=== PATIENT | male | born 1965 | race Two or more races ===

== ENCOUNTER → 2020-07-12 13:08 | Outpatient (BNVA) | payer OTHER, SELFPAY | PROVIDERS: Visit Provider Internal Medicine | DX: F11.99 Opioid use, unspecified with unspecified opioid-induced disorder (principal); Z79.899 Other long term (current) drug therapy | CPT/HCPCS: 80305; 99211 ==

== ENCOUNTER → 2020-08-10 11:00 | Outpatient (BNVA) | payer OTHER, SELFPAY | PROVIDERS: Visit Provider Internal Medicine | DX: Z76.89 Persons encountering health services in other specified circumstances (principal) ==

== ENCOUNTER 2020-08-10 12:32 | Outpatient (REF) | payer OTHER, SELFPAY | END 2020-08-10 12:33 | disposition home or self-care (01) | LOC: HO.LAB 12:32 | PROVIDERS: Visit Provider Internal Medicine | DX: Z20.828 Contact with and (suspected) exposure to other viral communicable diseases (principal) | CPT/HCPCS: 99212; C9803; U0003 ==

== ENCOUNTER → 2020-08-24 13:09 | Outpatient (BNVA) | payer OTHER, SELFPAY | PROVIDERS: Visit Provider Internal Medicine | DX: Z13.89 Encounter for screening for other disorder (principal) | CPT/HCPCS: 99211 ==

== ENCOUNTER → 2020-08-26 11:17 | Outpatient (BNVA) | payer OTHER, SELFPAY | PROVIDERS: PCP Internal Medicine; Referring Provider Internal Medicine; Visit Provider Nurse Practitioner | DX: Z76.89 Persons encountering health services in other specified circumstances (principal) ==

== ENCOUNTER → 2020-09-07 13:24 | Outpatient (BNVA) | payer OTHER, SELFPAY | PROVIDERS: Visit Provider Internal Medicine | DX: Z76.89 Persons encountering health services in other specified circumstances (principal) ==

== ENCOUNTER 2020-11-11 14:55 | Outpatient (REF) | payer OTHER, SELFPAY ==
[2020-11-13 22:57] LABS: Fentanyl, Ur NEGATIVE ng/mL (<0.5)
[2020-11-15 13:08] LABS: Buprenorphine Negative; Norbuprenorphine Negative
== END 2020-11-11 14:56 | disposition home or self-care (01) ==
LOC: HO.LNP 14:55
PROVIDERS: Visit Provider Internal Medicine
DX: F11.99 Opioid use, unspecified with unspecified opioid-induced disorder (principal); Z51.81 Encounter for therapeutic drug level monitoring; Z79.899 Other long term (current) drug therapy
CPT/HCPCS: 80305; 80348; 80354; 99211

== ENCOUNTER 2020-11-24 10:03 | Outpatient (REF) | payer OTHER, SELFPAY ==
[2020-11-28 07:51] LABS: Buprenorphine 13 ng/mL; Norbuprenorphine 45 ng/mL
== END 2020-11-24 10:04 | disposition home or self-care (01) ==
LOC: HO.LNP 10:03
PROVIDERS: Visit Provider Internal Medicine
DX: F11.99 Opioid use, unspecified with unspecified opioid-induced disorder (principal)
CPT/HCPCS: 80305; 80348; 99211

== ENCOUNTER → 2020-11-30 14:08 | Outpatient (BNVA) | payer OTHER, SELFPAY | PROVIDERS: PCP Physician Assistant; Visit Provider Internal Medicine | DX: F11.99 Opioid use, unspecified with unspecified opioid-induced disorder (principal); Z51.81 Encounter for therapeutic drug level monitoring; Z79.899 Other long term (current) drug therapy | CPT/HCPCS: 80305; 99211 ==

== ENCOUNTER 2020-12-14 13:33 | Outpatient (REF) | payer OTHER, SELFPAY ==
[2020-12-17 18:06] LABS: Buprenorphine 14 ng/mL; Norbuprenorphine 10 ng/mL
== END 2020-12-14 13:34 | disposition home or self-care (01) ==
LOC: HO.LAB 13:33
PROVIDERS: Visit Provider Internal Medicine
DX: F11.99 Opioid use, unspecified with unspecified opioid-induced disorder (principal); Z51.81 Encounter for therapeutic drug level monitoring
CPT/HCPCS: 80305; 80348; 99211

== ENCOUNTER 2020-12-22 13:46 | Outpatient (REF) | payer OTHER, SELFPAY ==
[2020-12-25 11:56] LABS: Buprenorphine 52 ng/mL; Norbuprenorphine 27 ng/mL
== END 2020-12-22 13:47 | disposition home or self-care (01) ==
LOC: HO.LAB 13:46
PROVIDERS: Visit Provider Internal Medicine
DX: F11.99 Opioid use, unspecified with unspecified opioid-induced disorder (principal); Z51.81 Encounter for therapeutic drug level monitoring
CPT/HCPCS: 80305; 80348; 99211

== ENCOUNTER 2021-06-19 13:28 | Outpatient (REF) | payer OTHER, SELFPAY | END 2021-06-19 13:29 | disposition home or self-care (01) | LOC: HO.LAB 13:28 | PROVIDERS: PCP Internal Medicine; Visit Provider Internal Medicine | DX: Z20.822 Contact with and (suspected) exposure to COVID-19 (principal) | CPT/HCPCS: C9803; U0003; U0005 ==

== ENCOUNTER 2021-09-15 16:14 | Emergency (ER) | payer OTHER, SELFPAY ==
--- NOTE | ~2021-09-15 | XR_ITS ---
EXAMINATION: XR CHEST CLINICAL INFORMATION: Fever, shortness of breath COMPARISON: Chest x-ray 07/16/2017 TECHNIQUE: 2 views of the chest were obtained. FINDINGS: Normal cardiomediastinal silhouette. Adequate expansion of the lungs. Minimal pleural parenchymal changes at the bilateral lung apices. No focal consolidation. No pleural effusion or pneumothorax. No acute osseous abnormality. Degenerative changes of the thoracic spine. XR/XR chest 2V IMPRESSION: No acute disease within the chest. No focal consolidation.
[2021-09-15 16:21] VITALS: BP 130/86; PULSE 88; RESP 24; TEMP 37; O2SAT 99; BMI 32.8
[2021-09-15 19:11] LABS: Influenza A PCR NEGATIVE (Negative); Influenza B PCR NEGATIVE (Negative); Resp Syncy Virus RNA Qual PCR NEGATIVE (Negative); SARS COV2 PCR INHOUSE POSITIVE (Negative)
== END 2021-09-15 19:35 | disposition left against medical advice (07) ==
PROVIDERS: Nurse Practitioner Family; Emergency Provider Emergency Medicine; PCP Internal Medicine
DX: U07.1 COVID-19 (principal); R06.02 Shortness of breath
CPT/HCPCS: 0241U; 71046; 99282; 99283

== ENCOUNTER 2022-06-08 12:38 | Outpatient (REF) | payer OTHER, SELFPAY ==
--- NOTE | ~2022-06-08 | XR_ITS ---
EXAMINATION: 1. RADIOGRAPHS RIGHT SHOULDER 2. RADIOGRAPHS LUMBAR SPINE 3. RADIOGRAPHS LEFT KNEE 4. RADIOGRAPHS LEFT ANKLE CLINICAL INFORMATION: Diffuse pain COMPARISON: Radiographs of the lumbar spine and left knee May 27, 2019 TECHNIQUE: 4 views of the right shoulder, 3 views of the lumbar spine, 2 views of the left knee and 3 views of the left ankle were obtained. FINDINGS: Right shoulder: Visualized portion of the proximal right humerus demonstrate no fracture. Humeral head demonstrates good articulation with the glenoid fossa. There is a small to moderate-sized osteophyte off the inferior glenoid margin. Subtle calcifications are noted along the soft tissues superior to the humeral head. The acromioclavicular joint is normal in appearance. Visualized right-sided ribs and lung parenchyma are unremarkable. Lumbar spine: 5 nonrib-bearing lumbar vertebral bodies are visualized. Alignment is within normal limits. Lumbar vertebral body heights are maintained. There is similar moderate narrowing of the L2/3 disc space height with mild narrowing of the L5/S1 disc space height. Small osteophytes are scattered throughout the lumbar spine. Mild degenerative changes of the posterior elements of the lower lumbar spine. Sacroiliac joints are symmetric. Mild vascular calcifications. Left knee: No fracture or dislocation. No joint effusion. Mild to moderate narrowing of the medial joint space height. Small osteophytes of the medial compartment. No focal soft tissue swelling of the anterior knee. Left ankle: Visualized portion of the distal tibia and fibula demonstrate no fracture. Ankle mortise is maintained. No focal soft tissue swelling of the ankle. Small osteophytes of the inferior medial malleolus. No gross ankle joint effusion. Prominent plantar calcaneal enthesophyte. XR/XR shoulder RT min 2V IMPRESSION: 1. Mild degenerative changes of the right shoulder with some adjacent soft tissue calcifications, possibly representing calcific tendinosis or hydroxyapatite deposition disease. 2. Mild degenerative changes of the lumbar spine without compression deformity. 3. Mild to moderate degenerative changes of the medial compartment of the left knee. 4. Mild degenerative changes of the left ankle without fracture or dislocation.
[2022-06-08 12:56] LABS: MANUAL DIFF FLAG NO
[2022-06-08 13:18] LABS: Basophils Percent Auto 0.3 % (0-2); Eosinophils Absolute Auto 0.2 X10*3/uL (0.0-0.4); Eosinophils Percent Auto 2.9 % (0-4); Hematocrit 43.7 % (42.0-52.0); Hemoglobin 14.2 g/dl (14.0-18.0); Imm Gran Abs Auto 0.02 X10*3/uL (0.00-0.03); Imm Gran Pct Auto 0.3 % (0.0-0.4); Lymphocytes Absolute Auto 1.7 X10*3/uL (1.2-4.9); Lymphocytes Percent Auto 26.8 % (20-40); Mean Corpuscular HGB Conc 32.5 g/dl (31.0-36.0); Mean Corpuscular Hemoglobin 29.2 pg (27.0-33.0); Mean Corpuscular Volume 89.9 fL (80.0-98.0); Mean Platelet Volume 9.2 fL (9.4-12.4); Monocytes Absolute Auto 0.3 X10*3/uL (0.1-1.2); Monocytes Percent Auto 5.1 % (2-11); Neutrophils Absolute Auto 4.1 x10*3/uL (2.0-8.3); Neutrophils Percent Auto 64.6 % (45-73); Platelet Count 238 X10*3/uL (160-400); Red Blood Count 4.86 X10*6/uL (4.60-5.80); Red Cell Distribution Width 13.9 % (11.0-16.0); White Blood Count 6.3 X10*3/uL (4.8-10.8)
[2022-06-08 13:37] LABS: Alanine Aminotransferase 20 U/L (0-40); Albumin Level 4.3 g/dL (3.5-5.0); Alkaline Phosphatase 102 U/L (39-117); Anion Gap 15 (12-20); Aspartate Amino Transferase 15 U/L (5-37); Bilirubin Total 0.3 mg/dL (0.0-1.0); Blood Urea Nitrogen 14 mg/dL (9-16); Calcium 9.4 mg/dL (8.4-10.2); Carbon Dioxide 24 mmol/L (22-29); Chloride 104 mmol/L (96-108); Cholesterol 240 mg/dL; Estimated Glomerular Filt Rate 51; Glucose Random 248 mg/dL (60-115); HDL Cholesterol 48 mg/dL; LDL Cholesterol Calculated 171 mg/dl; Potassium 4.1 mmol/L (3.3-5.1); Sodium 139 mmol/L (135-145); Total Protein 7.4 g/dL (6.5-8.0); Triglycerides 106 mg/dL
[2022-06-08 13:58] LABS: Free T4 (Free Thyroxine) 0.87 ng/dL (0.71-1.85); Prostate Specific Antigen Scr 1.67 ng/mL (<0.05-4.0); Thyroid Stimulating Hormone 0.89 uIU/mL (0.32-4.0)
[2022-06-08 14:07] LABS: HBS Num1 1.04 mIU/mL (0-7.99); HBsAGNum1 0.21 S/CO (0.00-0.99); Hepatitis B Core Antibody Nonreactive (Nonreactive); Hepatitis B Surface Antigen Negative (Negative); ~HepC Num1 0.13 S/CO (0.00-0.79); ~Hepatitis B Surface Antibody NONREACTIVE (Nonreactive); ~Hepatitis C Antibody Nonreactive (Nonreactive)
[2022-06-08 14:20] LABS: Folate 16.5 ng/mL (> or = 4.0); Vitamin B12 232 pg/mL (200-900)
[2022-06-11 21:37] LABS: TS Negative Control Passed; TS Panel A 0; TS Panel B 0; TS Positive Control Passed; TSpotTB Negative (Negative)
== END 2022-06-08 12:39 | disposition home or self-care (01) ==
LOC: HO.LAB 12:38
PROVIDERS: PCP Internal Medicine; Visit Provider Internal Medicine
DX: E78.00 Pure hypercholesterolemia, unspecified (principal); R79.89 Other specified abnormal findings of blood chemistry; M25.511 Pain in right shoulder; M54.50 Low back pain, unspecified; M25.562 Pain in left knee; M25.572 Pain in left ankle and joints of left foot
CPT/HCPCS: 36415; 72100; 73030; 73560; 73600; 80053; 80061; 82607; 82746; 84153; 84439; 84443; 85025; 86481; 86704; 86706; 86803; 87340

== ENCOUNTER 2022-07-26 11:58 | Outpatient (REF) | payer OTHER, SELFPAY ==
--- NOTE | 2022-07-26 08:15 | EMG_ITS ---
Right median and ulnar motor and sensory studies were performed. Right radial sensory study was performed and paraspinal muscles were tested with a needle. IMPRESSION: 1. Mild right median neuropathy across carpal tunnel. 2. Mild right ulnar neuropathy across cubital tunnel. MD HUSSEIN Méndez/NEY / [id number]
== END 2022-07-26 11:59 | disposition home or self-care (01) ==
LOC: HO.NEURO 11:58
PROVIDERS: Visit Provider Internal Medicine
DX: R73.9 Hyperglycemia, unspecified (principal)
CPT/HCPCS: 95886; 95909

== ENCOUNTER 2022-10-10 15:00 | Outpatient (REF) | payer OTHER, SELFPAY ==
--- NOTE | ~2022-10-10 | XR_ITS ---
EXAMINATION: XR ELBOW, LEFT CLINICAL INFORMATION: Pain COMPARISON: None TECHNIQUE: AP, lateral, and oblique views of the left elbow. FINDINGS: The bones and soft tissues are normal. No fracture or joint effusion. Alignment is anatomic. Joint spaces are maintained. XR/XR elbow LT 2V IMPRESSION: No acute osseous changes to explain patient's pain symptoms.
--- NOTE | ~2022-10-10 | XR_ITS ---
EXAMINATION: XR knee LT 2V CLINICAL INFORMATION: Reason for Exam M25.562 - Pain in left knee COMPARISON: None available at the time of this dictation. TECHNIQUE: Frontal and lateral FINDINGS: BONES: No fracture or dislocation is present. JOINTS: Narrowing of joint spaces and developed osteophytes from the edges of articular surfaces suggest degenerative osteoarthritis. There is a small knee joint effusion. SOFT TISSUE: Normal XR/XR knee LT 2V IMPRESSION: Mild to moderate degenerative osteoarthritis medial compartment. Small knee joint effusion.
[2022-10-10 15:19] LABS: MANUAL DIFF FLAG NO
[2022-10-10 15:43] LABS: Basophils Percent Auto 0.4 % (0-2); Eosinophils Absolute Auto 0.2 X10*3/uL (0.0-0.4); Eosinophils Percent Auto 2.3 % (0-4); Hematocrit 42.2 % (42.0-52.0); Hemoglobin 13.8 g/dl (14.0-18.0); Imm Gran Abs Auto 0.03 X10*3/uL (0.00-0.03); Imm Gran Pct Auto 0.4 % (0.0-0.4); Lymphocytes Absolute Auto 1.8 X10*3/uL (1.2-4.9); Mean Corpuscular HGB Conc 32.7 g/dl (31.0-36.0); Mean Corpuscular Hemoglobin 29.3 pg (27.0-33.0); Mean Corpuscular Volume 89.6 fL (80.0-98.0); Mean Platelet Volume 8.9 fL (9.4-12.4); Monocytes Absolute Auto 0.5 X10*3/uL (0.1-1.2); Neutrophils Percent Auto 65.9 % (45-73); Platelet Count 267 X10*3/uL (160-400); Red Blood Count 4.71 X10*6/uL (4.60-5.80); Red Cell Distribution Width 13.4 % (11.0-16.0); White Blood Count 7.7 X10*3/uL (4.8-10.8)
[2022-10-10 16:14] LABS: Estimated Average Glucose 140 mg/dL; Hemoglobin A1c % 6.5 %
[2022-10-10 16:23] LABS: Alanine Aminotransferase 70 U/L (0-40); Albumin Level 4.1 g/dL (3.5-5.0); Alkaline Phosphatase 123 U/L (39-117); Anion Gap 14 (12-20); Aspartate Amino Transferase 25 U/L (5-37); Bilirubin Total 0.5 mg/dL (0.0-1.0); Blood Urea Nitrogen 21 mg/dL (9-16); Calcium 9.4 mg/dL (8.4-10.2); Carbon Dioxide 22 mmol/L (22-29); Chloride 106 mmol/L (96-108); Cholesterol 217 mg/dL; Estimated Glomerular Filt Rate > 60; Glucose Random 108 mg/dL (60-115); HDL Cholesterol 43 mg/dL; LDL Cholesterol Calculated 134 mg/dl; Potassium 4.2 mmol/L (3.3-5.1); Sodium 138 mmol/L (135-145); Total Protein 7.3 g/dL (6.5-8.0); Triglycerides 201 mg/dL
[2022-10-10 16:33] LABS: Free T4 (Free Thyroxine) 1.15 ng/dL (0.71-1.85); Thyroid Stimulating Hormone 1.05 uIU/mL (0.32-4.0)
== END 2022-10-10 15:01 | disposition home or self-care (01) ==
LOC: HO.LAB 15:00
PROVIDERS: PCP Internal Medicine; Visit Provider Internal Medicine
DX: N28.9 Disorder of kidney and ureter, unspecified (principal); M25.522 Pain in left elbow; M25.562 Pain in left knee; E78.00 Pure hypercholesterolemia, unspecified
CPT/HCPCS: 36415; 73070; 73560; 80053; 80061; 83036; 84439; 84443; 85025

== ENCOUNTER 2022-10-11 16:25 | Outpatient (REF) | payer OTHER, SELFPAY ==
--- NOTE | ~2022-10-11 | CT_ITS ---
EXAMINATION: CT HEAD WITHOUT CONTRAST CLINICAL INFORMATION: Headache. Unspecified. COMPARISON: CT head 10/26/2019 TECHNIQUE: Contiguous axial imaging was performed from the skull base to vertex without intravenous administration of contrast. This CT examination was performed using dose optimization techniques as appropriate, variously including the following: *Automated exposure control *Adjustment of mA and/or kV according to patient size (this includes techniques or standardized protocols for targeted exams where dose is matched to indication/reason for exam; i.e. extremities or head) *Use of iterative reconstruction technique DLP: 952 mGy-cm FINDINGS: Focal hypodensity is present in the anterior limb of the right internal capsule extending into the adjacent body of the caudate nucleus. These findings are new compared with 10/26/2019. Focal subcortical hypodensity is present in the posterior left middle frontal lobe region (series 4 image 54) new compared with 10/26/2019. Mild scattered subcortical and periventricular white matter patchy hypodensities elsewhere are visualized and appear more prominent than 10/26/2019. Mild diffuse commensurate prominence of ventricles and sulci is noted slightly more prominent than on the 10/26/2019 examination. No intracranial hemorrhage, tumors or definitive acute infarcts are visualized. The orbits and globes are normal in appearance. No significant opacification of the visualized paranasal sinuses, mastoid air cells and middle ear cavities. Chronic posttraumatic deformity of the inferior wall the left orbit is noted with mild focal herniation of intraorbital fat and no gross herniation of the extraocular muscles. CT/CT head/brain wo IV con IMPRESSION: *Chronic appearing lacunar infarct within the anterior limb of the right internal capsule and adjacent caudate nucleus and mild scattered subcortical and periventricular white matter chronic microangiopathic ischemic changes. These findings are new compared with 10/26/2019 and could correlate with hypertensive or diabetic microangiopathic ischemic disease. 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
== END 2022-10-11 16:26 | disposition home or self-care (01) ==
LOC: HO.CT 16:25
PROVIDERS: PCP Internal Medicine; Visit Provider Internal Medicine
DX: R51.9 Headache, unspecified (principal); W19.XXXA Unspecified fall, initial encounter
CPT/HCPCS: 70450

== ENCOUNTER 2022-12-13 10:05 | Outpatient (REF) | payer OTHER, SELFPAY ==
--- NOTE | ~2022-12-13 | US_ITS ---
EXAMINATION: US ABDOMEN COMPLETE CLINICAL INFORMATION: Other specified abnormal findings of blood chemistry. COMPARISON: CT abdomen and pelvis without contrast 09/09/2013. TECHNIQUE: Real-time imaging of the abdominal viscera. Technically very limited study secondary to bowel gas and body habitus. FINDINGS: PANCREAS: The pancreas appears unremarkable, without masses or ductal dilatation, with the exception of the tail which is obscured by bowel gas. ABDOMINAL AORTA: The proximal aorta and distal abdominal aorta could not be seen. The mid abdominal aorta appeared normal. INFERIOR VENA CAVA: Visualized portions are normal. LIVER: The liver is normal in size. The liver contour is normal. There is diffuse increased liver parenchymal echogenicity, consistent with hepatic steatosis. Focal fatty sparing is seen adjacent to the gallbladder. No worrisome solid focal hepatic lesion. There is no intrahepatic biliary duct dilatation seen. GALLBLADDER: Normal. The gallbladder is physiologically distended without evidence of stones, sludge, polyps, wall thickening or pericholecystic fluid. COMMON BILE DUCT: Normal in caliber measuring 0.5 cm in diameter. RIGHT KIDNEY: No hydronephrosis. Some echogenic non-shadowing foci are seen thought to represent vascular interfaces rather than shadowing stones. No renal calculi or focal parenchymal lesions. The kidney measures 10.4 cm in maximum dimension. LEFT KIDNEY: Normal. No hydronephrosis. No renal calculi or focal parenchymal lesions. The kidney measures 10.3 cm in maximum dimension. SPLEEN: Spleen is mildly enlarged measuring 12.6 cm in maximum dimension. FREE FLUID: None. US/US abdomen complete IMPRESSION: 1. Hepatic steatosis. 2. Mild splenomegaly.
== END 2022-12-13 10:06 | disposition home or self-care (01) ==
LOC: HO.US 10:05
PROVIDERS: Visit Provider Internal Medicine
DX: R79.89 Other specified abnormal findings of blood chemistry (principal)
CPT/HCPCS: 76700

== ENCOUNTER 2023-02-14 08:52 | Emergency (ER) | payer OTHER, SELFPAY ==
--- NOTE | ~2023-02-14 | CT_ITS ---
EXAMINATION: CT brain and CT cervical spine without contrast. CLINICAL INDICATIONS: Acute head injury with LOC. TECHNIQUE: 2 mm thin axial and reformatted 2 mm thin sagittal coronal images of brain were obtained without contrast. Axial 3 mm thin and reformatted 2 mm thin sagittal and coronal images of cervical spine were obtained without contrast. DLP [address] examination was performed using dose optimization technique as appropriate, variously including the following: Automated exposure control Adjustment of MA and/or KV according to patient size(this includes techniques or standardized protocols for targeted exams where dose is matched to indication/reason for exam; extremities or head. Use of iterative reconstruction techniques. .. COMPARISON: CT brain 10/26/2019 and 10/11/2022. FINDINGS: There is no acute intra-axial, extra-axial bleed, masses or midline shift. There is no acute infarction evolution. There is no edema. There is a hypodensity in the right caudate nucleus new since 10/11/2022. Hypodensity in the right anterior limb of internal capsule is stable. The diffuse periventricular hypodensity seen throughout both cerebral hemispheres without mass effect. The lateral ventricles are symmetrical in size and configuration without enlargement. Bone windows reveal no acute calvarial abnormality. There is an old blowout fracture left inferior orbital wall, stable. The paranasal sinuses and mastoids cells are well-aerated and clear. Cervical spine: There is mild straightening of cervical lordosis. The vertebral heights, alignment and disc heights are normal. There is no visible acute fracture, dislocation or subluxation. The craniovertebral junction is normal. There is mild degenerative changes C1-C2 alignment. There is small fracture fragment seen superior to the C2 dense likely old injury or an enthesophyte. No visible acute fracture or dislocation seen. The prevertebral and the paravertebral soft tissues are normal. The airway is widely patent. The thyroid lobes are symmetrical and normal. The TM joints are symmetrical and normal CT/CT cervical spine wo IV con IMPRESSION: New area of right caudate nucleus hypodensity since the previous exam. Question acute versus old infarct. There is hypodensity along the anterior limb of right internal capsule which is unchanged likely chronic infarct. No acute intracranial bleed. No acute fracture, dislocation or subluxation seen the cervical spine. Small bone density of the tip of C2 dense likely an old fracture or an osteophyte. The prevertebral soft tissues are normal.
[2023-02-14 08:59] VITALS: BP 122/70; BP 153/90; PULSE 76; PULSE 80; RESP 18; TEMP 36.6; O2SAT 97; O2SAT 98; BMI 39.4
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
[2023-02-14] MEDS: Acetaminophen 325 MG TABLET 975 MG PO (09:24)
--- NOTE | 2023-02-14 11:36 | PC.NURSE ---
per MD Sin collar removed
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
== END 2023-02-14 12:10 | disposition home or self-care (01) ==
PROVIDERS: Emergency Provider Emergency Medicine; PCP Internal Medicine
DX: S00.03XA Contusion of scalp, initial encounter (principal); M54.2 Cervicalgia; R51.9 Headache, unspecified; F17.210 Nicotine dependence, cigarettes, uncomplicated; V43.52XA Car driver injured in collision with other type car in traffic accident, initial encounter; Y93.9 Activity, unspecified; Y92.410 Unspecified street and highway as the place of occurrence of the external cause; Y99.9 Unspecified external cause status; Z79.899 Other long term (current) drug therapy; Z71.6 Tobacco abuse counseling
CPT/HCPCS: 70450; 72125; 99283; 99284

== ENCOUNTER 2023-04-19 10:26 | Outpatient (REF) | payer OTHER, SELFPAY ==
--- NOTE | ~2023-04-19 | MR_ITS ---
EXAMINATION: MR BRAIN WITHOUT CONTRAST CLINICAL INFORMATION: Cerebral infarction, unspecified COMPARISON: CT head without contrast 02/14/2023 TECHNIQUE: Multiplanar multisequence MR imaging of the brain was obtained without intravenous contrast. FINDINGS: There is no acute infarct on diffusion-weighted imaging. Focus of susceptibility artifact adjacent to the atrium of the left lateral ventricle, likely sequela of remote microhemorrhage. No extra-axial collection or mass effect/herniation. Patchy periventricular, deep white matter, and brainstem T2 FLAIR hyperintensities consistent with moderate underlying microangiopathy. Chronic lacunar infarct involving the right caudate nucleus. No hydrocephalus. The ventricles are normal in morphology and size. The major flow voids at the skull base are preserved. The midline structures are normal. The cerebellar tonsils are normally positioned. The craniocervical junction is normal. Marrow signal is within normal limits. The visualized soft tissues are without significant abnormality. There is evidence of a prior left orbital floor fracture with herniation of orbital fat into the superior left maxillary antrum. Small mastoid fluid. MR/MR head/brain wo con IMPRESSION: 1. No acute intracranial abnormality. 2. Moderate chronic white matter microangiopathy. Chronic lacunar infarct in the right caudate nucleus
== END 2023-04-19 10:27 | disposition home or self-care (01) ==
LOC: HO.MRI 10:26
PROVIDERS: PCP Internal Medicine; Visit Provider Internal Medicine
DX: I63.9 Cerebral infarction, unspecified (principal)
CPT/HCPCS: 70551

== ENCOUNTER 2023-04-29 17:20 | Outpatient (REF) | payer OTHER, SELFPAY ==
[2023-04-29 17:37] LABS: MANUAL DIFF FLAG NO
[2023-04-29 17:52] LABS: Basophils Percent Auto 0.1 % (0-2); Eosinophils Absolute Auto 0.1 X10*3/uL (0.0-0.4); Eosinophils Percent Auto 1.7 % (0-4); Hematocrit 46.1 % (42.0-52.0); Hemoglobin 14.8 g/dl (14.0-18.0); Imm Gran Abs Auto 0.04 X10*3/uL (0.00-0.03); Imm Gran Pct Auto 0.5 % (0.0-0.4); Immature Retic Fraction 13.8 % (2.3-13.4); Lymphocytes Absolute Auto 1.6 X10*3/uL (1.2-4.9); Lymphocytes Percent Auto 20.4 % (20-40); Mean Corpuscular HGB Conc 32.1 g/dl (31.0-36.0); Mean Corpuscular Hemoglobin 29.5 pg (27.0-33.0); Mean Corpuscular Volume 91.8 fL (80.0-98.0); Monocytes Absolute Auto 0.5 X10*3/uL (0.1-1.2); Monocytes Percent Auto 5.9 % (2-11); Neutrophils Absolute Auto 5.4 x10*3/uL (2.0-8.3); Neutrophils Percent Auto 71.4 % (45-73); Platelet Count 252 X10*3/uL (160-400); Red Blood Count 5.02 X10*6/uL (4.60-5.80); Red Cell Distribution Width 13.9 % (11.0-16.0); Retic HGB Equivalent 33.8 pg (30.0-35.0); Reticulocyte Percent 1.9 % (0.5-1.8); Reticulocytes Absolute 0.097 X10*6/uL (0.026-0.095); White Blood Count 7.6 X10*3/uL (4.8-10.8)
[2023-04-29 18:32] LABS: Alanine Aminotransferase 17 U/L (0-40); Albumin Level 4.3 g/dL (3.5-5.0); Alkaline Phosphatase 107 U/L (39-117); Anion Gap 15 (12-20); Aspartate Amino Transferase 15 U/L (5-37); Bilirubin Total 0.5 mg/dL (0.0-1.0); Blood Urea Nitrogen 14 mg/dL (9-16); Calcium 9.7 mg/dL (8.4-10.2); Carbon Dioxide 26 mmol/L (22-29); Chloride 104 mmol/L (96-108); Cholesterol 197 mg/dL; Estimated Glomerular Filt Rate > 60; Glucose Random 111 mg/dL (60-115); HDL Cholesterol 49 mg/dL; Iron 79 mcg/dL (45-160); LDL Cholesterol Calculated 124 mg/dl; Percent Iron Saturation 27 % (15-50); Potassium 4.6 mmol/L (3.3-5.1); Sodium 140 mmol/L (135-145); Total Iron Binding Capacity 294 mcg/dL (228-428); Total Protein 7.9 g/dL (6.5-8.0); Triglycerides 124 mg/dL; Unsaturated Iron Binding 215 ug/dL
[2023-04-29 18:46] LABS: Ferritin 100 ng/mL (20-250)
[2023-04-29 18:58] LABS: Folate 8.9 ng/mL (> or = 4.0); Vitamin B12 265 pg/mL (200-900)
[2023-04-30 04:37] LABS: HBS Num1 0.16 mIU/mL (0-7.99); HBsAGNum1 0.36 S/CO (0.00-0.99); Hepatitis B Core Antibody Nonreactive (Nonreactive); Hepatitis B Surface Antigen Negative (Negative); ~HepC Num1 0.12 S/CO (0.00-0.79); ~Hepatitis B Surface Antibody NONREACTIVE (Nonreactive); ~Hepatitis C Antibody Nonreactive (Nonreactive)
== END 2023-04-29 17:21 | disposition home or self-care (01) ==
LOC: HO.LAB 17:20
PROVIDERS: PCP Internal Medicine; Visit Provider Internal Medicine
DX: E78.00 Pure hypercholesterolemia, unspecified (principal); R79.89 Other specified abnormal findings of blood chemistry
CPT/HCPCS: 36415; 80053; 80061; 82607; 82728; 82746; 83540; 85025; 85045; 86704; 86706; 86803; 87340

== ENCOUNTER 2023-04-30 13:40 | Outpatient (AMB) | payer OTHER, SELFPAY ==
[2023-04-30 13:46] VITALS: BP 130/68; PULSE 89; O2SAT 92; BMI 38.4
--- NOTE | 2023-04-30 13:46 | A.OFFPC_ITS ---
Vital Signs 04/30/23 13:46 Height 5 ft 11 in Weight 275 lb BMI 38.4 BP 130/68 Blood Pressure Location Lt brachial Position Sitting Pulse 89 Pulse Source Pulse Oximeter Pulse Oximetry (%) 92 Oxygen Delivery Method Room Air Intake Visit Reasons: PE Allergies soybean Allergy (Mild, Verified 04/30/23 13:46) hives seasonal Allergy (Mild, Uncoded 04/30/23 13:46) congestion Medication List - Last Reconciled 04/30/23 by Mike Bagley MD albuterol sulfate 90 mcg/actuation (Proventil HFA) 2 puffs inhalation Q4-6H PRN albuterol sulfate 90 mcg/actuation (Ventolin HFA) 2 puffs inhalation Q6H PRN aspirin (Adult Low Dose Aspirin) 81 mg PO DAILY [CANE As directed] cyclobenzaprine 7.5 mg PO TID PRN diclofenac sodium 1% (Voltaren Arthritis Pain) 4 grams topical QID lisinopril-hydrochlorothiazide 10-12.5 mg 1 tab PO DAILY omeprazole 20 mg PO DAILY 90 days sertraline 100 mg PO BEDTIME 90 days simvastatin 40 mg PO DAILY 90 days trazodone 150 mg PO BEDTIME PRN 90 days Tobacco use date assessed: 03/11/23 Dental Screening Dental Screen Date: 04/30/23 Did you have a dental visit in the last 12 months?: No Did you have a dental problem in the last 6 months where you did not have access to dental care?: No Was dental information given to patient?: Patient has dentist HPI PE HPI Details 57-year-old obese male smoker with diabetes mellitus hypertension generalized anxiety disorder COPD hypercholesterolemia and recent CVA coming in for physical exam. Last seen in February 2023. Noted brain MRI done April 2023 No acute intracranial abnormality. 2. Moderate chronic white matter microangiopathy. Chronic lacunar infarct in the right caudate nucleus sleepiong alot and having HEadahes . sleepy a lot - sleep study was not able to attend. R ear painful leaking fluids 1 week, REPLACED BY [facility] Medical History (Updated 04/30/23 @ 14:25 by Mike Bagley MD) Anxiety and depression Cervical pain (neck) COPD (chronic obstructive pulmonary disease) History of renal calculi Hypercholesterolemia Impaired fasting blood sugar Insomnia LFT elevation Numbness of right hand Obesity (BMI 30-39.9) Opioid use disorder EDUARDO (obstructive sleep apnea) Osteoarthritis Peripheral vascular disease Polysubstance abuse Sexually transmitted disease exposure Tobacco abuse Vitamin D deficiency Surgical History History of extraction of renal calculus History of repair of rotator cuff Family History (Updated 04/30/23 @ 14:01 by Mike Bagley MD) Father Medical history unknown Mother Seizure CVD (cerebrovascular disease) Hypertension Mental health disorder Brother Hypertension Diabetes Asthma Substance use disorder CVD (cerebrovascular disease) Son Murder Maternal Aunt Schizophrenia Social History (Updated 04/30/23 @ 14:02 by Mike Bagley MD) Housing: Other Alcohol intake: current Alcohol intake frequency: a few times a month Patient Tobacco Use Status: Current everyday Tobacco user Tobacco use type: Cigarette Cigarette Packs Per Day: 1 Cigarettes Per Day: 15 e-Cigarette/Vaping Use: Never Used Second Hand Smoke Exposure: Yes service: No Current occupational status: unemployed Cognitive needs: No Hearing needs: No Vision needs: Yes Questionnaire PHQ-9 Over the last 2 weeks, how often have you been bothered by any of the following problems? 1. Little interest or pleasure in doing things: nearly every day 2. Feeling down, depressed, or hopeless: nearly every day 3. Trouble falling or staying asleep, or sleeping too much: nearly every day 4. Feeling tired or having little energy: nearly every day 5. Poor appetite or overeating: nearly every day 6. Feeling bad about yourself - or that you are a failure or have let yourself or your family down: nearly every day 7. Trouble concentrating on things, such as reading the newspaper or watching television: nearly every day 8. Moving or speaking so slowly that other people could have noticed. Or the opposite - being so fidgety or restless that you have been moving around a lot more than usual: nearly every day 9. Thoughts that you would be better off or of hurting yourself in some way: nearly every day Total score: 27 Depression Screening Interpretation: Positive Source: Developed by Drs. Ricardo Love, Stephanie Javier, Yobany Victor and colleagues, with an educational ernestine from [employer]. Thrive Questionnaire Date Thrive assessed: 10/02/22 AUDIT C Alcohol Use Questionnaire (AUDIT-C) 1. How often do you have a drink containing alcohol?: 2-3 times a week 2. How many drinks containing alcohol do you have on a typical day when you are drinking?: 10 or more 3. How often do you have six or more drinks on one occasion?: Less than monthly Total Score: 8 TAMIE-7 AMB Questionnaire TAMIE-7 Date TAMIE - 7 assessed: 01/07/23 Source: Developed by Drs. Ricardo Love, Stephanie Javier, Yobany Victor and colleagues, with an educational ernestine from [employer]. Review of Systems Const Denies poor appetite and Denies weakness Eyes Denies no additional complaints ENT Reports Normal hearing present Card Denies chest pain, Denies syncope, Denies rapid heart rate and Denies dyspnea Resp Denies cough and Denies dyspnea GI Denies change in stool character, Reports constipation, Denies diarrhea, Denies nausea and Denies vomiting Denies dysuria and Denies urinary frequency Neuro Reports Normal hearing present, Denies confusion, Denies syncope and Denies weakness Psych Denies confusion Physical exam (Primary Care) Vital Signs: Last Vital Signs Pulse 89 04/30/23 13:46 BP 130/68 04/30/23 13:46 Pulse Ox 92 04/30/23 13:46 Oxygen Delivery Method Room Air 04/30/23 13:46 Care Plan Goal for BP management: Declined rectal exam and genital exam scaly rash interdigital of the foot with scaly rash on the plantar part of the feet right TM yellowish discharge noted BMI result Body Mass Index 38.4 Tobacco/Smoking Status: Tobacco use Status Tobacco use date assessed 03/11/23 04/30/23 13:48 Patient Tobacco Use Status Current everyday Tobacco 04/30/23 13:48 Tobacco use type Cigarette 04/30/23 13:48 e-Cigarette/Vaping Use Never Used 04/30/23 13:48 PHQ-9: PHQ-9 Score PHQ-9: Total score 27 04/30/23 13:56 Depression Screening Interpretation: Positive Thrive Assessment: Date of Thrive Assessment Date Thrive assessed 10/02/22 04/30/23 13:48 Const Other: Easily arousable but lethargic General: No confusion Orientation/consciousness: No confusion HENMT Other: Left TM intact Head: Yes normocephalic Ears: external ears normal Face and sinus: Yes normal facial exam Mouth: moist mucous membranes Throat: Yes tonsils normal Eyes Conjunctivae: conjunctivae normal Pupils: Equal, round and reactive pupils present and Pupil accommodation reflex normal Direct Ophthalmoscopy: normal light reflex Neck Neck: No lymphadenopathy Thyroid: Thyroid normal Chest Other: Lung exam crackles on the bases of the Resp Effort & Inspection: normal respiratory effort and no audible wheezes Auscultation: clear to auscultation bilaterally, no crackles, no wheezes and lung sounds not diminished Cardio Rate: regular rate Rhythm: regular rhythm Peripheral pulses: radial pulses present and dorsalis pedis present GI Palpation (GI): no masses Auscultation: normal bowel sounds and normoactive bowel sounds Rectal Exam - Male: Yes deferred Skin General skin exam: no rashes or lesions noted Rashes: no rashes Neuro General: deep tendon reflexes 2+ bilaterally and No confusion Cranial nerves: Yes Equal, round and reactive pupils present, Yes Midline tongue present, Yes Normal hearing present and Yes Ability to bilaterally elevate shoulders present Cognition (Neuro): normal cognition Gait exam (Neuro): Normal gait present Motor exam (neuro): 5/5 motor strength present throughout Deep tendon reflexes (DTR's): Right brachioradialis reflex intensity grade: 2+, Left brachioradialis reflex intensity grade: 2+, Right patellar reflex intensity grade: 2+ and Left patellar reflex intensity grade: 2+ Extrem General: No edema Results AMB Hemoglobin A1c AMB Hemoglobin A1c 6.4 % Last Edit by Audrey Villarreal CMA on 04/30/23 14 :00 Assessment and Plan Assessment & Plan (1) Annual physical exam: Code(s): Z00.00 - Encounter for general adult medical examination without abnormal findings (2) Obesity (BMI 30-39.9): Code(s): E66.9 - Obesity, unspecified Plan: Diet and exercise (3) EDUARDO (obstructive sleep apnea): Comment: Could not tolerate CPAP Code(s): G47.33 - Obstructive sleep apnea (adult) (pediatric) Plan: Discussed importance of treating sleep apnea with CPAP (4) GERD (gastroesophageal reflux disease): Code(s): K21.9 - Gastro-esophageal reflux disease without esophagitis Plan: Avoid the foods that causes that usually spicy foods, tomato products, juices, coffee, soda and foods that your sensitive to. After eating do not lie down, allow 3-4 hours before in lie down. And keep the head of bed above 30 degrees to avoid the acid from going up. (5) Hypercholesterolemia: Code(s): E78.00 - Pure hypercholesterolemia, unspecified Plan: Avoid fried foods, chicken skin, eggs, butter margarine, pastries and meat. Be it pork or beef they have a lot of cholesterol LDL goal of less than 70 and triglyceride of less than 150 (6) Hypertension: Code(s): I10 - Essential (primary) hypertension Plan: Continue with blood pressure medication. Decrease salt intake and exercise patient is on lisinopril hydrochlorothiazide 10/12.5 mg once a day (7) Type 2 diabetes mellitus with hyperglycemia: Code(s): E11.65 - Type 2 diabetes mellitus with hyperglycemia Plan: Decrease the amount of carbohydrate intake, pasta, bread, rice and potatoes are all sugar and that is aside from all the sweet stuff, remember that fruits are good but they are Sweet also. Hemoglobin A1c goal of less than 6.5 presently on no medications (8) CVA (cerebral vascular accident): Comment: January 2023 New area of right caudate nucleus hypodensity since the previous exam. Question acute versus old infarct. There is hypodensity along the anterior limb of right internal capsule which is unchanged likely chronic infarct. No acute intracranial bleed. No acute fracture, dislocation or subluxation seen the cervical spine. Small bone density of the tip of C2 dense likely an old fracture or an osteophyte. The prevertebral soft tissues are norm January 2023 Code(s): I63.9 - Cerebral infarction, unspecified Plan: Control the cholesterol, weight, blood pressure (9) Tobacco abuse: Code(s): Z72.0 - Tobacco use Plan: STOP SMOKING!!!! (10) Otitis media: Comment: r ear Code(s): H66.90 - Otitis media, unspecified, unspecified ear (11) Colon cancer screening: Code(s): Z12.11 - Encounter for screening for malignant neoplasm of colon (12) Onychomycosis: Code(s): B35.1 - Tinea unguium (13) Tinea pedis: Code(s): B35.3 - Tinea pedis (14) Cough: Code(s): R05.9 - Cough, unspecified Orders: Orders AMB Hemoglobin A1c Today Z13.9 - Encounter for screening, unspecified XR chest 2V Today R05.9 - Cough, unspecified Referrals Ophthalmology Referral E11.65 - Type 2 diabetes mellitus with hyperglycemia Sleep Medicine Referral G47.33 - Obstructive sleep apnea (adult) (pediatric) Gastroenterology Referral Z12.11 - Encounter for screening for malignant neoplasm of colon Podiatry Referral E11.65 - Type 2 diabetes mellitus with hyperglycemia Medications: New fluticasone furoate-vilanterol 200-25 mcg/dose (Breo Ellipta) 1 inh inhalation DAILY 90 ea 2RF J44.9 - Chronic obstructive pulmonary disease, unspecified [id number] 3.5-10,000-1 mg/mL-unit/mL-% 4 drps otic (ear) right Q8H 10 mL 0RF 10 days H66.90 - Otitis media, unspecified, unspecified ear amoxicillin-pot clavulanate 875-125 mg 1 tab PO BID 14 tabs 0RF H66.90 - Otitis media, unspecified, unspecified ear clotrimazole 1% 1 appl topical BID 45 grams 1RF 4 weeks B35.3 - Tinea pedis miconazole nitrate 2% (Zeasorb AF) 1 appl topical BID 85 grams 0RF B35.3 - Tinea pedis semaglutide for 4 weeks 0.25 mg (0.368 mL) subcut QWEEK 3 mL 1RF E11.65 - Type 2 diabetes mellitus with hyperglycemia Coding Level of Care Code Est Pt Prev Care 40-64y(41825) Diagnoses Annual physical exam Z00.00 Obesity (BMI 30-39.9) E66.9 EDUARDO (obstructive sleep apnea) G47.33 GERD (gastroesophageal reflux disease) K21.9 Hypercholesterolemia E78.00 Hypertension I10 Type 2 diabetes mellitus with hyperglycemia E11.65 CVA (cerebral vascular accident) I63.9 Tobacco abuse Z72.0 Otitis media H66.90 Colon cancer screening Z12.11 Onychomycosis B35.1 Tinea pedis B35.3 Cough R05.9
== END 2023-04-30 14:29 | disposition home or self-care (01) ==
PROVIDERS: PCP Internal Medicine; Visit Provider Internal Medicine
DX: E11.65 Type 2 diabetes mellitus with hyperglycemia (principal)
CPT/HCPCS: 83036; 99396

== ENCOUNTER 2023-07-25 14:44 | Outpatient (AMB) | payer OTHER, SELFPAY ==
--- NOTE | 2023-07-25 14:46 | A.OFFVIS_ITS ---
Intake Vital Signs 07/25/23 14:47 Height 5 ft 11 in Weight 280 lb 6.848 oz BMI 39.1 BP 183/106 H Blood Pressure Location Rt brachial Position Sitting Pulse 78 Intake Visit Reasons: Colonoscopy screening Intake Note: Patient presents to in office visit today as a new patient for colonoscopy screening. CC: Patient reports chocking with solids and liquids sometimes, onset a few years ago. He also reports having constipation and occasional abdominal pain. Pt has never had a colonoscopy before. [employer] Required: No Accompanied by: Self / Same As Patient Allergies soybean Allergy (Mild, Verified 04/30/23 13:46) hives No Known Drug Allergies Allergy (Unknown, Verified 07/25/23 14:55) none seasonal Allergy (Mild, Uncoded 04/30/23 13:46) congestion HPI Colonoscopy screening HPI Details 58-year-old male here for preprocedural meeting to discuss a screening colonoscopy. He is referred by Naveed Cespedes of [facility] primary care. PMX COPD Smoker EDUARDO a Opioid use disorder/polysubstance abuse obesity Diabetes History of CVA Fatty liver Hypertension Ulnar neuropathy right upper extremity Carpal tunnel syndrome Renal insufficiency Vitamin B12 deficiency Generalized anxiety disorder Constipation GERD Nephrolithiasis * SURGICAL HISTORY Renal calculus extraction x 3 Rotator cuff repair * ALLERGIES: NKDA * [employer] LABS: Laboratory Tests 04/29/23 04/29/23 04/30/23 17:36 17:36 13:48 WBC 7.6 Hgb 14.8 Hct 46.1 Plt Count 252 Estimated GFR > 60 Hgb A1c (Clinic) 6.4 H Ferritin 100 Total Bilirubin 0.5 AST 15 ALT 17 Alkaline Phosphata se 107 Hep Bs Antigen Negative Hep Bs Antibody NONREACTIVE Hep B Core Total A b Nonreactive Hepatitis C Ab (EI A) Nonreactive TODAY'S VISIT This is his first colonoscopy. He did not know why he was sent here today and I explained it. He suffers CIC that is managed by his PCP as is his GERD. He is satisfied with his current control. He has an extreme fear of needles (he can't see the needle and use a warm cloth and he is a hard stick). No other problems with anesthesia or sedation. Reports that he had 2 NJ's (he says this was seen on ultrasound question echocardiogram) and is in the process of seeing an digital marketing officer, and he has EDUARDO and COPD and still smokes. I am referring his for pulm and cardiac clearance before we will schedule a procedure; he says that his primary care provider had set him up with specialists but then he had to go to [place] to settle his mother's estate and only just returned a few weeks ago. He has regular dyspnea on exertion and intermittent chest pain. He suffers dyspnea on exertion, so clearly COPD is not controlled and his exact cardiac status is unclear. Also has obstructive sleep apnea but does not use a CPAP. No ID problems. There is no known FHX of crc or polyps. [facility] Medical History (Updated 07/25/23 @ 15:45 by LINO Herrera) Opioid use disorder Cervical pain (neck) LFT elevation Impaired fasting blood sugar Numbness of right hand Sexually transmitted disease exposure Polysubstance abuse Osteoarthritis COPD (chronic obstructive pulmonary disease) Peripheral vascular disease History of renal calculi Anxiety and depression Tobacco abuse Insomnia Obesity (BMI 30-39.9) EDUARDO (obstructive sleep apnea) Hypercholesterolemia Vitamin D deficiency Surgical History History of extraction of renal calculus History of repair of rotator cuff Family History Father Medical history unknown Mother Seizure CVD (cerebrovascular disease) Hypertension Mental health disorder Brother Hypertension Diabetes Asthma Substance use disorder CVD (cerebrovascular disease) Son Murder Maternal Aunt Schizophrenia Social History Housing: Other Alcohol intake: current Alcohol intake frequency: a few times a month Patient Tobacco Use Status: Current everyday Tobacco user Tobacco use type: Cigarette Cigarette Packs Per Day: 1 Cigarettes Per Day: 15 e-Cigarette/Vaping Use: Never Used Second Hand Smoke Exposure: Yes service: No Current occupational status: unemployed Cognitive needs: No Hearing needs: No Vision needs: Yes Review of Systems Const Denies fatigue, Denies fever(s), Denies night sweats, Denies poor appetite and Denies weight loss ENT Reports Normal hearing present, Denies dental pain, Denies dysphagia, Denies hearing loss, Denies mouth pain, Denies odynophagia, Denies throat swelling, Denies tongue swelling and Reports other (Dentition adequate) Card Reports chest pain and Reports dyspnea on exertion Resp Reports dyspnea on exertion GI Denies abdominal pain, Denies melena, Denies bloating, Denies hematochezia, Reports constipation, Denies GI cramping, Denies dysphagia, Denies excessive flatus, Denies early satiety, Reports heartburn, Denies diarrhea, Denies nausea, Denies odynophagia, Denies vomiting and Denies hematemesis Skin/Breast Denies pruritus, Denies lesions, Denies rash and Denies jaundice Neuro Reports Normal hearing present, Denies Abnormal speech present and Reports paresthesias Endo Denies fatigue Aller/Immun Denies throat swelling and Denies tongue swelling Physical Exam Vital Signs: Last Vital Signs Pulse 78 07/25/23 14:47 BP 183/106 H 07/25/23 14:47 BMI result Body Mass Index 39.1 Const General: cooperative, no acute distress, well developed and well groomed Nutritional Appearance: well nourished and obese morbidly obese Orientation/consciousness: oriented to person, oriented to place and oriented to time Limitations: No language barrier HEENT Head: Yes normocephalic and Yes atraumatic Eyes General: appearance normal, both eyes and all related structures Pupils: Equal, round and reactive pupils present Neck Neck: Yes normal visual inspection and Yes no lymphadenopathy Thyroid: Thyroid normal Resp Effort & Inspection: normal respiratory effort, audible wheezes and Actively coughing Auscultation: rhonchi lower bilaterally and wheezes scattered wheezes Cardio Rate: regular rate Rhythm: regular rhythm Heart sounds: Normal, physiologic split S2 sound present Peripheral pulses: radial pulses present and posterior tibial pulses present GI Inspection: No distended, Yes Abdominal panniculus present and Yes obesity Palpation (GI): Soft to palpation, nontender, no guarding, not rigid and No hepatosplenomegaly present Percussion: Yes normal to percussion Auscultation: normal bowel sounds Rectal Exam - Male: Yes deferred Skin General skin exam: no rashes or lesions noted, turgor normal, skin not dry, no jaundice, No spider nevi and no striae Rashes: no rashes Nails: normal Neuro General: oriented to person, oriented to place and oriented to time Cranial nerves: Yes Equal, round and reactive pupils present and Yes Normal hearing present Speech: No Abnormal speech present Extrem General: Yes normal to inspection, No clubbing, No cyanosis and No edema Psych Appearance: grossly normal and well kempt Mental Status: mental status grossly normal Speech and movement: Normal speech and movement present Affect: normal affect Attitude: cooperative Thought process: Normal thought process present and not confabulating Thought content: Normal thought content present Insight: Limited insight present (Psych) Judgement: Limited judgement present (Psych) Assessment & Plan Assessment & Plan (1) Pre-op examination: Code(s): Z01.818 - Encounter for other preprocedural examination Plan: This is his first colonoscopy. He did not know why he was sent here today and I explained it. He suffers CIC that is managed by his PCP as is his GERD. He is satisfied with his current control. He has an extreme fear of needles (he can't see the needle and use a warm cloth and he is a hard stick). No other problems with anesthesia or sedation. Reports that he had 2 NJ's (he says this was seen on ultrasound question echocardiogram) and is in the process of seeing an digital marketing officer, and he has EDUARDO and COPD and still smokes. I am referring his for pulm and cardiac clearance before we will schedule a procedure; he says that his primary care provider had set him up with specialists but then he had to go to [place] to settle his mother's estate and only just returned a few weeks ago. He has regular dyspnea on exertion and intermittent chest pain. He suffers dyspnea on exertion, so clearly COPD is not controlled and his exact cardiac status is unclear. Also has obstructive sleep apnea but does not use a CPAP. No ID problems. There is no known FHX of crc or polyps. (2) EDUARDO (obstructive sleep apnea): Comment: Could not tolerate CPAP Code(s): G47.33 - Obstructive sleep apnea (adult) (pediatric) (3) COPD (chronic obstructive pulmonary disease): Code(s): J44.9 - Chronic obstructive pulmonary disease, unspecified (4) Tobacco abuse: Code(s): Z72.0 - Tobacco use (5) History of NJ (myocardial infarction): Code(s): I25.2 - Old myocardial infarction (6) CVA (cerebral vascular accident): Comment: January 2023 New area of right caudate nucleus hypodensity since the previous exam. Question acute versus old infarct. There is hypodensity along the anterior limb of right internal capsule which is unchanged likely chronic infarct. No acute intracranial bleed. No acute fracture, dislocation or subluxation seen the cervical spine. Small bone density of the tip of C2 dense likely an old fracture or an osteophyte. The prevertebral soft tissues are norm January 2023 Code(s): I63.9 - Cerebral infarction, unspecified (7) History of heroin abuse: Comment: hx of snorting 5 bundles a day in 2019 Code(s): F11.11 - Opioid abuse, in remission (8) Type 2 diabetes mellitus with hyperglycemia: Code(s): E11.65 - Type 2 diabetes mellitus with hyperglycemia (9) Morbid obesity: Code(s): E66.01 - Morbid (severe) obesity due to excess calories (10) Renal insufficiency: Code(s): N28.9 - Disorder of kidney and ureter, unspecified Orders: Orders Colonoscopy - GI Use Only Today Referrals Cardiology Referral I25.2 - Old myocardial infarction Pulmonology Referral J44.9 - Chronic obstructive pulmonary disease, unspecified Medications: New peg 3350-electrolytes 236-22.74-6.74 -5.86 gram (Golytely) until fecal effluent is clear; do not exceed a total volume of 2,000 mL 240 mL PO Q10M 1 day 4,000 mL 0RF Z12.11 - Encounter for screening for malignant neoplasm of colon Coding Level of Care Code New Pt Level 3 (29527) Diagnoses Pre-op examination Z01.818 EDUARDO (obstructive sleep apnea) G47.33 COPD (chronic obstructive pulmonary disease) J44.9 Tobacco abuse Z72.0 History of NJ (myocardial infarction) I25.2 CVA (cerebral vascular accident) I63.9 History of heroin abuse F11.11 Type 2 diabetes mellitus with hyperglycemia E11.65 Morbid obesity E66.01 Renal insufficiency N28.9
[2023-07-25 14:47] VITALS: BP 183/106; PULSE 78; BMI 39.1
== END 2023-07-25 16:05 | disposition home or self-care (01) ==
PROVIDERS: PCP Internal Medicine; Visit Provider Nurse Practitioner
DX: Z01.818 Encounter for other preprocedural examination (principal); G47.33 Obstructive sleep apnea (adult) (pediatric); J44.9 Chronic obstructive pulmonary disease, unspecified; Z72.0 Tobacco use; I25.2 Old myocardial infarction; I63.9 Cerebral infarction, unspecified; F11.11 Opioid abuse, in remission; E11.65 Type 2 diabetes mellitus with hyperglycemia; E66.01 Morbid (severe) obesity due to excess calories; N28.9 Disorder of kidney and ureter, unspecified
CPT/HCPCS: 99203

== ENCOUNTER → 2023-07-25 14:44 | Outpatient (BNVA) | payer OTHER, SELFPAY | PROVIDERS: PCP Internal Medicine; Visit Provider Nurse Practitioner | DX: Z01.818 Encounter for other preprocedural examination (principal); G47.33 Obstructive sleep apnea (adult) (pediatric); J44.9 Chronic obstructive pulmonary disease, unspecified; Z72.0 Tobacco use; I25.2 Old myocardial infarction; I63.9 Cerebral infarction, unspecified; N28.9 Disorder of kidney and ureter, unspecified; E11.65 Type 2 diabetes mellitus with hyperglycemia; F11.11 Opioid abuse, in remission; E66.01 Morbid (severe) obesity due to excess calories; Z68.39 Body mass index [BMI] 39.0-39.9, adult | CPT/HCPCS: 99202 ==

== ENCOUNTER 2023-10-24 14:52 | Outpatient (AMB) | payer OTHER, SELFPAY ==
--- NOTE | 2023-10-24 14:55 | MHC.OFFVIS ---
Intake Vital Signs 10/24/23 14:56 Height 5 ft 11 in Weight 282 lb 3.067 oz BMI 39.4 BP 150/98 H Blood Pressure Location Rt brachial Position Sitting Pulse 84 Pulse Source Doppler Pulse Oximetry (%) 96 Oxygen Delivery Method Room Air Intake Visit Reasons: copd Allergies soybean Allergy (Mild, Verified 10/24/23 14:58) hives No Known Drug Allergies Allergy (Unknown, Verified 10/24/23 14:58) none seasonal Allergy (Mild, Uncoded 04/30/23 13:46) congestion HPI copd HPI Details 58-year-old gentleman active 35+ pack-year smoker referred for evaluation of his respiratory concerns. Patient complains of dyspnea on exertion, particularly when going up hills or stairs. He has also complains of unrestful sleep, somnolence during the daytime, and snoring. Patient states that he had a remote sleep study but it has been over 5 years. It does not have a CPAP machine at this time. He is interested in CPAP therapy. Patient denies prior personal history of lung disease. He does have 1 brother with asthma. 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 Patient is also complain of orthopnea, lower extremity edema, and paroxysmal nocturnal dyspnea. FOR[facility]LY [facility], [facility]ER [facility] Medical History (Updated 10/24/23 @ 15:17 by Radhames Hirsch MD) Opioid use disorder Cervical pain (neck) LFT elevation Impaired fasting blood sugar Numbness of right hand Sexually transmitted disease exposure Polysubstance abuse Osteoarthritis COPD (chronic obstructive pulmonary disease) Peripheral vascular disease History of renal calculi Anxiety and depression Tobacco abuse Insomnia Obesity (BMI 30-39.9) EDUARDO (obstructive sleep apnea) Hypercholesterolemia Vitamin D deficiency Surgical History History of extraction of renal calculus History of repair of rotator cuff Family History Father Medical history unknown Mother Seizure CVD (cerebrovascular disease) Hypertension Mental health disorder Brother Hypertension Diabetes Asthma Substance use disorder CVD (cerebrovascular disease) Son Murder Maternal Aunt Schizophrenia Social History (Updated 10/24/23 @ 14:59 by Vane Rivas Francisco) Housing: Other Alcohol intake: current Alcohol intake frequency: a few times a month Patient Tobacco Use Status: Current everyday Tobacco user Tobacco use type: Cigarette Cigarette Packs Per Day: 1 Cigarettes Per Day: 8 e-Cigarette/Vaping Use: Never Used Second Hand Smoke Exposure: Yes service: No Current occupational status: unemployed Cognitive needs: No Hearing needs: No Vision needs: Yes Review of Systems Const Reports daytime sleepiness, Denies excessive sweating, Reports fatigue, Denies fever(s), Reports lethargy, Denies malaise, Denies night sweats, Reports snoring and Denies weight loss Eyes Denies blurry vision and Denies itchy eyes ENT Denies nasal congestion, Denies post nasal drip, Denies sinus pain, Denies sinus pressure and Denies other ( Thrush) Card Denies chest pain, Reports pedal edema, Denies dyspnea, Reports dyspnea on exertion, Reports orthopnea and Reports paroxysmal nocturnal dyspnea Resp Denies cough, Denies hemoptysis, Denies excessive phlegm production, Denies dyspnea, Reports dyspnea on exertion, Reports snoring and Denies wheezing GI Denies abdominal pain and Denies heartburn Musc Denies myalgias, Denies arthralgias and Denies joint swelling Skin/Breast Denies rash Neuro Denies memory loss and Denies seizure-like activity Psych Denies abnormal sleep pattern, Denies anxiety and Denies memory loss Endo Denies excessive sweating, Reports fatigue and Denies heat intolerance Steve/Lymph Denies easy bruising Aller/Immun Denies itchy eyes, Denies seasonal rhinorrhea and Denies wheezing Physical Exam Vital Signs: Last Vital Signs Pulse 84 10/24/23 14:56 BP 150/98 H 10/24/23 14:56 Pulse Ox 96 10/24/23 14:56 Oxygen Delivery Method Room Air 10/24/23 14:56 BMI result Body Mass Index 39.4 Const General: no acute distress and alert Nutritional Appearance: obese Orientation/consciousness: Other orientation findings ( oriented) HEENT Head: Yes atraumatic Eyes General: appearance normal, both eyes and all related structures Sclerae: sclerae normal EOM: EOMs intact bilaterally Neck Neck: Yes supple Lymphatic: no lymphadenopathy noted Resp Effort & Inspection: normal respiratory effort and no use of accessory muscles Auscultation: clear to auscultation bilaterally Cardio Rate: regular rate Rhythm: regular rhythm Heart sounds: no gallops, no murmurs and no rubs Skin General skin exam: other ( warm) Extrem General: No clubbing, No cyanosis and Yes edema (2+ bilateral) Assessment & Plan Assessment & Plan (1) EDUARDO (obstructive sleep apnea): Code(s): G47.33 - Obstructive sleep apnea (adult) (pediatric) Plan: Will obtain sleep study. (2) DOLL (dyspnea on exertion): Code(s): R06.09 - Other forms of dyspnea Plan: Likely multifactorial with contribution from underlying cardiac, pulmonary, and obesity deconditioning etiologies. Will obtain 2D echocardiogram to evaluate cardiac component. (3) COPD (chronic obstructive pulmonary disease): Code(s): J44.9 - Chronic obstructive pulmonary disease, unspecified Plan: Of unclear severity. Will obtain full PFT. Suboptimally controlled on Dulera and albuterol MDI. Will add Spiriva. (4) Personal history of nicotine dependence: Code(s): Z87.891 - Personal history of nicotine dependence Plan: Will obtain lung cancer screening CT chest. Orders: Orders CA echo transthorac w con Today R06.09 - Other forms of dyspnea RT home sleep study Today G47.33 - Obstructive sleep apnea (adult) (pediatric) PFT pulmonary function test Today J44.9 - Chronic obstructive pulmonary disease, unspecified CT lung screening Today Z87.891 - Personal history of nicotine dependence Medications: New tiotropium bromide 2.5 mcg/actuation (Spiriva Respimat) 2 puffs inhalation QAM 4 grams 6RF 30 days J44.9 - Chronic obstructive pulmonary disease, unspecified Coding Level of Care Code New Pt Level 5 (63165) Diagnoses EDUARDO (obstructive sleep apnea) G47.33 DOLL (dyspnea on exertion) R06.09 COPD (chronic obstructive pulmonary disease) J44.9 Personal history of nicotine dependence Z87.891
[2023-10-24 14:56] VITALS: BP 150/98; PULSE 84; O2SAT 96; BMI 39.4
== END 2023-10-24 15:17 | disposition home or self-care (01) ==
PROVIDERS: PCP Internal Medicine; Visit Provider Internal Medicine Pulmonary Disease
DX: J44.9 Chronic obstructive pulmonary disease, unspecified (principal); G47.33 Obstructive sleep apnea (adult) (pediatric); Z87.891 Personal history of nicotine dependence
CPT/HCPCS: 99204

== ENCOUNTER → 2023-10-24 14:52 | Outpatient (BNVA) | payer OTHER, SELFPAY | PROVIDERS: PCP Internal Medicine; Visit Provider Internal Medicine Pulmonary Disease | DX: J44.9 Chronic obstructive pulmonary disease, unspecified (principal); R06.09 Other forms of dyspnea; G47.33 Obstructive sleep apnea (adult) (pediatric); Z87.891 Personal history of nicotine dependence | CPT/HCPCS: 99202 ==

== ENCOUNTER 2023-10-26 09:02 | Outpatient (REF) | payer OTHER, SELFPAY ==
--- NOTE | 2023-10-26 13:35 | PFT_ITS ---
Indication: EDUARDO Spirometry [FEV1 to FVC 80%; FEV1 2.79 L; FVC 3.49 L. There was a significant response to bronchodilators noted. Maximum voluntary ventilation 80% predicted] Lung Volumes [Total lung capacity 65% predicted; expiratory reserve volume 18% predicted] Diffusion Capacity [DLCO 59% predicted; DLCO corrected for the alveolar volume 83% predicted] Comparisons [None] Interpretation [No obstructive ventilatory defects. There was a significant response to bronchodilators noted. Normal maximum voluntary ventilation. The patient does have a restrictive ventilatory defect consistent with [id number] restrictive lung disease. Likely secondary to an elevated BMI although can not rule out neuromuscular conditions and or parenchymal lung disease. The patient also has a moderate diffusion impairment that corrects to normal when correcting for the alveolar volume. If asthma is new differential methacholine challenge may be helpful in assessing for hyperreactive airways. Otherwise clinical correlation warranted. Thank you.] RICARDOD
== END 2023-10-26 09:03 | disposition home or self-care (01) ==
LOC: HO.RESP 09:02
PROVIDERS: PCP Internal Medicine; Referring Provider Internal Medicine; Visit Provider Internal Medicine Pulmonary Disease
DX: J44.9 Chronic obstructive pulmonary disease, unspecified (principal)
CPT/HCPCS: 94010; 94640; 94727; 94729

== ENCOUNTER → 2023-10-26 13:35 | Outpatient (BNV) | payer OTHER, SELFPAY | PROVIDERS: PCP Internal Medicine; Referring Provider Internal Medicine; Visit Provider Hospitalist | DX: J44.9 Chronic obstructive pulmonary disease, unspecified (principal) | CPT/HCPCS: 94060; 94727; 94729 ==

== ENCOUNTER 2023-12-17 09:07 | Outpatient (AMB) | payer OTHER, SELFPAY ==
[2023-12-17 09:11] VITALS: BP 132/84; PULSE 85; BMI 40.0
--- NOTE | 2023-12-17 09:11 | MHC.OFFVIS ---
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 Florencia/Old myocardial infarction Intake Note: New patient per December Florencia has old ID patient states pcp told he saw it on a CT (after review it was a CVA) Weaver Dobby Loom Required: No Allergies soybean Allergy (Mild, Verified 10/24/23 14:58) hives No Known Drug Allergies Allergy (Unknown, Verified 10/24/23 14:58) none seasonal Allergy (Mild, Uncoded 04/30/23 13:46) congestion Medication List - Last Reconciled 12/17/23 by Rudolph Gomez MD albuterol sulfate 90 mcg/actuation (Proventil HFA) 2 puffs inhalation Q4-6H PRN aspirin (Adult Low Dose Aspirin) 81 mg PO DAILY [CANE As directed] clotrimazole 1% 1 appl topical BID 4 weeks cyclobenzaprine 7.5 mg PO TID PRN diclofenac sodium 1% (Voltaren Arthritis Pain) 4 grams topical QID dulaglutide (Trulicity) 0.75 mg (0.5 mL) subcut QWEEK lisinopril-hydrochlorothiazide 10-12.5 mg 1 tab PO DAILY miconazole nitrate 2% (Zeasorb AF) 1 appl topical BID mometasone-formoterol 200-5 mcg/actuation (Dulera) 2 puffs inhalation BID omeprazole 20 mg PO DAILY 90 days peg 3350-electrolytes 236-22.74-6.74 -5.86 gram (Golytely) 240 mL PO Q10M 1 day sertraline 100 mg PO BEDTIME 90 days simvastatin 40 mg PO DAILY 90 days tiotropium bromide 2.5 mcg/actuation (Spiriva Respimat) 2 puffs inhalation QAM 30 days trazodone 150 mg PO BEDTIME PRN 90 days HPI HPI Comments History of Present Illness Details Jose E was referred here for it seems like after talking to him for preoperative cardiovascular risk stratification prior to colonoscopy. Patient was listed as having a prior myocardial infarction but on talking to him he said he has never had any heart issues but has had a stroke in the past. He has multiple medical risk factors including morbid obesity, reduced exercise activity and sedentary lifestyle, smoking, diabetes, hypertension, hyperlipidemia for underlying vascular disease including having a prior stroke. He is currently on aspirin and intermediate intensity statin therapy. His LDL is currently at 122 mg/dL. Said does not exercise much because of knee issues. He does get short of breath with limited activity. Denies any symptoms of chest pain. Denies any orthopnea, PND, leg edema. Continues to smoke half a pack a day. Denies any prolonged palpitations irregular heartbeat. No lightheadedness, syncope. FORMERLY [facility] Medical History Opioid use disorder Cervical pain (neck) LFT elevation Impaired fasting blood sugar Numbness of right hand Sexually transmitted disease exposure Polysubstance abuse Osteoarthritis COPD (chronic obstructive pulmonary disease) Peripheral vascular disease History of renal calculi Anxiety and depression Tobacco abuse Insomnia Obesity (BMI 30-39.9) EDUARDO (obstructive sleep apnea) Hypercholesterolemia Vitamin D deficiency Surgical History History of extraction of renal calculus History of repair of rotator cuff Family History Father Medical history unknown Mother Seizure CVD (cerebrovascular disease) Hypertension Mental health disorder Brother Hypertension Diabetes Asthma Substance use disorder CVD (cerebrovascular disease) Son Murder Maternal Aunt Schizophrenia Social History Housing: Other Alcohol intake: current Alcohol intake frequency: a few times a month Patient Tobacco Use Status: Current everyday Tobacco user Tobacco use type: Cigarette Cigarette Packs Per Day: 1 Cigarettes Per Day: 8 e-Cigarette/Vaping Use: Never Used Second Hand Smoke Exposure: Yes service: No Current occupational status: unemployed Cognitive needs: No Hearing needs: No Vision needs: Yes Review of Systems Const Denies chills, Denies daytime sleepiness, Denies fatigue, Denies fever(s), Denies frequent falls, Denies poor appetite, Denies snoring, Denies stops breathing during sleep, Denies weakness, Denies weight gain and Denies weight loss Eyes Denies loss of vision ENT Denies dizziness and Denies hearing loss Card Denies chest pain, Denies claudication, Denies leg edema, Denies lightheadedness, Denies palpitations, Denies dyspnea, Denies dyspnea on exertion and Denies orthopnea Resp Denies cough, Denies excessive phlegm production, Denies dyspnea, Denies dyspnea on exertion, Denies snoring and Denies wheezing GI Denies abdominal pain, Denies hematochezia, Denies change in bowel habits, Denies nausea and Denies vomiting Denies dysuria and Denies urinary frequency Musc Denies arthralgias, Denies muscle weakness, Denies numbness and Denies other (frequent falls) Skin/Breast Denies nail changes and Denies rash Neuro Denies Abnormal speech present, Denies dizziness, Denies frequent falls, Denies loss of vision, Denies memory loss, Denies numbness and Denies weakness Psych Denies depression and Denies memory loss Endo Denies fatigue and Denies palpitations Steve/Lymph Reports easy bruising and Reports other (anemia) Aller/Immun Denies wheezing Physical Exam Vital Signs: Last Vital Signs Pulse 85 12/17/23 09:11 BP 132/84 12/17/23 09:11 BMI result Body Mass Index 40.0 Const General: cooperative, comfortable, no acute distress, alert, awake and Physically active Nutritional Appearance: obese morbidly obese Orientation/consciousness: patient oriented x3 Limitations: no limitations HEENT Head: Yes normocephalic and Yes atraumatic Neck Neck: Yes trachea midline, Yes supple and Yes no JVD Resp Effort & Inspection: normal respiratory effort Auscultation: crackles (coarse) and diminished lung sounds Cardio Jugular venous distension: no JVD Palpation: normal PMI Rate: regular rate Rhythm: regular rhythm Heart sounds: S1 normal heart sound present, S2 normal heart sound present, no click, no gallops, no murmurs and no rubs GI Inspection: Yes obesity Auscultation: normal bowel sounds Skin General skin exam: no rashes or lesions noted Neuro General: patient oriented x3 and no focal motor deficits Speech: No Abnormal speech present Extrem General: Yes no clubbing, cyanosis or edema Office Procedures EKG Details: EKG shows normal sinus rhythm with voltage criteria for LVH with nonspecific ST T wave changes which could represent repolarization abnormality [id number], Complete Assessment & Plan Assessment & Plan (1) Preoperative cardiovascular examination: Code(s): Z01.810 - Encounter for preprocedural cardiovascular examination Plan: Preoperative cardiovascular risk stratification for colonoscopy in this middle-aged man with multiple risk factors with significant shortness of breath with limited activity and limited exercise capacity. Need to evaluate for underlying structural heart issues that may impact his anesthesia risk for perioperative cardiovascular events. Would suggest a vasodilating myocardial perfusion imaging in near future to evaluate for significant myocardial ischemia. Also suggest echocardiogram to evaluate for LV systolic and diastolic function especially given his shortness of breath and morbid obesity. Further recommendations based on the finding of test results. Patient with prior history of CVA multiple risk factors. We discussed about smoking cessation. We also discussed about more aggressive risk factor modification with aggressive weight loss program regular physical activity. He should be on high-intensity statin therapy such as atorvastatin 80 or rosuvastatin 40 mg to target goal LDL less than 70 mg/dL. Blood pressure is currently well optimized. Diabetes under your care. Will follow up in the clinic if need be. Thank you for allowing me to partake in his care Orders: Orders CA echo transthoracic complete Today CA lexiscan stress w wilber Today Coding Level of Care Code New Pt Level 4 (73437) Diagnoses Preoperative cardiovascular examination Z01.810 CPT Codes EKG - CPT: 67164-[id number], Complete ([id number])
== END 2023-12-17 09:54 | disposition home or self-care (01) ==
PROVIDERS: PCP Internal Medicine; Visit Provider Internal Medicine Cardiovascular Disease
DX: Z01.810 Encounter for preprocedural cardiovascular examination (principal)
CPT/HCPCS: 93010; 99204

== ENCOUNTER 2023-12-17 09:49 | Outpatient (REF) | payer OTHER, SELFPAY ==
--- NOTE | ~2023-12-17 | CT_ITS ---
EXAMINATION: CT CHEST SCREENING CLINICAL INFORMATION: Personal history of nicotine use. Current smoker at 1 pack per day with a history of 45 pack-years. COMPARISON: None available. TECHNIQUE: Multidetector volumetric CT imaging of the chest is performed without contrast using low dose technique. Additional 2D coronal and sagittal reformatted images and axial 3D maximum intensity projection (MIP) images are generated on the CT workstation. This CT examination was performed using dose optimization techniques as appropriate, variously including the following: *Automated exposure control *Adjustment of mA and/or kV according to patient size (this includes techniques or standardized protocols for targeted exams where dose is matched to indication/reason for exam; i.e. extremities or head) *Use of iterative reconstruction technique DLP: 95.00 mGy-cm FINDINGS: Pulmonary nodules: A number of pulmonary nodules are present and rosa images of all have been saved. The largest is in the left upper lobe measuring 4 mm in size (5:96). Some punctate scattered calcified granulomas are present. LUNGS: Emphysematous changes are seen along with bronchial thickening. MEDIASTINUM: There is a 1.0 cm preaortic lymph node in the anterior mediastinum with some smaller AP window lymph nodes. No mediastinal or hilar lymphadenopathy is seen. CORONARY ARTERY CALCIFICATION: Moderate PLEURA: There is no pleural effusion. No pleural mass or thickening. AXILLA: No lymphadenopathy. UPPER ABDOMEN: Unremarkable OSSEOUS STRUCTURES: Unremarkable. CT/CT lung screening IMPRESSION: Benign-appearing pulmonary nodules, the largest measuring 4 mm. No evidence seen to suggest malignancy. ASSESSMENT: Lung-RADS category 2: Benign RECOMMENDATION: Routine annual low-dose CT screening in 12 months.
== END 2023-12-17 09:50 | disposition home or self-care (01) ==
LOC: HO.CT 09:49
PROVIDERS: PCP Internal Medicine; Visit Provider Internal Medicine Pulmonary Disease
DX: Z01.810 Encounter for preprocedural cardiovascular examination (principal); G47.33 Obstructive sleep apnea (adult) (pediatric); I25.2 Old myocardial infarction; E66.01 Morbid (severe) obesity due to excess calories; E11.9 Type 2 diabetes mellitus without complications; I10 Essential (primary) hypertension; E78.5 Hyperlipidemia, unspecified; F17.210 Nicotine dependence, cigarettes, uncomplicated; Z79.899 Other long term (current) drug therapy
CPT/HCPCS: 71271; 93005; 99202

== ENCOUNTER → 2024-02-06 19:30 | Outpatient (REF) | payer OTHER, SELFPAY | LOC: HO.SL 19:30 | PROVIDERS: PCP Nurse Practitioner Family; Visit Provider Internal Medicine Pulmonary Disease | DX: Z13.89 Encounter for screening for other disorder (principal) ==

== ENCOUNTER 2024-04-21 08:30 | Outpatient (REF) | payer OTHER, SELFPAY ==
[2024-04-21 08:42] LABS: MANUAL DIFF FLAG NO
[2024-04-21 09:28] LABS: Basophils Percent Auto 0.3 % (0-2); Eosinophils Absolute Auto 0.2 X10*3/uL (0.0-0.4); Eosinophils Percent Auto 2.2 % (0-4); Hematocrit 46.2 % (42.0-52.0); Hemoglobin 15.5 g/dl (14.0-18.0); Imm Gran Abs Auto 0.07 X10*3/uL (0.00-0.03); Lymphocytes Absolute Auto 1.8 X10*3/uL (1.2-4.9); Lymphocytes Percent Auto 24.5 % (20-40); Mean Corpuscular HGB Conc 33.5 g/dl (31.0-36.0); Mean Corpuscular Hemoglobin 29.8 pg (27.0-33.0); Mean Corpuscular Volume 88.8 fL (80.0-98.0); Monocytes Absolute Auto 0.5 X10*3/uL (0.1-1.2); Monocytes Percent Auto 6.9 % (2-11); Neutrophils Absolute Auto 4.8 x10*3/uL (2.0-8.3); Neutrophils Percent Auto 65.1 % (45-73); Platelet Count 251 X10*3/uL (160-400); Red Cell Distribution Width 13.2 % (11.0-16.0); White Blood Count 7.3 X10*3/uL (4.8-10.8)
[2024-04-21 09:29] LABS: Estimated Average Glucose 292 mg/dL; Hemoglobin A1c % 11.8 % (<6.0)
[2024-04-21 09:55] LABS: Alanine Aminotransferase 32 U/L (0-40); Albumin Level 4.2 g/dL (3.5-5.0); Alkaline Phosphatase 143 U/L (39-117); Anion Gap 14 (12-20); Aspartate Amino Transferase 25 U/L (5-37); Bilirubin Total 0.8 mg/dL (0.0-1.0); Blood Urea Nitrogen 28 mg/dL (9-16); Calcium 9.7 mg/dL (8.4-10.2); Carbon Dioxide 23 mmol/L (22-29); Chloride 101 mmol/L (96-108); Cholesterol 254 mg/dL (<200); Estimated Glomerular Filt Rate 35; Glucose Random 298 mg/dL (60-115); HDL Cholesterol 30 mg/dL (>40); LDL Cholesterol Calculated 173 mg/dL (<100); Potassium 5.3 mmol/L (3.3-5.1); Sodium 133 mmol/L (135-145); Total Protein 7.6 g/dL (6.5-8.0); Triglycerides 255 mg/dL (<150)
[2024-04-21 09:58] LABS: Thyroid Stimulating Hormone 1.26 uIU/mL (0.32-4.0)
[2024-04-21 10:49] LABS: Microalbum/Creatinine Ratio Ur 57.4 ug/mg cr (<30)
[2024-04-21 11:00] LABS: Folate 10.4 ng/mL (> or = 4.0); Prostate Specific Antigen Scr 1.55 ng/mL (<0.05-4.0); Vitamin B12 411 pg/mL (200-900)
== END 2024-04-21 08:31 | disposition home or self-care (01) ==
LOC: HO.LAB 08:30
PROVIDERS: PCP Internal Medicine; Visit Provider Internal Medicine
DX: E11.65 Type 2 diabetes mellitus with hyperglycemia (principal); E78.00 Pure hypercholesterolemia, unspecified
CPT/HCPCS: 36415; 80053; 80061; 82043; 82570; 82607; 82746; 83036; 84153; 84439; 84443; 85025

== ENCOUNTER 2024-05-05 13:11 | Outpatient (AMB) | payer OTHER, SELFPAY ==
[2024-05-05 13:27] VITALS: BP 146/108; PULSE 75; O2SAT 93; BMI 37.7
--- NOTE | 2024-05-05 13:27 | A.OFFPC_ITS ---
Vital Signs 05/05/24 13:27 Height 5 ft 11 in Weight 270 lb 0.4 oz BMI 37.7 BP 146/108 H Blood Pressure Location Lt brachial Position Sitting Pulse 75 Pulse Source Pulse Oximeter Pulse Oximetry (%) 93 Oxygen Delivery Method Room Air Intake Visit Reasons: PE- NEEDS A1C+ PHQ9 Intake Note: Patient is here today for a physical. 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: No Allergies soybean Allergy (Mild, Verified 05/05/24 13:27) hives No Known Drug Allergies Allergy (Unknown, Verified 05/05/24 13:27) none seasonal Allergy (Mild, Uncoded 05/05/24 13:27) congestion Medication List - Last Reconciled 05/05/24 by Janki Freire PA-C albuterol sulfate 90 mcg/actuation (Proventil HFA) 2 puffs inhalation Q4-6H PRN aspirin (Adult Low Dose Aspirin) 81 mg PO DAILY [CANE As directed] clotrimazole 1% 1 appl topical BID 4 weeks diclofenac sodium 1% (Voltaren Arthritis Pain) 4 grams topical QID dulaglutide (Trulicity) 0.75 mg (0.5 mL) subcut QWEEK lisinopril-hydrochlorothiazide 10-12.5 mg 1 tab PO DAILY miconazole nitrate 2% (Zeasorb AF) 1 appl topical BID mometasone-formoterol 200-5 mcg/actuation (Dulera) 2 puffs inhalation BID omeprazole 20 mg PO DAILY 90 days peg 3350-electrolytes 236-22.74-6.74 -5.86 gram (Golytely) 240 mL PO Q10M 1 day rosuvastatin 20 mg PO DAILY tiotropium bromide 2.5 mcg/actuation (Spiriva Respimat) 2 puffs inhalation QAM 30 days trazodone 150 mg PO BEDTIME PRN 90 days Tobacco use date assessed: 05/05/24 Dental Screening Dental Screen Date: 05/05/24 Did you have a dental visit in the last 12 months?: No Did you have a dental problem in the last 6 months where you did not have access to dental care?: No HPI PE- NEEDS A1C+ PHQ9 HPI Details 58-year-old obese male smoker with diabe shane mellitus, hypertension, generalized anxiety disorder, COPD, hypercholesterolemia, and CVA last seen by Dr. Bagley coming in for a physical exam. In review of the notes, patient follows with Cardiology November 2023 for cardiovascular risk stratification prior to colonoscopy and suggested echocardiogram and myocardial perfusion study.? Also recommended starting on high-intensity statin and tight blood pressure and diabetic management.? Patient was also seen by pulmonology October 2023 tatyana mmended sleep study and echocardiogram enrolled in annual lung cancer screening. Patient states that he has been overwhelmed with his health lately and has been not following up with appropriate appointments and has been without his daily medications for about 2-3 months now. Two weeks ago he started monitoring his blood sugar and found that his values were consistently over 500. He has been without treatment for his chronic diseases for several months and has been starting to notice them out of control. He has been having shortness of breath without his inhalers for COPD. He states he has a lot of anxiety and depression surrounding his current health and finds it hard to take care of himself. He also mentions he has a hard time managing his medications himself. [facility] Medical History Opioid use disorder Cervical pain (neck) LFT elevation Impaired fasting blood sugar Numbness of right hand Sexually transmitted disease exposure Polysubstance abuse Osteoarthritis COPD (chronic obstructive pulmonary disease) Peripheral vascular disease History of renal calculi Anxiety and depression Tobacco abuse Insomnia Obesity (BMI 30-39.9) EDUARDO (obstructive sleep apnea) Hypercholesterolemia Vitamin D deficiency Surgical History History of extraction of renal calculus History of repair of rotator cuff Family History Father Medical history unknown Mother Seizure CVD (cerebrovascular disease) Hypertension Mental health disorder Brother Hypertension Diabetes Asthma Substance use disorder CVD (cerebrovascular disease) Son Murder Maternal Aunt Schizophrenia Social History Housing: Other Alcohol intake: current Alcohol intake frequency: a few times a month Patient Tobacco Use Status: Current everyday Tobacco user Tobacco use type: Cigarette Cigarette Packs Per Day: 1 Cigarettes Per Day: 8 e-Cigarette/Vaping Use: Never Used Second Hand Smoke Exposure: Yes service: No Current occupational status: unemployed Cognitive needs: No Hearing needs: No Vision needs: Yes Questionnaire PHQ-9 Over the last 2 weeks, how often have you been bothered by any of the following problems? 1. Little interest or pleasure in doing things: nearly every day 2. Feeling down, depressed, or hopeless: nearly every day 3. Trouble falling or staying asleep, or sleeping too much: nearly every day 4. Feeling tired or having little energy: nearly every day 5. Poor appetite or overeating: nearly every day 6. Feeling bad about yourself - or that you are a failure or have let yourself or your family down: nearly every day 7. Trouble concentrating on things, such as reading the newspaper or watching television: nearly every day 8. Moving or speaking so slowly that other people could have noticed. Or the opposite - being so fidgety or restless that you have been moving around a lot more than usual: nearly every day 9. Thoughts that you would be better off or of hurting yourself in some way: several days Total score: 25 [id number] - PHQ-9 Billing: Yes Source: Developed by Drs. Ricardo Love, Stephanie Javier, Yobany Victor and colleagues, with an educational ernestine from [employer]. Thrive Questionnaire Date Thrive assessed: 10/02/22 AUDIT C Alcohol Use Questionnaire (AUDIT-C) 1. How often do you have a drink containing alcohol?: 2-3 times a week 2. How many drinks containing alcohol do you have on a typical day when you are drinking?: 10 or more 3. How often do you have six or more drinks on one occasion?: Less than monthly Total Score: 8 TAMIE-7 AMB Questionnaire TAMIE-7 Date TAMIE - 7 assessed: 05/05/24 Feeling nervous, anxious, or on edge: 3 = Nearly every day Not being able to stop or control worryin = Nearly every day Worrying too much about different things: 3 = Nearly every day Trouble relaxin = Nearly every day Being so restless that it is hard to sit still: 3 = Nearly every day Becoming easily annoyed or irritable: 3 = Nearly every day Feeling afraid as if something awful might happen: 0 = Not at all Total TAMIE-7 score (0-4 normal; 5-9 mild; 10-14 moderate; 15-21 severe): 18 Source: Developed by Drs. Ricardo Love, Stephanie Javier, Yobany Victor and colleagues, with an educational ernestine from [employer]. TAMIE-7 Assessment Billing TAMIE-7 Assessment Tool: TAMIE-7 Assessment 10661 Review of Systems Const Denies body aches, Reports fatigue, Denies fever(s), Denies frequent falls, Denies headache(s), Reports weakness and Reports weight gain Eyes Reports no additional complaints and Reports change in vision (Blurred vision) ENT Denies dysphagia, Denies dizziness, Denies facial pain, Denies headache(s), Denies nasal congestion and Denies odynophagia Card Denies chest pain, Denies syncope, Denies irregular heart rhythm, Denies leg edema, Denies lightheadedness and Reports dyspnea Resp Denies cough and Reports dyspnea GI Denies constipation, Denies dysphagia, Denies dyspepsia, Denies diarrhea, Denies nausea, Denies odynophagia and Denies vomiting Denies dysuria, Denies urinary frequency, Denies urinary hesitancy and Denies urinary urgency Musc Denies back pain and Denies myalgias Skin/Breast Reports system reviewed and no additional complaints, except as documented Neuro Denies dizziness, Denies syncope, Denies frequent falls, Denies headache(s), Reports memory loss and Reports weakness Psych Reports as per HPI, Reports anxiety and Reports memory loss Endo Reports fatigue Physical exam (Primary Care) Vital Signs: Last Vital Signs Pulse 75 05/05/24 13:27 BP 146/108 H 05/05/24 13:27 Pulse Ox 93 05/05/24 13:27 Oxygen Delivery Method Room Air 05/05/24 13:27 BMI result Body Mass Index 37.7 Tobacco/Smoking Status: Tobacco use Status Tobacco use date assessed 05/05/24 05/05/24 13:28 Patient Tobacco Use Status Current everyday Tobacco 05/05/24 13:28 Tobacco use type Cigarette 05/05/24 13:28 e-Cigarette/Vaping Use Never Used 05/05/24 13:28 PHQ-9: PHQ-9 Score PHQ-9: Total score 25 05/05/24 14:19 Thrive Assessment: Date of Thrive Assessment Date Thrive assessed 10/02/22 05/05/24 13:28 Const General: cooperative, healthy appearing, comfortable and no acute distress Orientation/consciousness: patient oriented x3 HENMT Head: Yes normocephalic Ears: hearing grossly normal bilaterally General nose exam: Normal external nose present Eyes General: appearance normal, both eyes and all related structures Conjunctivae: conjunctivae normal Neck Neck: Yes full ROM and Yes no lymphadenopathy Resp Effort & Inspection: normal respiratory effort Auscultation: clear to auscultation bilaterally, no crackles, no rales, no rhonchi and no wheezes Cardio Rate: regular rate Rhythm: regular rhythm Skin General skin exam: no rashes or lesions noted Neuro General: patient oriented x3 Gait exam (Neuro): Normal gait present Extrem General: Yes normal to inspection, Yes full ROM and No edema Psych Affect: normal affect Attitude: cooperative Insight: Good insight present (Psych) Judgement: Good judgement present (Psych) Assessment and Plan Assessment & Plan (1) GERD (gastroesophageal reflux disease): Code(s): K21.9 - Gastro-esophageal reflux disease without esophagitis Plan: Refills sent for omeprazole Avoid trigger foods such as citrus, tomato products, soda, caffeine, spicy foods and other foods that may be irritating to your stomach. Avoid laying flat 3-4 hours after eating and elevate the head of the bed 30 degrees to prevent acid from moving into the esophagus. (2) Hypercholesterolemia: Code(s): E78.00 - Pure hypercholesterolemia, unspecified Plan: Cholesterol significantly elevated on last labs and patient has been without simvastatin. Per Cardiology recommendation patient should be on a high-intensity statin we will start on rosuvastatin 20 mg with plan to increase to 40 mg in 6 weeks at next appointment. Avoid foods that are high in cholesterol such as red meat, fried foods, eggs and baked goods. Triglyceride goal of less than 150 and LDL goal of less than 70. We will order for repeat cholesterol test prior to next visit. (3) Tobacco abuse: Code(s): Z72.0 - Tobacco use Plan: Patient is strongly advised to stopped smoking. Counseling offered today at this visit and patient has declined smoking cessation treatment. (4) COPD (chronic obstructive pulmonary disease): Code(s): J44.9 - Chronic obstructive pulmonary disease, unspecified Plan: Strongly advised to stop smoking. Patient has been having increased shortness of breath without his inhalers. Refill sent for albuterol, Spiriva, and Dulera. And continue to follow up with pulmonology. (5) Generalized anxiety disorder: Comment: [facility], Weekly Code(s): F41.1 - Generalized anxiety disorder Plan: Referral for outpatient psych clinic placed today. Refill sent for trazodone and sertraline. (6) Hypertension: Code(s): I10 - Essential (primary) hypertension Plan: Patient's blood pressure in the office today with significantly elevated 146/108 and continued to be elevated after retaking it. Decrease salt intake and exercise patient is on lisinopril hydrochlorothiazide 10/12.5 mg once a day but has been without this medication. Refilled medication and we will follow up in 6 weeks. (7) Type 2 diabetes mellitus with hyperglycemia: Code(s): E11.65 - Type 2 diabetes mellitus with hyperglycemia Plan: A1c was elevated today over 11%. Patient has been without his Trulicity for several months. Advised patient to check blood sugars daily and prescription for monitor was sent to pharmacy today. Refill for Trulicity sent today and we will also trial on Jardiance. Patient has declined insulin as he feels he can not manage this himself. Referral for VNA placed to assist with medication administration. Referral to endocrinology placed. Decrease the amount of carbohydrates such as pasta, bread, rice, and potatoes and limit the amount of sweets. Although fruits are generally healthy they should be eaten in moderation as they are still high in sugar. Hemoglobin A1c goal of less than 7%. (8) Fatty liver: Comment: November 2022 Code(s): K76.0 - Fatty (change of) liver, not elsewhere classified Plan: Continue to monitor LFTs. (9) CVA (cerebral vascular accident): Comment: January 2023 New area of right caudate nucleus hypodensity since the previous exam. Question acute versus old infarct. There is hypodensity along the anterior limb of right internal capsule which is unchanged likely chronic infarct. No acute intracranial bleed. No acute fracture, dislocation or subluxation seen the cervical spine. Small bone density of the tip of C2 dense likely an old fracture or an osteophyte. The prevertebral soft tissues are norm January 2023 Code(s): I63.9 - Cerebral infarction, unspecified Plan: Tight control of diabetes, hypertension, and cholesterol. Encouraged healthy diet and exercise and encouraged stop smoking. Reestablish patient on his medication regimen. Referral for VNA placed for assistance with medication administration and activities of daily living. (10) Obesity (BMI 30-39.9): Code(s): E66.9 - Obesity, unspecified Plan: Encouraged healthy diet and exercise. Plan Discuss this case with nurse navigator today who was able to meet with the patient at that time and discuss goals of care. We will follow up in 6 weeks for follow up on hypertension, diabetes, and cholesterol. This note was constructed using voice recognition software. While every effort has been made to ensure accuracy and corduroy cutting supervisor, still areas may have been included sometimes these areas may affect the content or meeting of the given symptoms. Total time spent caring for the patient today was 40 minutes. This includes time spent before the visit reviewing the chart, time spent during the visit, and time spent after the visit and documentation. Orders: Orders Lipid Panel Today Z00.00 - Encounter for general adult medical examination without abnormal findings Referrals Endocrinology Referral E11.65 - Type 2 diabetes mellitus with hyperglycemia [facility] Referral E11.65 - Type 2 diabetes mellitus with hyperglycemia, I63.9 - Cerebral infarction, unspecified Psychiatry Outpatient Consultation Service F41.1 - Generalized anxiety disorder Medications: New lancets (OneTouch Delica Plus Lancet) As directed 100 ea 2RF rosuvastatin 20 mg PO DAILY 30 tabs 2RF empagliflozin (Jardiance) 10 mg PO DAILY 30 tabs 2RF blood-glucose meter (OneTouch Ultra2 Meter) As directed 1 ea 0RF blood sugar diagnostic (OneTouch Ultra Test strips) As directed 50 ea 2RF Refilled diclofenac sodium 1% (Voltaren Arthritis Pain) apply to single knee, ankle, foot; for foot includes sole/toes/top of foot 4 grams topical QID 100 grams 11RF M19.90 - Unspecified osteoarthritis, unspecified site tiotropium bromide 2.5 mcg/actuation (Spiriva Respimat) 2 puffs inhalation QAM 30 days 4 grams 6RF J44.9 - Chronic obstructive pulmonary disease, unspecified aspirin (Adult Low Dose Aspirin) 81 mg PO DAILY 30 tabs 0RF I63.9 - Cerebral infarction, unspecified dulaglutide (Trulicity) 0.75 mg (0.5 mL) subcut QWEEK 2 mL 2RF E11.65 - Type 2 diabetes mellitus with hyperglycemia mometasone-formoterol 200-5 mcg/actuation (Dulera) 2 puffs inhalation BID 13 grams 11RF J44.9 - Chronic obstructive pulmonary disease, unspecified omeprazole 20 mg PO DAILY 90 days 90 caps 2RF K21.9 - Gastro-esophageal reflux disease without esophagitis Discontinued cyclobenzaprine Discontinued Reason: Patient no longer taking 7.5 mg PO TID PRN 14 tabs 0RF muscle spasm simvastatin Discontinued Reason: Patient no longer taking 40 mg PO DAILY 90 days 90 tabs 1RF I10 - Essential (primary) hypertension sertraline Discontinued Reason: Patient no longer taking 100 mg PO BEDTIME 90 days 90 tabs 0RF F41.1 - Generalized anxiety disorder Coding Level of Care Code Est Pt Level 4 (58697) Diagnoses GERD (gastroesophageal reflux disease) K21.9 Hypercholesterolemia E78.00 Tobacco abuse Z72.0 COPD (chronic obstructive pulmonary disease) J44.9 Generalized anxiety disorder F41.1 Hypertension I10 Type 2 diabetes mellitus with hyperglycemia E11.65 Fatty liver K76.0 CVA (cerebral vascular accident) I63.9 Obesity (BMI 30-39.9) E66.9 Additional Codes TAMIE-7 Assessment Billing - TAMIE-7 Assessment Tool: TAMIE-7 Assessment [id number] ([id number])
== END 2024-05-05 14:35 | disposition home or self-care (01) ==
PROVIDERS: PCP Internal Medicine
DX: J44.9 Chronic obstructive pulmonary disease, unspecified (principal); E11.65 Type 2 diabetes mellitus with hyperglycemia; Z68.37 Body mass index [BMI] 37.0-37.9, adult; E66.9 Obesity, unspecified; K21.9 Gastro-esophageal reflux disease without esophagitis; Z86.73 Personal history of transient ischemic attack (TIA), and cerebral infarction without residual deficits; E78.00 Pure hypercholesterolemia, unspecified; F17.210 Nicotine dependence, cigarettes, uncomplicated; F41.1 Generalized anxiety disorder; I10 Essential (primary) hypertension; K76.0 Fatty (change of) liver, not elsewhere classified
CPT/HCPCS: 99214

== ENCOUNTER 2024-05-11 13:02 | Outpatient (AMB) | payer OTHER, SELFPAY ==
--- NOTE | 2024-05-11 13:04 | A.OFFVIS_ITS ---
Vital Signs 05/11/24 13:06 Height 5 ft 11 in Weight 262 lb 5.601 oz BMI 36.6 BP 148/88 H Blood Pressure Location Rt brachial Position Sitting Pulse 101 H Pulse Source Pulse Oximeter Intake Visit Reasons: T2DM Intake Note: Patient presents today to re-establish treatment for Type 2 Diabetes Mellitus: Last Diabetic eye exam was on: DUE Last Podiatry exam was on: Does not see a Supervisor [place] Most recent HbA1c: 11.8%, 04/21/2024 Random Glucose- 423 mg/dL, Today 13:13 PM Alumni Relations Coordinator Required: No Accompanied by: Self / Same As Patient Allergies soybean Allergy (Mild, Verified 05/11/24 13:06) hives No Known Drug Allergies Allergy (Unknown, Verified 05/11/24 13:06) none seasonal Allergy (Mild, Uncoded 05/11/24 13:06) congestion Medication List - Last Reconciled 05/11/24 by Alice Dong PA-C albuterol sulfate 90 mcg/actuation (Proventil HFA) 2 puffs inhalation Q4-6H PRN aspirin (Adult Low Dose Aspirin) 81 mg PO DAILY blood sugar diagnostic (OneTouch Ultra Test strips) As directed blood-glucose meter (OneTouch Ultra2 Meter) As directed [CANE As directed] clotrimazole 1% 1 appl topical BID 4 weeks diclofenac sodium 1% (Voltaren Arthritis Pain) 4 grams topical QID dulaglutide (Trulicity) 0.75 mg (0.5 mL) subcut QWEEK empagliflozin (Jardiance) 10 mg PO DAILY lancets ([employer]Touch Delica Plus Lancet) As directed lisinopril-hydrochlorothiazide 10-12.5 mg 1 tab PO DAILY miconazole nitrate 2% (Zeasorb AF) 1 appl topical BID mometasone-formoterol 200-5 mcg/actuation (Dulera) 2 puffs inhalation BID omeprazole 20 mg PO DAILY 90 days peg 3350-electrolytes 236-22.74-6.74 -5.86 gram (Golytely) 240 mL PO Q10M 1 day rosuvastatin 20 mg PO DAILY tiotropium bromide 2.5 mcg/actuation (Spiriva Respimat) 2 puffs inhalation QAM 30 days trazodone 150 mg PO BEDTIME PRN 90 days HPI HPI T2DM: Details: Patient is a 58-year-old male with a significant past medical history substance abuse, prior CT, prior CVA, fatty liver, uncontrolled type 2 diabetes, hypertension, hyperlipidemia, COPD, tobacco use, EDUARDO on CPAP, obesity and GERD presenting today for a follow-up regarding his diabetes. Endo: His last A1c is 11.8. He was 1st diagnosed with diabetes last week per pt. He is currently on Trulicity 0.75 mg weekly, Jardiance 10 mg. He states he just started his meds 4 days ago. He states that he was diagnosed prediabetic last year that this was very shortened to his blood sugar today in the office is 430. He states he does not want to wait here for insulin and has no symptoms. He states over the last 2 months he has noticed some increased thirst. He does not get blood sugars because he does not have a glucometer. He has a friend and states that she has been checking his blood sugars the lowest was 342. He denies any family history type 2 diabetes or diabetes in general.. He has not had diabetic Education. CV: Blood pressure today in the office is 148/80. He is currently on lisinopril/hydrochlorothiazide 10/12.5 mg. He just turned this medication couple days ago. His cholesterol is managed with Crestor 20 mg. His last cholesterol was elevated but he was started on this medication and has plans to increase this medication at the 6 week follow-up with PCP. FORMERLY [facility], [facility] Medical History Opioid use disorder Cervical pain (neck) LFT elevation Impaired fasting blood sugar Numbness of right hand Sexually transmitted disease exposure Polysubstance abuse Osteoarthritis COPD (chronic obstructive pulmonary disease) Peripheral vascular disease History of renal calculi Anxiety and depression Tobacco abuse Insomnia Obesity (BMI 30-39.9) EDUARDO (obstructive sleep apnea) Hypercholesterolemia Vitamin D deficiency Surgical History History of extraction of renal calculus History of repair of rotator cuff Family History Father Medical history unknown Mother Seizure CVD (cerebrovascular disease) Hypertension Mental health disorder Brother Hypertension Diabetes Asthma Substance use disorder CVD (cerebrovascular disease) Son Murder Maternal Aunt Schizophrenia Social History Housing: Other Alcohol intake: current Alcohol intake frequency: a few times a month Patient Tobacco Use Status: Current everyday Tobacco user Tobacco use type: Cigarette Cigarette Packs Per Day: 1 Cigarettes Per Day: 8 e-Cigarette/Vaping Use: Never Used Second Hand Smoke Exposure: Yes service: No Current occupational status: unemployed Cognitive needs: No Hearing needs: No Vision needs: Yes Physical Exam Const Orientation/consciousness: patient oriented x3 Neck Neck: Yes no lymphadenopathy Thyroid: Thyroid normal Carotids: no bruits Resp Auscultation: clear to auscultation bilaterally Cardio Rate: regular rate Rhythm: regular rhythm Heart sounds: S1 normal heart sound present and S2 normal heart sound present Peripheral pulses: dorsalis pedis present Neuro General: patient oriented x3 and gait normal Extrem Other: Monofilament sensation intact bilaterally. Vibratory sensation intact bilaterally. Skin intact. General: Yes normal to inspection Results Reviewed Results Reviewed: Laboratory Tests 04/21/24 08:41 Hemoglobin A1c % 11.8 H AST 25 ALT 32 Triglycerides 255 H Cholesterol 254 H LDL Cholesterol, Calc 173 H HDL Cholesterol 30 L Assessment & Plan Assessment & Plan (1) Uncontrolled type 2 diabetes mellitus with hyperglycemia, with long-term current use of insulin: Code(s): E11.65 - Type 2 diabetes mellitus with hyperglycemia; Z79.4 - group home (cur rent) use of insulin Category: Medical Plan: Spent 75 min in [id number] time today discussing the pathophysiology of diabetes. Antibody testing ordered. He does not have a family history of diabetes. Will start patient on Lantus. We discussed signs and symptoms of hyper and hypoglycemia that would require emergent medical treatment. Discussed how to correct low blood sugars. Rule of 15 seconds discussed. I did also give him multiple handouts today. I will start him on glipizide and he will continue with the Jardiance as he denies any used infections or complications and will continue with the Trulicity. No nausea or vomiting with this. Discussed the increased risk of pancreatitis and advised him to watch his fatty food intake as his cholesterol is also elevated. I have ordered him a glucometer, lancets and strips. Freestyle Gael 3 ordered. He will call us when he gets this and we will help him set this up. I have referred him to diabetic Education. I spent extensive time today discussing diet, exercising carbohydrates in particular. We reviewed complications associated with diabetes such as kidney disease, blindness, increased risk of amputations, he has already had a stroke and asthma we discussed the risk of that. We also reviewed that his kidney function is impaired. Offered insulin in office today as blood sugars 430 but he refuses. States that he is asymptomatic and denies any abdominal pain, vision changes, feeling diaphoretic, chest pain, shortness of breath or headache. He does not have time to wait to have insulin administered and monitored. He is again aware of the risks with hyperglycemia. (2) Hypertension: Code(s): I10 - Essential (primary) hypertension Category: Medical Plan: He has a short-term follow-up arranged with his PCP in did review that his blood pressure is elevated today above goal. He has not yet picked up his blood pressure cuff but will monitor this at home. Orders: Orders C Peptide Today E11.65 - Type 2 diabetes mellitus with hyperglycemia, Z79.4 - long term care phlebotomist (current) use of insulin Glutamic acid decarboxylase Ab Today E11.65 - Type 2 diabetes mellitus with hyperglycemia, Z79.4 - group home (current) use of insulin Islet Cell Antibody Scrn/Titer Today E11.65 - Type 2 diabetes mellitus with hyperglycemia, Z79.4 - group home (current) use of insulin Referrals Diabetes Education Referral E11.65 - Type 2 diabetes mellitus with hyperglycemia, Z79.4 - long term care phlebotomist (current) use of insulin Medications: New blood-glucose meter (FreeStyle Lite Meter kit) Use daily As directed to check blood sugars 1 ea 0RF E11.22 - Type 2 diabetes mellitus with diabetic chronic kidney disease, E11.9 - Type 2 diabetes mellitus without complications, Z79.4 - long term care phlebotomist (current) use of insulin blood-glucose meter,continuous (FreeStyle Gael 3 [place]) Use daily As directed to monitor blood glucose 1 ea 0RF blood-glucose sensor (FreeStyle Gael 3 Sensor device) Apply every 14 days As directed to monitor blood glucose 2 ea 11RF E11.9 - Type 2 diabetes mellitus without complications, Z79.4 - group home (current) use of insulin lancets (FreeStyle Lancets) use daily as directed to check blood glucose 100 ea 3RF insulin glargine (Lantus Solostar U-100 Insulin) 10 units (0.1 mL) subcut QAM 30 days 3 mL 2RF blood sugar diagnostic (FreeStyle Lite Strips) Use daily As directed to check blood glucose 100 ea 3RF E11.65 - Type 2 diabetes mellitus with hyperglycemia, Z79.4 - long term care phlebotomist (current) use of insulin glipizide ER 5 mg PO DAILY 90 tabs 0RF Discontinued blood-glucose meter (OneTouch Ultra2 Meter) Discontinued Reason: Doctor's Order As directed 1 ea 0RF blood sugar diagnostic (OneTouch Ultra Test strips) Discontinued Reason: Doctor's Order As directed 50 ea 2RF Coding Level of Care Code New Pt Level 5 (75300) Diagnoses Uncontrolled type 2 diabetes mellitus with hyperglycemia, with long-term current use of insulin E11.65; Z79.4 Hypertension I10
[2024-05-11 13:06] VITALS: BP 148/88; PULSE 101; BMI 36.6
[2024-05-11 13:16] LABS: Glucose, Whole Blood 423 mg/dL (60-115)
== END 2024-05-11 13:37 | disposition home or self-care (01) ==
PROVIDERS: PCP Internal Medicine; Visit Provider Physician Assistant
DX: E11.65 Type 2 diabetes mellitus with hyperglycemia (principal); Z79.4 Long term (current) use of insulin; I10 Essential (primary) hypertension
CPT/HCPCS: 99205

== ENCOUNTER → 2024-05-11 13:02 | Outpatient (BNVA) | payer OTHER, SELFPAY | PROVIDERS: PCP Internal Medicine; Visit Provider Physician Assistant | DX: E11.65 Type 2 diabetes mellitus with hyperglycemia (principal); Z79.4 Long term (current) use of insulin; I10 Essential (primary) hypertension | CPT/HCPCS: 82947; 99202 ==

== ENCOUNTER 2024-05-26 14:09 | Outpatient (AMB) | payer OTHER, SELFPAY ==
--- NOTE | 2024-05-26 14:10 | A.OFFPSYCH_ITS ---
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 Required: Yes Allergies soybean Allergy (Mild, Verified 05/11/24 13:06) hives No Known Drug Allergies Allergy (Unknown, Verified 05/11/24 13:06) none seasonal Allergy (Mild, Uncoded 05/11/24 13:06) congestion Medication List - Last Reconciled 05/26/24 by Milvia Tirado APRN albuterol sulfate 90 mcg/actuation (Proventil HFA) 2 puffs inhalation Q4-6H PRN aspirin (Adult Low Dose Aspirin) 81 mg PO DAILY blood sugar diagnostic (FreeStyle Lite Strips) Use daily As directed to check blood glucose blood-glucose meter (FreeStyle Lite Meter kit) Use daily As directed to check blood sugars blood-glucose meter,continuous (FreeStyle Gael 3 [place]) Use daily As directed to monitor blood glucose blood-glucose sensor (FreeStyle Gael 3 Sensor device) Apply every 14 days As directed to monitor blood glucose [CANE As directed] clotrimazole 1% 1 appl topical BID 4 weeks diclofenac sodium 1% (Voltaren Arthritis Pain) 4 grams topical QID dulaglutide (Trulicity) 0.75 mg (0.5 mL) subcut QWEEK empagliflozin (Jardiance) 10 mg PO DAILY glipizide ER 5 mg PO DAILY insulin glargine (Lantus Solostar U-100 Insulin) 10 units (0.1 mL) subcut QAM 30 days lancets (OneTouch Delica Plus Lancet) As directed lancets (FreeStyle Lancets) use daily as directed to check blood glucose lisinopril-hydrochlorothiazide 10-12.5 mg 1 tab PO DAILY miconazole nitrate 2% (Zeasorb AF) 1 appl topical BID mometasone-formoterol 200-5 mcg/actuation (Dulera) 2 puffs inhalation BID omeprazole 20 mg PO DAILY 90 days peg 3350-electrolytes 236-22.74-6.74 -5.86 gram (Golytely) 240 mL PO Q10M 1 day pen needle, diabetic (BD Ultra-Fine Short Pen Needle) Use daily As directed to administer insulin rosuvastatin 20 mg PO DAILY tiotropium bromide 2.5 mcg/actuation (Spiriva Respimat) 2 puffs inhalation QAM 30 days trazodone 150 mg PO BEDTIME PRN 90 days HPI- Psychiatric Chief Complaint: consultation Intake Note: 58 yo male referred by PCP for evaluation of depression; pt reports depression for many years; his son was murdered at the age of 21 in 2008. he says he has not been okay since; he reports heahs been in and out of custodial since then; He has been out of custodial since 2020 and participated in the after incarceration program in [place] but it is too far to travel now and he lives in [place]. He has a new dx of diabetes that he says has been hard to manage. He was on zoloft and trazodone in past and he sayss they worked well for his depression; he denies manic episode; he denies SI or HI. He has a friend who helps him but he would also like MATHEMATICS LECTURER and [facility] services which he says are being worked on. HPI Narrative: 58-year-old male referred by PCP for depression. Pt has history of diabetes mellitus, hypertension, generalized anxiety disorder, COPD, hypercho lesterolemia, and CVA. In review of the notes, patient is followed by Cardiology November 2023 for cardiovascular risk stratification prior to colonoscopy and suggested echocardiogram and myocardial perfusion study.? Also recommended starting on high-intensity statin and tight blood pressure and diabetic management.? Patient was also seen by pulmonology October 2023 recommended sleep study and echocardiogram enrolled in annual lung cancer screening. Patient states that he has been overwhelmed with his health lately and has been not following up with recommended appointments. He has been without his daily medications for about 2-3 months now. Two weeks ago he started monitoring his blood sugar and found that his values were consistently over 500. He has been without treatment for his chronic diseases for several months and has been starting to notice them out of control. He has been having shortness of breath without his inhalers for COPD. He states he has a lot of anxiety and depression surrounding his current health and finds it hard to take care of himself. He also mentions he has a hard time managing his medications himself. Past Psychiatric History: tx outpt 2020 zoloft and trazodone with good results; No IPLOC Subjective Subjective Subjective Medication Compliance: Yes Side effects from medications: No Review of Systems Medical Review of Systems: unchanged Mental Status Exam Mental Status Exam Patient Appearance: Well Grooomed and Appropriate Patient Orientation: Person, Place, Time and Situation Level of Consciousness: Awake Patient Behavior: Appropriate Mood Description: Flat and Sad Affect Description: Flat and Sad Patient Cognition Impaired: No Ability to Follow Directions: Fair Speech Pattern: Slurred (slightly hx CVA) Memory Description: Intact Delusions: Not Present Thought Process: Intact and Goal Oriented Thought Content: positive for Intact, positive for [place] and positive for Goal Oriented Judgement: Fair Assessment and Plan Assessment & Plan (1) Major depressive disorder, recurrent, moderate: Status: Acute Code(s): F33.1 - Major depressive disorder, recurrent, moderate (2) Cocaine abuse: Status: Acute Code(s): F14.10 - Cocaine abuse, uncomplicated Medications: New trazodone 100 mg PO BEDTIME PRN 30 tabs 1RF sleep sertraline 25 mg PO BEDTIME 30 tabs 2RF Discontinued trazodone Discontinued Reason: Doctor's Order 150 mg PO BEDTIME 90 days PRN 90 tabs 0RF insomnia F41.1 - Generalized anxiety disorder Orders: Referrals Addiction Medicine Referral F14.10 - Cocaine abuse, uncomplicated, F33.1 - Major depressive disorder, recurrent, moderate Counseling and coordination of Care Pt. Self Management counseling: Maintenance-social rhythm, Mod caffeine/ETOH intake, Sleep hygiene, Behavior activation and General coping skills Medication management counseling: Effectiveness, Side effects, Dosing range, Duration, Drug interaction and Adherence Diagnosis and Prognosis Counseling: Accuracy of diagnosis, Prognosis over time, Impact of diagnosis on life functions, Impact of family relationship, Problematic behaviors secondary to diagnosis and Adequacy of current interventions Details: I spent [] minutes reviewing the record, seeing the patient and documenting in the medical record. Counseling provided to the patient/caregiver as outlined below. Addressed patient/caregiver concerns regarding current medication regime including effective adherence. Addressed patient/caregiver concerns regarding diagnosis and prognosis including accuracy of diagnosis, prognosis over time, impact of diagnosis. Addressed patient/caregiver concerns regarding impact of recent stressors. FORMERLY [facility] Medical History Opioid use disorder Cervical pain (neck) LFT elevation Impaired fasting blood sugar Numbness of right hand Sexually transmitted disease exposure Polysubstance abuse Osteoarthritis COPD (chronic obstructive pulmonary disease) Peripheral vascular disease History of renal calculi Anxiety and depression Tobacco abuse Insomnia Obesity (BMI 30-39.9) EDUARDO (obstructive sleep apnea) Hypercholesterolemia Vitamin D deficiency Surgical History History of extraction of renal calculus History of repair of rotator cuff Family History Father Medical history unknown Mother Seizure CVD (cerebrovascular disease) Hypertension Mental health disorder Brother Hypertension Diabetes Asthma Substance use disorder CVD (cerebrovascular disease) Son Murder Maternal Aunt Schizophrenia Social History Housing: Other Alcohol intake: current Alcohol intake frequency: a few times a month Patient Tobacco Use Status: Current everyday Tobacco user Tobacco use type: Cigarette Cigarette Packs Per Day: 1 Cigarettes Per Day: 8 e-Cigarette/Vaping Use: Never Used Second Hand Smoke Exposure: Yes service: No Current occupational status: unemployed Cognitive needs: No Hearing needs: No Vision needs: Yes Social History: single male lives with mother; has 4 children 1 son ; estranged from 2 dtrs. close to one dtr. Substance History: currently uses cocaine episodically- has never tried to quit Trauma History: yes Coding Level of Care Code Est Pt Level 4 (00364) Diagnoses Major depressive disorder, recurrent, moderate F33.1 Cocaine abuse F14.10
== END 2024-05-26 14:35 | disposition home or self-care (01) ==
LOC: HO.HOP 14:09
PROVIDERS: PCP Internal Medicine; Visit Provider Clinical Nurse Specialist Psychiatric/Mental Health
DX: F33.1 Major depressive disorder, recurrent, moderate (principal); F14.10 Cocaine abuse, uncomplicated
CPT/HCPCS: 99214

== ENCOUNTER → 2024-05-26 14:09 | Outpatient (BNVA) | payer OTHER, SELFPAY | PROVIDERS: PCP Internal Medicine; Visit Provider Clinical Nurse Specialist Psychiatric/Mental Health | DX: F33.1 Major depressive disorder, recurrent, moderate (principal); F14.10 Cocaine abuse, uncomplicated | CPT/HCPCS: 99212 ==

== ENCOUNTER 2024-05-27 10:01 | Outpatient (REF) | payer OTHER, SELFPAY ==
[2024-05-27 11:12] LABS: Cholesterol 154 mg/dL (<200); HDL Cholesterol 35 mg/dL (>40); LDL Cholesterol Calculated 86 mg/dL (<100); Triglycerides 168 mg/dL (<150)
[2024-05-27 11:57] LABS: Creatinine Urine 101.31 mg/dL
[2024-05-28 18:19] LABS: C Peptide 6.48 ng/mL (0.80-3.85)
[2024-05-31 21:58] LABS: Glutamic acid decarboxylase Ab <5 IU/mL (<5)
[2024-06-06 10:28] LABS: Islet Cell Antibody Screen NEGATIVE (NEGATIVE)
== END 2024-05-27 10:02 | disposition home or self-care (01) ==
LOC: HO.LAB 10:01
PROVIDERS: Internal Medicine; PCP Physician Assistant; Visit Provider Physician Assistant
DX: Z00.00 Encounter for general adult medical examination without abnormal findings (principal); E11.65 Type 2 diabetes mellitus with hyperglycemia; Z79.4 Long term (current) use of insulin
CPT/HCPCS: 36415; 80061; 82570; 84681; 86341

== ENCOUNTER 2024-06-01 13:36 | Outpatient (AMB) | payer OTHER, SELFPAY ==
--- NOTE | 2024-06-01 13:40 | A.OFFVIS_ITS ---
Vital Signs 06/01/24 13:44 Height 5 ft 11 in Weight 261 lb 3.964 oz BMI 36.4 BP 138/72 Blood Pressure Location Rt brachial Position Sitting Pulse 93 Pulse Source Pulse Oximeter Intake Visit Reasons: DM von f/u Intake Note: Patient present today to follow up on Type 2 Diabetes Mellitus. Patient reports he is currently not taking Lantus due to fear of needles. 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 Required: No Accompanied by: Self / Same As Patient Allergies soybean Allergy (Mild, Verified 06/01/24 13:45) hives No Known Drug Allergies Allergy (Unknown, Verified 06/01/24 13:45) none seasonal Allergy (Mild, Uncoded 06/01/24 13:45) congestion Medication List - Last Reconciled 06/01/24 by Ricardo Swain MD albuterol sulfate 90 mcg/actuation (Proventil HFA) 2 puffs inhalation Q4-6H PRN aspirin (Adult Low Dose Aspirin) 81 mg PO DAILY blood pressure monitor (Blood Pressure Kit) As directed blood sugar diagnostic (FreeStyle Lite Strips) Use daily As directed to check blood glucose blood-glucose meter (FreeStyle Lite Meter kit) Use daily As directed to check blood sugars blood-glucose meter,continuous (FreeStyle Gael 3 [place]) Use daily As directed to monitor blood glucose blood-glucose sensor (FreeStyle Gael 3 Sensor device) Apply every 14 days As directed to monitor blood glucose [CANE As directed] clotrimazole 1% 1 appl topical BID 4 weeks diclofenac sodium 1% (Voltaren Arthritis Pain) 4 grams topical QID dulaglutide (Trulicity) 0.75 mg (0.5 mL) subcut QWEEK empagliflozin (Jardiance) 10 mg PO DAILY glipizide ER 5 mg PO DAILY insulin glargine (Lantus Solostar U-100 Insulin) 10 units (0.1 mL) subcut QAM 30 days lancets ([employer]Touch Delica Plus Lancet) As directed lancets (FreeStyle Lancets) use daily as directed to check blood glucose lisinopril-hydrochlorothiazide 10-12.5 mg 1 tab PO DAILY miconazole nitrate 2% (Zeasorb AF) 1 appl topical BID mometasone-formoterol 200-5 mcg/actuation (Dulera) 2 puffs inhalation BID omeprazole 20 mg PO DAILY 90 days peg 3350-electrolytes 236-22.74-6.74 -5.86 gram (Golytely) 240 mL PO Q10M 1 day pen needle, diabetic (BD Ultra-Fine Short Pen Needle) Use daily As directed to administer insulin rosuvastatin 20 mg PO DAILY sertraline 25 mg PO BEDTIME tiotropium bromide 2.5 mcg/actuation (Spiriva Respimat) 2 puffs inhalation QAM 30 days trazodone 100 mg PO BEDTIME PRN HPI Comments Details: Patient is a 58-year-old male with a significant past medical history substance abuse, prior [place], prior CVA, fatty liver, uncontrolled type 2 diabetes, hypertension, hyperlipidemia, COPD, tobacco use, EDUARDO on CPAP, obesity and GERD presenting today for a follow-up regarding his diabetes. The patient last saw or YEE Byers on 05/11/2024 Endo: He was 1st diagnosed with diabetes last week per pt. He is currently on Trulicity 0.75 mg weekly, Jardiance 10 mg not taking . Glipizide 5 mg QD Lantus 10 units not taking . . He states over the last 2 months he has noticed some increased thirst. He was prescribed Gael 3 last visit Unfortunately, the patient did not bring his Gael, glucometer or log book to the follow-up visit He denies any episodes of hypoglycemia Last ophthalmologic visit was yrs ago He denies any family history type 2 diabetes or diabetes in general.. He has not had diabetic Educatio [facility] Medical History Opioid use disorder Cervical pain (neck) LFT elevation Impaired fasting blood sugar Numbness of right hand Sexually transmitted disease exposure Polysubstance abuse Osteoarthritis COPD (chronic obstructive pulmonary disease) Peripheral vascular disease History of renal calculi Anxiety and depression Tobacco abuse Insomnia Obesity (BMI 30-39.9) EDUARDO (obstructive sleep apnea) Hypercholesterolemia Vitamin D deficiency Surgical History History of extraction of renal calculus History of repair of rotator cuff Family History Father Medical history unknown Mother Seizure CVD (cerebrovascular disease) Hypertension Mental health disorder Brother Hypertension Diabetes Asthma Substance use disorder CVD (cerebrovascular disease) Son Murder Maternal Aunt Schizophrenia Social History Housing: Other Alcohol intake: current Alcohol intake frequency: a few times a month Patient Tobacco Use Status: Current everyday Tobacco user Tobacco use type: Cigarette Cigarette Packs Per Day: 1 Cigarettes Per Day: 8 e-Cigarette/Vaping Use: Never Used Second Hand Smoke Exposure: Yes service: No Current occupational status: unemployed Cognitive needs: No Hearing needs: No Vision needs: Yes Physical Exam Vital Signs: BMI result Body Mass Index 36.4 Absence of Cushingoid features. Absence of acromegalic features. Neck exam reveals nl size thyroid about 15 gms. No thyroid nodules palpable. No carotid bruits present. Lungs CTA. Heart S1 S2, Reg R/R. No M/R/ G. Skin exam reveals absence of vitiligo or acanthosis nigricans. Abdominal exam reveals Soft NT/ND with NA BS. No organomegaly present. Neck Other: . Extrem Other: pt refused foot examination Assessment & Plan Assessment & Plan (1) Type 2 diabetes mellitus with hyperglycemia: Code(s): E11.65 - Type 2 diabetes mellitus with hyperglycemia Category: Medical Plan: This is a 58-year-old male with a history of type 2 diabetes treated with Trulicity, Jardiance, glipizide and basal insulin with poor glycemic control and known macrovascular macrovascular complications namely prior [place], prior CVA, fatty and CKD Plan is to have the patient check his point of cares before and after meals and preferably use a continuous sensor namely Gael. Could not make any changes to the patient's regimen because did not have any blood sugars available. Went over extensive with the patient the correlation of poor glycemic control to development of progression of complications. Also suggested patient she security coordinator immigration law specialist. He will follow up with YEE Byers in 4 weeks Orders: Referrals Nutrition/Dietitian Referral E11.65 - Type 2 diabetes mellitus with hyperglycemia Coding Level of Care Code Est Pt Level 4 (12952) Complex EM visit Add On G2211 Diagnoses Type 2 diabetes mellitus with hyperglycemia E11.65
[2024-06-01 13:44] VITALS: BP 138/72; PULSE 93; BMI 36.4
[2024-06-01 13:58] LABS: Glucose, Whole Blood 314 mg/dL (60-115)
== END 2024-06-01 14:15 | disposition home or self-care (01) ==
PROVIDERS: PCP Physician Assistant; Visit Provider Internal Medicine Endocrinology, Diabetes & Metabolism
DX: E11.65 Type 2 diabetes mellitus with hyperglycemia (principal)
CPT/HCPCS: 99214; G2211

== ENCOUNTER → 2024-06-01 13:36 | Outpatient (BNVA) | payer OTHER, SELFPAY | PROVIDERS: PCP Physician Assistant; Visit Provider Internal Medicine Endocrinology, Diabetes & Metabolism | DX: E11.65 Type 2 diabetes mellitus with hyperglycemia (principal); E78.5 Hyperlipidemia, unspecified; Z86.73 Personal history of transient ischemic attack (TIA), and cerebral infarction without residual deficits; Z79.899 Other long term (current) drug therapy | CPT/HCPCS: 82947; 99212 ==

== ENCOUNTER 2024-06-16 14:27 | Outpatient (AMB) | payer OTHER, SELFPAY ==
[2024-06-16 14:28] VITALS: BP 132/80; PULSE 97; O2SAT 95; BMI 36.3
--- NOTE | 2024-06-16 14:28 | A.OFFPC_ITS ---
Vital Signs 06/16/24 14:28 Height 5 ft 11 in Weight 260 lb BMI 36.3 BP 132/80 Blood Pressure Location Lt brachial Position Sitting Pulse 97 Pulse Source Pulse Oximeter Pulse Oximetry (%) 95 Oxygen Delivery Method Room Air Intake Visit Reasons: 6 weeks follow up Bar Attendant Required: No Allergies soybean Allergy (Mild, Verified 06/16/24 14:29) hives No Known Drug Allergies Allergy (Unknown, Verified 06/16/24 14:29) none seasonal Allergy (Mild, Uncoded 06/16/24 14:29) congestion Medication List - Last Reconciled 06/16/24 by Janki Freire PA-C albuterol sulfate 90 mcg/actuation (Proventil HFA) 2 puffs inhalation Q4-6H PRN aspirin (Adult Low Dose Aspirin) 81 mg PO DAILY blood pressure monitor (Blood Pressure Kit) As directed blood sugar diagnostic (FreeStyle Lite Strips) Use daily As directed to check blood glucose blood-glucose meter (FreeStyle Lite Meter kit) Use daily As directed to check blood sugars blood-glucose meter,continuous (FreeStyle Gael 3 [place]) Use daily As directed to monitor blood glucose blood-glucose sensor (FreeStyle Gael 3 Sensor device) Apply every 14 days As directed to monitor blood glucose [CANE As directed] clotrimazole 1% 1 appl topical BID 4 weeks diclofenac sodium 1% (Voltaren Arthritis Pain) 4 grams topical QID dulaglutide (Trulicity) 0.75 mg (0.5 mL) subcut QWEEK empagliflozin (Jardiance) 10 mg PO DAILY glipizide ER 5 mg PO DAILY insulin glargine (Lantus Solostar U-100 Insulin) 10 units (0.1 mL) subcut QAM 30 days lancets (OneTouch Delica Plus Lancet) As directed lancets (FreeStyle Lancets) use daily as directed to check blood glucose lisinopril-hydrochlorothiazide 10-12.5 mg 1 tab PO DAILY miconazole nitrate 2% (Zeasorb AF) 1 appl topical BID mometasone-formoterol 200-5 mcg/actuation (Dulera) 2 puffs inhalation BID omeprazole 20 mg PO DAILY 90 days peg 3350-electrolytes 236-22.74-6.74 -5.86 gram (Golytely) 240 mL PO Q10M 1 day pen needle, diabetic (BD Ultra-Fine Short Pen Needle) Use daily As directed to administer insulin rosuvastatin 20 mg PO DAILY sertraline 25 mg PO BEDTIME tiotropium bromide 2.5 mcg/actuation (Spiriva Respimat) 2 puffs inhalation QAM 30 days trazodone 100 mg PO BEDTIME PRN Tobacco use date assessed: 05/05/24 Dental Screening Dental Screen Date: 05/05/24 HPI 6 weeks follow up HPI Details 58-year-old male with a significant past medical history substance abuse, prior NH, prior CVA, fatty liver, uncontrolled type 2 diabetes, hypertension, hyperlipidemia, COPD, tobacco use, EDUARDO on CPAP, obesity and GERD presenting today for a follow-up regarding his diabetes and Hypertension. In review of the notes, patient was seen by [facility] endocrinology 06/01/2024 no change to medication regimen and follow up in 4 weeks. Patient was seen by outpatient psych provider 05/28/2024 started on trazodone and sertraline and referred to addiction Medicine for cocaine abuse. Patient states he has been following with endocrinology in monitoring his blood sugars and we will soon have a new sensor. He has been doing well with the sertraline does mentioned has been helping with his depression and anxiety the trazodone has been helping with his sleep schedule. [facility] Medical History Opioid use disorder Cervical pain (neck) LFT elevation Impaired fasting blood sugar Numbness of right hand Sexually transmitted disease exposure Polysubstance abuse Osteoarthritis COPD (chronic obstructive pulmonary disease) Peripheral vascular disease History of renal calculi Anxiety and depression Tobacco abuse Insomnia Obesity (BMI 30-39.9) EDUARDO (obstructive sleep apnea) Hypercholesterolemia Vitamin D deficiency Surgical History History of extraction of renal calculus History of repair of rotator cuff Family History Father Medical history unknown Mother Seizure CVD (cerebrovascular disease) Hypertension Mental health disorder Brother Hypertension Diabetes Asthma Substance use disorder CVD (cerebrovascular disease) Son Murder Maternal Aunt Schizophrenia Social History Housing: Other Alcohol intake: current Alcohol intake frequency: a few times a month Patient Tobacco Use Status: Current everyday Tobacco user Tobacco use type: Cigarette Cigarette Packs Per Day: 1 Cigarettes Per Day: 8 e-Cigarette/Vaping Use: Never Used Second Hand Smoke Exposure: Yes service: No Current occupational status: unemployed Cognitive needs: No Hearing needs: No Vision needs: Yes Questionnaire Thrive Questionnaire Date Thrive assessed: 10/02/22 Are you currently unemployed and looking for a job?: No AUDIT C Alcohol Use Questionnaire (AUDIT-C) 1. How often do you have a drink containing alcohol?: 2-3 times a week 2. How many drinks containing alcohol do you have on a typical day when you are drinking?: 10 or more 3. How often do you have six or more drinks on one occasion?: Less than monthly Total Score: 8 TAMIE-7 AMB Questionnaire TAMIE-7 Date TAMIE - 7 assessed: 05/05/24 Source: Developed by Drs. Ricardo Love, Stephanie Javier, Yobany Victor and colleagues, with an educational ernestine from [employer]. Review of Systems Const Denies body aches and Denies fever(s) Eyes Reports no additional complaints ENT Reports no additional complaints Card Denies chest pain, Denies leg edema, Denies lightheadedness and Denies dyspnea Resp Denies dyspnea GI Reports no additional complaints Reports no additional complaints Musc Reports no additional complaints Skin/Breast Reports system reviewed and no additional complaints, except as documented Physical exam (Primary Care) Vital Signs: Last Vital Signs Pulse 97 06/16/24 14:28 BP 132/80 06/16/24 14:28 Pulse Ox 95 06/16/24 14:28 Oxygen Delivery Method Room Air 06/16/24 14:28 BMI result Body Mass Index 36.3 Tobacco/Smoking Status: Tobacco use Status Tobacco use date assessed 05/05/24 06/16/24 14:31 Patient Tobacco Use Status Current everyday Tobacco 06/16/24 14:31 Tobacco use type Cigarette 06/16/24 14:31 e-Cigarette/Vaping Use Never Used 06/16/24 14:31 Thrive Assessment: Date of Thrive Assessment Date Thrive assessed 10/02/22 06/16/24 14:31 Const General: cooperative, healthy appearing, comfortable and no acute distress Orientation/consciousness: patient oriented x3 HENMT Head: Yes normocephalic Ears: hearing grossly normal bilaterally General nose exam: Normal external nose present Eyes General: appearance normal, both eyes and all related structures Conjunctivae: conjunctivae normal Neck Neck: Yes full ROM and Yes no lymphadenopathy Resp Effort & Inspection: normal respiratory effort Auscultation: clear to auscultation bilaterally, no crackles, no rales, no rhonchi and no wheezes Cardio Rate: regular rate Rhythm: regular rhythm Skin General skin exam: no rashes or lesions noted Neuro General: patient oriented x3 Gait exam (Neuro): Normal gait present Extrem General: Yes normal to inspection, Yes full ROM and No edema Psych Affect: normal affect Attitude: cooperative Insight: Good insight present (Psych) Judgement: Good judgement present (Psych) Results AMB Hemoglobin A1c AMB Hemoglobin A1c 11.2 % Last Edit by VICENTE Thompson on 06/16/24 14:50 Assessment and Plan Assessment & Plan (1) Cocaine abuse: Code(s): F14.10 - Cocaine abuse, uncomplicated Plan: Referral placed for addiction medicine by outpatient psych facility. (2) Major depressive disorder, recurrent, moderate: Code(s): F33.1 - Major depressive disorder, recurrent, moderate Plan: Continue to follow with outpatient psych and continue on sertraline (3) Uncontrolled type 2 diabetes mellitus with hyperglycemia, with long-term cu rrent use of insulin: Code(s): E11.65 - Type 2 diabetes mellitus with hyperglycemia; Z79.4 - manager terminal (current) use of insulin Plan: Decrease the amount of carbohydrates such as pasta, bread, rice, and potatoes and limit the amount of sweets. Although fruits are generally healthy they should be eaten in moderation as they are still high in sugar. Hemoglobin A1c goal of less than 7%. A1c above 11% once again in the office today. Patient does mentioned he eats rice and potatoes often. Strongly advised patient to stay away from [facility] and is referred to nutrition by endocrinology. (4) Personal history of nicotine dependence: Code(s): Z87.891 - Personal history of nicotine dependence Plan: Declines nicotine replacement therapy at this time. Strongly advised to stop smoking! (5) Generalized anxiety disorder: Comment: [facility] [address] [facility], Weekly Code(s): F41.1 - Generalized anxiety disorder Plan: Continue to follow with outpatient psych and continue on sertraline. (6) GERD (gastroesophageal reflux disease): Code(s): K21.9 - Gastro-esophageal reflux disease without esophagitis Plan: Avoid trigger foods such as citrus, tomato products, soda, caffeine, spicy foods and other foods that may be irritating to your stomach. Avoid laying flat 3-4 hours after eating and elevate the head of the bed 30 degrees to prevent acid from moving into the esophagus. Continue on current medication. (7) Hypercholesterolemia: Code(s): E78.00 - Pure hypercholesterolemia, unspecified Plan: Avoid foods that are high in cholesterol such as red meat, fried foods, eggs and baked goods. Triglyceride goal of less than 150 and LDL goal of less than 70. Cholesterol elevated on last labs and we will repeat labs as he is unclear when he began taking the rosuvastatin. Continue on rosuvastatin 20 mg and can consider dose increase if cholesterol is elevated. (8) Hypertension: Code(s): I10 - Essential (primary) hypertension Plan: Continue on current blood pressure medication. Avoid salt intake and encourage healthy diet and regular exercise. Blood pressure at goal today 132/80. Plan This note was constructed using voice recognition software. While every effort has been made to ensure accuracy and reception centre manager, still areas may have been included sometimes these areas may affect the content or meeting of the given symptoms. Total time spent caring for the patient today was 30 minutes. This includes time spent before the visit reviewing the chart, time spent during the visit, and time spent after the visit and documentation. Orders: Orders AMB Hemoglobin A1c Today E11.65 - Type 2 diabetes mellitus with hyperglycemia Lipid Panel Today Z00.00 - Encounter for general adult medical examination without abnormal findings Coding Level of Care Code Est Pt Level 4 (60491) Diagnoses Cocaine abuse F14.10 Major depressive disorder, recurrent, moderate F33.1 Uncontrolled type 2 diabetes mellitus with hyperglycemia, with long-term current use of insulin E11.65; Z79.4 Personal history of nicotine dependence Z87.891 Generalized anxiety disorder F41.1 GERD (gastroesophageal reflux disease) K21.9 Hypercholesterolemia E78.00 Hypertension I10
== END 2024-06-16 14:57 | disposition home or self-care (01) ==
DX: F14.10 Cocaine abuse, uncomplicated (principal); F33.1 Major depressive disorder, recurrent, moderate; E11.65 Type 2 diabetes mellitus with hyperglycemia; Z79.4 Long term (current) use of insulin; Z87.891 Personal history of nicotine dependence; F41.1 Generalized anxiety disorder; K21.9 Gastro-esophageal reflux disease without esophagitis; E78.00 Pure hypercholesterolemia, unspecified; I10 Essential (primary) hypertension

== ENCOUNTER → 2024-06-16 14:27 | Outpatient (BNVA) | payer OTHER, SELFPAY | PROVIDERS: PCP Physician Assistant | DX: E11.65 Type 2 diabetes mellitus with hyperglycemia (principal); F14.10 Cocaine abuse, uncomplicated; F33.1 Major depressive disorder, recurrent, moderate; F41.1 Generalized anxiety disorder; K21.9 Gastro-esophageal reflux disease without esophagitis; E78.00 Pure hypercholesterolemia, unspecified; I10 Essential (primary) hypertension; Z79.4 Long term (current) use of insulin; Z87.891 Personal history of nicotine dependence | CPT/HCPCS: 83036; 99212 ==

== ENCOUNTER 2024-06-30 07:35 | Outpatient (AMB) | payer OTHER, SELFPAY ==
--- NOTE | 2024-06-30 08:11 | A.OFFVIS_ITS ---
Intake Intake Visit Reasons: DM-conf Mail Carrier And Clerk Required: No Accompanied by: Self / Same As Patient Allergies soybean Allergy (Mild, Verified 06/16/24 14:29) hives No Known Drug Allergies Allergy (Unknown, Verified 06/16/24 14:29) none seasonal Allergy (Mild, Uncoded 06/16/24 14:29) congestion HPI Comprehensive Diabetes Asmnt Most Recent Diabetes Results: Microalb/Creat Ratio 57.4 ug/mg cr (<30) H 04/21/24 Cholesterol 154 mg/dL (<200) 05/27/24 HDL Cholesterol 35 mg/dL (>40) L 05/27/24 Triglycerides 168 mg/dL (<150) H 05/27/24 Creatinine 1.96 mg/dL (0.5-1.4) H 04/21/24 Blood Urea Nitrogen 28 mg/dL (9-16) H 04/21/24 Sodium 133 mmol/L (135-145) L 04/21/24 Potassium 5.3 mmol/L (3.3-5.1) H 04/21/24 Chloride 101 mmol/L (96-108) 04/21/24 Carbon Dioxide 23 mmol/L (22-29) 04/21/24 Calcium 9.7 mg/dL (8.4-10.2) 04/21/24 AST 25 U/L (5-37) 04/21/24 ALT 32 U/L (0-40) 04/21/24 Total Protein 7.6 g/dL (6.5-8.0) 04/21/24 Albumin 4.2 g/dL (3.5-5.0) 04/21/24 [facility] Medical History Opioid use disorder Cervical pain (neck) LFT elevation Impaired fasting blood sugar Numbness of right hand Sexually transmitted disease exposure Polysubstance abuse Osteoarthritis COPD (chronic obstructive pulmonary disease) Peripheral vascular disease History of renal calculi Anxiety and depression Tobacco abuse Insomnia Obesity (BMI 30-39.9) EDUARDO (obstructive sleep apnea) Hypercholesterolemia Vitamin D deficiency Surgical History History of extraction of renal calculus History of repair of rotator cuff Family History Father Medical history unknown Mother Seizure CVD (cerebrovascular disease) Hypertension Mental health disorder Brother Hypertension Diabetes Asthma Substance use disorder CVD (cerebrovascular disease) Son Murder Maternal Aunt Schizophrenia Social History Housing: Other Alcohol intake: current Alcohol intake frequency: a few times a month Patient Tobacco Use Status: Current everyday Tobacco user Tobacco use type: Cigarette Cigarette Packs Per Day: 1 Cigarettes Per Day: 8 e-Cigarette/Vaping Use: Never Used Second Hand Smoke Exposure: Yes service: No Current occupational status: unemployed Cognitive needs: No Hearing needs: No Vision needs: Yes Assessment & Plan Assessment & Plan (1) Uncontrolled type 2 diabetes mellitus with hyperglycemia, with long-term current use of insulin: Code(s): E11.65 - Type 2 diabetes mellitus with hyperglycemia; Z79.4 - care home (current) use of insulin Plan: Patient at visit to set up an insert Gael 3 sensor Instructed patient sensors water proof you can shower, or swim do not submerge sensor in water for over 30 minutes Is sensor falls off cannot put back in you need to replace sensor, customer service number given to patient for sensor replacement Sensor placed on the Back of Left arm Patient left visit with sensor in warmup Reviewed how to interpret trend arrows Reminded patient that to check finger sticks if symptoms do not match sensor reading. Discussed lag time between finger stick and sensor data.? Instructed patient she should always keep blood glucometer for backup testing if needed Reviewed delay of CGM from fingersticks Reminded pt that if symptoms do not match sensor still needs to check fingersticks. What is Diabetes? Pathophysiology How the body produces and uses insulin Identify type of DM Risk factors Signs of Diabetes Brief overview of Diabetes Management Monitoring blood sugar Following a meal plan Regular exercise Maintaining a healthy weight Taking medication as needed Members of the care team (PCP, RN, MA, RD, CDE, bridge engineer) Blood glucose monitoring When/how often to test Target blood sugar ranges Introduction to Nutrition Importance of healthy diet in managing DM Diet is personalized to individual preference Review patient?s regular diet/food preferences Who prepares meals/does food shopping/ Dining out?/ Barriers? How diet effects glucose Eating 3 balanced meals a day with small, healthy snacks between meals Review food groups Carbohydrates: What is a carbohydrate/Which food/food groups are considered carbohydrates Effect of carbohydrates on blood glucose Portion sizes Reading food labels Basic carb counting (if applicable per nursing assessment) Plate method Meal planning Recommendations: Follow plate method, consistent carbs and read nutritional labels. Portions of this note were created using voice recognition software, please excuse any words or phrases that may have been misinterpreted. Patient Instructions: Patient instruction: CGM provides information on blood glucose control throughout the day, including hyperglycemia and hypoglycemia. ? Continue to mon itor blood glucose as instructed. Follow nutrition guidelines provided. Report any discomfort promptly to health care provider. ?Stay well-hydrated. You can bathe ,shower, swim and exercise while wearing the glucose sensor. Do not submerge glucose sensor in water for more than 30 minutes. Coding Level of Care Code Est Pt Level 1 (16328) Diagnoses Uncontrolled type 2 diabetes mellitus with hyperglycemia, with long-term current use of insulin E11.65; Z79.4
== END 2024-06-30 08:14 | disposition home or self-care (01) ==
PROVIDERS: Visit Provider Registered Nurse Diabetes Educator
DX: E11.65 Type 2 diabetes mellitus with hyperglycemia (principal); Z79.4 Long term (current) use of insulin

== ENCOUNTER → 2024-06-30 07:35 | Outpatient (BNVA) | payer OTHER, SELFPAY | PROVIDERS: Visit Provider Registered Nurse Diabetes Educator | DX: E11.65 Type 2 diabetes mellitus with hyperglycemia (principal); Z79.4 Long term (current) use of insulin | CPT/HCPCS: 99211 ==

== ENCOUNTER 2024-07-03 14:03 | Outpatient (AMB) | payer OTHER, SELFPAY ==
--- NOTE | 2024-07-03 14:19 | A.OFFVIS_ITS ---
Vital Signs 07/03/24 14:21 Height 5 ft 11 in Weight 275 lb 9.245 oz BMI 38.4 BP 110/72 Blood Pressure Location Rt brachial Position Sitting Pulse 93 Pulse Source Pulse Oximeter Intake Visit Reasons: DM/CONFIRMED Intake Note: Patient presents today for D2DE follow up visit. Last Diabetic Eye exam: 2 years ago Last Podiatry Visit: Doesn't have one Random Glucose: 166 mg/dl HgA1c: 11.2% Penology Professor Required: No Accompanied by: Self / Same As Patient Allergies soybean Allergy (Mild, Verified 07/03/24 14:25) hives No Known Drug Allergies Allergy (Unknown, Verified 07/03/24 14:25) none seasonal Allergy (Mild, Uncoded 07/03/24 14:25) congestion Medication List - Last Reconciled 07/03/24 by Alice Dong PA-C albuterol sulfate 90 mcg/actuation (Proventil HFA) 2 puffs inhalation Q4-6H PRN aspirin (Adult Low Dose Aspirin) 81 mg PO DAILY blood pressure monitor (Blood Pressure Kit) As directed blood sugar diagnostic (FreeStyle Lite Strips) Use daily As directed to check blood glucose blood-glucose meter (FreeStyle Lite Meter kit) Use daily As directed to check blood sugars blood-glucose meter,continuous (FreeStyle Gael 3 [place]) Use daily As directed to monitor blood glucose blood-glucose sensor (FreeStyle Gael 3 Sensor device) Apply every 14 days As directed to monitor blood glucose [CANE As directed] clotrimazole 1% 1 appl topical BID 4 weeks diclofenac sodium 1% (Voltaren Arthritis Pain) 4 grams topical QID dulaglutide (Trulicity) 1.5 mg (0.5 mL) subcut QWEEK glipizide ER 5 mg PO DAILY insulin glargine (Lantus Solostar U-100 Insulin) 14 units (0.14 mL) subcut QAM 30 days lancets (InaikaTouch Delica Plus Lancet) As directed lancets (FreeStyle Lancets) use daily as directed to check blood glucose lisinopril-hydrochlorothiazide 10-12.5 mg 1 tab PO DAILY miconazole nitrate 2% (Zeasorb AF) 1 appl topical BID mometasone-formoterol 200-5 mcg/actuation (Dulera) 2 puffs inhalation BID omeprazole 20 mg PO DAILY 90 days peg 3350-electrolytes 236-22.74-6.74 -5.86 gram (Golytely) 240 mL PO Q10M 1 day pen needle, diabetic (BD Ultra-Fine Short Pen Needle) Use daily As directed to administer insulin rosuvastatin 20 mg PO DAILY sertraline 25 mg PO BEDTIME tiotropium bromide 2.5 mcg/actuation (Spiriva Respimat) 2 puffs inhalation QAM 30 days trazodone 100 mg PO BEDTIME PRN HPI HPI DM/CONFIRMED: Details: Patient is a 58-year-old male with a significant past medical history substance abuse, prior [place], prior CVA, fatty liver, uncontrolled type 2 diabetes, hypertension, hyperlipidemia, COPD, tobacco use, EDUARDO on CPAP, obesity and GERD presenting today for a follow-up regarding his diabetes. The patient last saw or YEE Byers on 05/11/2024 Endo: His A1c was 11.2. He was 1st diagnosed with diabetes about a month ago.. He is currently on Trulicity 0.75 mg weekly,Glipizide 5 mg QD Lantus 10 units. -Jardiance was too expensive. He was prescribed Gael 3 last visit and the download today shows that he is in range 79 %, hyperglycemic 21%. He has only use this 6% of the time with an average glucose of 163 and a variability of 18. He states his current sensor has an error and he has been trying to call [employer] [facility] for a new sensor without any luck. He denies any episodes of hypoglycemia Last ophthalmologic visit was yrs ago diabetic education earlier this week. CV: Blood pressure today in the office is 110/72. He is currently on lisinopril/hydrochlorothiazide 10/12.5 mg. Compliant with Crestor 20 mg. COUNT INCLUDES THE [facility] Medical History Opioid use disorder Cervical pain (neck) LFT elevation Impaired fasting blood sugar Numbness of right hand Sexually transmitted disease exposure Polysubstance abuse Osteoarthritis COPD (chronic obstructive pulmonary disease) Peripheral vascular disease History of renal calculi Anxiety and depression Tobacco abuse Insomnia Obesity (BMI 30-39.9) EDUARDO (obstructive sleep apnea) Hypercholesterolemia Vitamin D deficiency Surgical History History of extraction of renal calculus History of repair of rotator cuff Family History Father Medical history unknown Mother Seizure CVD (cerebrovascular disease) Hypertension Mental health disorder Brother Hypertension Diabetes Asthma Substance use disorder CVD (cerebrovascular disease) Son Murder Maternal Aunt Schizophrenia Social History Housing: Other Alcohol intake: current Alcohol intake frequency: a few times a month Patient Tobacco Use Status: Current everyday Tobacco user Tobacco use type: Cigarette Cigarette Packs Per Day: 1 Cigarettes Per Day: 8 e-Cigarette/Vaping Use: Never Used Second Hand Smoke Exposure: Yes service: No Current occupational status: unemployed Cognitive needs: No Hearing needs: No Vision needs: Yes Physical Exam Const Orientation/consciousness: patient oriented x3 Neck Neck: Yes no lymphadenopathy Thyroid: Thyroid normal Carotids: no bruits Resp Auscultation: clear to auscultation bilaterally Cardio Rate: regular rate Rhythm: regular rhythm Heart sounds: S1 normal heart sound present and S2 normal heart sound present Peripheral pulses: dorsalis pedis present Neuro General: patient oriented x3 and gait normal Extrem Other: Monofilament sensation intact bilaterally. Vibratory sensation intact bilaterally. Skin intact. General: Yes normal to inspection Results Reviewed Results Reviewed: Laboratory Tests 04/21/24 05/11/24 05/27/24 08:41 13:12 10:20 Creatinine 1.96 H Estimated GFR 35 Glucose (Clinic) 423 H* Random Glucose 298 H Hgb A1c (Clinic) C-Peptide 6.48 H Islet Cell Ab Screen NEGATIVE Islet Cell Ab Titer TNP TAMIE Antibody <5 06/16/24 14:35 Creatinine Estimated GFR Glucose (Clinic) Random Glucose Hgb A1c (Clinic) 11.2 H C-Peptide Islet Cell Ab Screen Islet Cell Ab Titer TAMIE Antibody Assessment & Plan Assessment & Plan (1) Uncontrolled type 2 diabetes mellitus with hyperglycemia, with long-term current use of insulin: Code(s): E11.65 - Type 2 diabetes mellitus with hyperglycemia; Z79.4 - superintendent marine oil terminal (current) use of insulin Category: Medical Plan: I will increase the Trulicity. I have increased Lantus to 14 units. Freestyle Gael 3 provided today in the office. (2) CKD (chronic kidney disease) stage 3, GFR 30-59 ml/min: Code(s): N18.30 - Chronic kidney disease, stage 3 unspecified Category: Medical Qualifiers: Chronic kidney disease stage 3 subtype: stage 3b (GFR 30-44) Qualified Code(s): N18.32 - Chronic kidney disease, stage 3b Plan: Reviewed labs with patient. Referral to nephrology placed. Advised to avoid NSAIDs (3) Hypertension: Code(s): I10 - Essential (primary) hypertension Category: Medical Plan: Blood pressure WNL today. Continue current regimen. Orders: Referrals Nephrology Referral E11.65 - Type 2 diabetes mellitus with hyperglycemia, N18.32 - Chronic kidney disease, stage 3b, Z79.4 - superintendent marine oil terminal (current) use of insulin Medications: New dulaglutide (Trulicity) 1.5 mg (0.5 mL) subcut QWEEK 2 mL 4RF Changed From insulin glargine (Lantus Solostar U-100 Insulin) 10 units (0.1 mL) subcut QAM 30 days 3 mL 2RF To insulin glargine (Lantus Solostar U-100 Insulin) 14 units (0.14 mL) subcut QAM 30 days 4.2 mL 2RF Discontinued dulaglutide (Trulicity) Discontinued Reason: Doctor's Order 0.75 mg (0.5 mL) subcut QWEEK 2 mL 2RF E11.65 - Type 2 diabetes mellitus with hyperglycemia empagliflozin (Jardiance) Discontinued Reason: Doctor's Order 10 mg PO DAILY 30 tabs 2RF Coding Level of Care Code Est Pt Level 4 (86325) Complex EM visit Add On G2211 Diagnoses Uncontrolled type 2 diabetes mellitus with hyperglycemia, with long-term current use of insulin E11.65; Z79.4 Stage 3b chronic kidney disease N18.32 Chronic kidney disease stage 3 subtype: stage 3b (GFR 30-44) Hypertension I10
[2024-07-03 14:21] VITALS: BP 110/72; PULSE 93; BMI 38.4
[2024-07-03 14:33] LABS: Glucose, Whole Blood 166 mg/dL (60-115)
== END 2024-07-03 14:40 | disposition home or self-care (01) ==
PROVIDERS: PCP Physician Assistant; Visit Provider Physician Assistant
DX: E11.65 Type 2 diabetes mellitus with hyperglycemia (principal); Z79.4 Long term (current) use of insulin; N18.32 Chronic kidney disease, stage 3b; I10 Essential (primary) hypertension

== ENCOUNTER → 2024-07-03 14:03 | Outpatient (BNVA) | payer OTHER, SELFPAY | PROVIDERS: PCP Physician Assistant; Visit Provider Physician Assistant | DX: E11.65 Type 2 diabetes mellitus with hyperglycemia (principal); I12.9 Hypertensive chronic kidney disease with stage 1 through stage 4 chronic kidney disease, or unspecified chronic kidney disease; E11.22 Type 2 diabetes mellitus with diabetic chronic kidney disease; N18.32 Chronic kidney disease, stage 3b; Z79.4 Long term (current) use of insulin | CPT/HCPCS: 82947; 99212 ==

== ENCOUNTER 2024-07-08 14:02 | Outpatient (AMB) | payer OTHER, SELFPAY ==
[2024-07-08 11:34] VITALS: BMI 38.5
--- NOTE | 2024-07-08 14:15 | A.OFFVIS_ITS ---
VS Expanded 07/08/24 11:34 Height 5 ft 11 in Weight 276 lb 0.6 oz BMI 38.5 Intake Visit Reasons: DM/CONFIRMED Allergies soybean Allergy (Mild, Verified 07/03/24 14:25) hives No Known Drug Allergies Allergy (Unknown, Verified 07/03/24 14:25) none seasonal Allergy (Mild, Uncoded 07/03/24 14:25) congestion Nutrition Presentation Details: Pt presents for MNT for T2DM Pt reports having no meal routine, has increased appetite and wants to learn about foods/snack substitutions BS Monitoring Most Recent Diabetes Results: No Data to Display ELT-Ndyoscq-Al.Jeor Equation Height: 5 ft 11 in Weight: 276 lb Resting Metabolic Rate: 2092.51 Calculated Activity Level: Sedentary Calories Needed to Maintain Weight: 2511.01 Diagnosis Nutrition problem #1: food nutri know defi As related to (etiology) #1: diagnosis As evidenced by (sign/symptom) #1: knowledge deficit of diet PFSH Medical History Opioid use disorder Cervical pain (neck) LFT elevation Impaired fasting blood sugar Numbness of right hand Sexually transmitted disease exposure Polysubstance abuse Osteoarthritis COPD (chronic obstructive pulmonary disease) Peripheral vascular disease History of renal calculi Anxiety and depression Tobacco abuse Insomnia Obesity (BMI 30-39.9) EDUARDO (obstructive sleep apnea) Hypercholesterolemia Vitamin D deficiency Surgical History History of extraction of renal calculus History of repair of rotator cuff Family History Father Medical history unknown Mother Seizure CVD (cerebrovascular disease) Hypertension Mental health disorder Brother Hypertension Diabetes Asthma Substance use disorder CVD (cerebrovascular disease) Son Murder Maternal Aunt Schizophrenia Social History Housing: Other Alcohol intake: current Alcohol intake frequency: a few times a month Patient Tobacco Use Status: Current everyday Tobacco user Tobacco use type: Cigarette Cigarette Packs Per Day: 1 Cigarettes Per Day: 8 e-Cigarette/Vaping Use: Never Used Second Hand Smoke Exposure: Yes service: No Current occupational status: unemployed Cognitive needs: No Hearing needs: No Vision needs: Yes Assessment & Plan Assessment & Plan (1) Type 2 diabetes mellitus with hyperglycemia: Code(s): E11.65 - Type 2 diabetes mellitus with hyperglycemia Category: Medical Plan: Wt: 125 Kg ( 07/16 ) Est kcal needs as per MSJ: 2500 (40% carb, 30% protein/fat) Est fluid needs as per 25-30 ml/d: 3700 Est prot per day as per 1 g/kg bw: 125 Recommend fiber intake : 8-10 g per day and gradually increase to 25-28 g per day for women and 35-38 g for men or as tolerated Recommend sodium intake per day : less than 2300 mg Educated patient on: ( R = reviewed V = verbalizes understanding N/R = needs review N/A = not applicable * Food sources of carbohydrate, adequate serving sizes and its role in various health conditions: R V N/R * Differences between complex carbohydrates a simple carbohydrates, role of fiber in diet: R V N/R * Lean protein sources of foods: R V NR * Differences between types of fats and role in diet (mono on saturated fat fatty acids, saturated fatty acids, trans fats): R V N/R * Food sources of sodium in salt and healthy modifications for heart health in kidney health: R V R/V * Vitamins and minerals: R V N/R * Healthy plate method concept: R * Physical activity: Benefits a precaution: R V N/R * Hypoglycemia protocol (rule of 15): R V N/R * Dietary prevention of Hyperglycemia: R * low sugar beverages, reducing simple carbohydrates: R Patient Instructions: Choose low sugar beverages by reading food labels - see list of options Work on choosing fruit in place of pastries Practice mindful eating see meal ideas consisting of less than 80 g carbs at meal and less than 20-30 g carb as snack , limit to 2 snack per day Coding Level of Care Code Nutr Indiv Intake (57961) Diagnoses Type 2 diabetes mellitus with hyperglycemia E11.65 Time Spent (min) 30
[2024-07-15 11:41] VITALS: BMI 38.5
== END 2024-07-08 14:28 | disposition home or self-care (01) ==
PROVIDERS: PCP Physician Assistant; Visit Provider Dietitian, Registered
DX: E11.65 Type 2 diabetes mellitus with hyperglycemia (principal)

== ENCOUNTER → 2024-07-08 14:02 | Outpatient (BNVA) | payer OTHER, SELFPAY | PROVIDERS: PCP Physician Assistant; Visit Provider Dietitian, Registered | DX: E11.65 Type 2 diabetes mellitus with hyperglycemia (principal) | CPT/HCPCS: 97802 ==

== ENCOUNTER 2024-07-29 08:07 | Outpatient (AMB) | payer OTHER, SELFPAY ==
--- NOTE | 2024-07-29 08:32 | A.OFFVIS_ITS ---
Intake Intake Visit Reasons: DM-conf Dressage Judge Required: No Accompanied by: Self / Same As Patient Allergies soybean Allergy (Mild, Verified 07/03/24 14:25) hives No Known Drug Allergies Allergy (Unknown, Verified 07/03/24 14:25) none seasonal Allergy (Mild, Uncoded 07/03/24 14:25) congestion HPI Comprehensive Diabetes Asmnt Most Recent Diabetes Results: No Data to Display PFSH Medical History Opioid use disorder Cervical pain (neck) LFT elevation Impaired fasting blood sugar Numbness of right hand Sexually transmitted disease exposure Polysubstance abuse Osteoarthritis COPD (chronic obstructive pulmonary disease) Peripheral vascular disease History of renal calculi Anxiety and depression Tobacco abuse Insomnia Obesity (BMI 30-39.9) EDUARDO (obstructive sleep apnea) Hypercholesterolemia Vitamin D deficiency Surgical History History of extraction of renal calculus History of repair of rotator cuff Family History Father Medical history unknown Mother Seizure CVD (cerebrovascular disease) Hypertension Mental health disorder Brother Hypertension Diabetes Asthma Substance use disorder CVD (cerebrovascular disease) Son Murder Maternal Aunt Schizophrenia Social History Housing: Other Alcohol intake: current Alcohol intake frequency: a few times a month Patient Tobacco Use Status: Current everyday Tobacco user Tobacco use type: Cigarette Cigarette Packs Per Day: 1 Cigarettes Per Day: 8 e-Cigarette/Vaping Use: Never Used Second Hand Smoke Exposure: Yes service: No Current occupational status: unemployed Cognitive needs: No Hearing needs: No Vision needs: Yes Assessment & Plan Assessment & Plan (1) Uncontrolled type 2 diabetes mellitus with hyperglycemia, with long-term current use of insulin: Code(s): E11.65 - Type 2 diabetes mellitus with hyperglycemia; Z79.4 - halfway (current) use of insulin Plan: Diabetes self-management education and support participation record Assessment/scale: 1= needs instructed? 2= needs review? 3= comprehend keep point? 4= demonstrates understanding/ competent? NC= Not Covered Topics Learning Objective: Initial visit Initial or post srvc Initial or post srvc Initial or post srvc Initial or post srvc Initial or post srvc Post srvc Comments Pre Edu-assessment/plan Outcome or reassess Outcome or reassess Outcome or reassess Outcome or reassess Outcome or reassess Outcome or reassess Diabetes pathophysiology 1 Healthy eating 2 Being active 2 Taking medication 2 Monitoring glucose 2 Acute complication 1 Chronic complicated 1 Lifestyle and healthy coping 1 Diabetes distress in support 1 ?Diabetes pathophysiology: ?Defined diabetes med identify own type of diabetes; list 3 options for treating diabetes Healthy eating: ?Described effect of type, amount and ?timing of food on blood glucose; list 3 methods for planning meal Being active: ?State effect of exercise on blood glucose level Taking medication: ?State effect of diabetes medications on diabetes; name diabetes medications taking, action and side effects Monitoring glucose: ?Identify recommended blood glucose targets and personal target Acute complication: ?List symptoms and treatment of hyper and hypoglycemia, DKA, sick day guidelines and guidelines for severe weather or situations of crisis and diabetes supply manage Chronic complication: ?To find the relationship of blood glucose levels to long- term complications of diabetes in screening and preventative measures Lifestyle and healthy coping: ?Described lifestyle and healthy coping strategies to rule out diabetes self-management Diabetes to stress and support: ?Recognize Diabetes to stress and be able to identified support options Learning objectives: The patient was provided with verbal and written education on the following topics as outlined below. Assess patient education level/literacy/barriers, Pt read back the symptoms of hypoglycemia from hypoglycemia handout Patient questions/concerns, patient using freestyle Gael 3 to monitor glucose Average glucose for the past 14 days 151 mg/dL Above target 22% At target 78% Below target 0% Patient's last A1c on 03/16/2024 11.2%, patient will be due for next A1c in 08/2024 patient has follow-up visit scheduled with PCP and with Endocrine PA Patient reports having adhesion issues with Gael 3, patient given a sample of overlay patch and skin tack. Instructed patient how to use both. Patient's glucose levels have improved patient reports he has decrease the amount high carbohydrate snacks between meals. Patient is currently taking Trulicity 1.5 mg weekly Lantus 14 units daily Glipizide ER 5 mg daily The patient met all learning objectives and was able to verbalize understanding and provide teach back of education topics discussed . The patient was provided with the opportunity to ask questions and all questions were answered. Topics covered in today?s session included: Medications (If applicable) * Name of medication? * Dosing/administration instructions? * Mechanism of action? * Potential side effects? * Potential adverse reaction and appropriate treatment? * Review onset, peak, duration Assess for concerns re: insurance coverage, cost, barriers to compliance Insulin/Injectables (If applicable) * Storage/care of insulin?? * Injection sites? * Site rotation? * Onset, peak, duration * Drawing up insulin? * Injecting insulin/other injectables? * Sharps disposal Continuous blood glucose monitoring (if applicable) Hypoglycemia and Hyperglycemia * Signs and symptoms? * Causes?? * Treatment? * Preventing hypoglycemia? * When to seek medical attention Target Goals: * Blood glucose targets and how you feel when your blood glucose is in and out of your target ranges. * Monitoring and knowing your A1C. * What can make blood glucose go up and down and preventing high and low blood glucose. * Review of blood sugar targets in expected goal range and outside of expected goal range. * Problem solving and preventing hyper/hypoglycemia. * Sick day management of diabetes. * Using blood sugar results in decision making process in managing diabetes. ?Patient was receptive to information provided and participated in the discussion. Asked?appropriate questions and demonstrated good understanding of the topics discussed.? ? Educational Materials: The patient was provided with the following written educational materials: Target Goal, Rule of 15s handouts Smart Goal:? Continue to reduce amount of high carbohydrate snacks in between meals Patient Response to instructions: Comprehension of Instructions: fair Readiness to make changes:? Contemplation How confident they feel about making changes: Positive Portions of this note were created using voice recognition software, please excuse any words or phrases that may have been misinterpreted. Patient Instructions: Patient contact wellness educator with questions concerns Patient will follow-up with Diabetes Education nurse in 3 months Coding Level of Care Code Est Pt Level 1 (44804) Diagnoses Uncontrolled type 2 diabetes mellitus with hyperglycemia, with long-term current use of insulin E11.65; Z79.4
== END 2024-07-29 08:33 | disposition home or self-care (01) ==
LOC: HO.ENCR 08:08
PROVIDERS: Visit Provider Registered Nurse Diabetes Educator
DX: E11.65 Type 2 diabetes mellitus with hyperglycemia (principal); Z79.4 Long term (current) use of insulin

== ENCOUNTER → 2024-07-29 08:07 | Outpatient (BNVA) | payer OTHER, SELFPAY | PROVIDERS: Visit Provider Registered Nurse Diabetes Educator | DX: E11.65 Type 2 diabetes mellitus with hyperglycemia (principal); Z71.89 Other specified counseling; Z79.4 Long term (current) use of insulin | CPT/HCPCS: 99211 ==

== ENCOUNTER 2024-08-19 10:11 | Outpatient (AMB) | payer OTHER, SELFPAY ==
--- NOTE | 2024-08-19 10:18 | A.OFFVIS_ITS ---
VS Expanded 08/19/24 10:19 Height 5 ft 11 in Weight 279 lb 1.683 oz BMI 38.9 Intake Visit Reasons: T2DM/CONFIRMED Allergies soybean Allergy (Mild, Verified 07/03/24 14:25) hives No Known Drug Allergies Allergy (Unknown, Verified 07/03/24 14:25) none seasonal Allergy (Mild, Uncoded 07/03/24 14:25) congestion Nutrition Presentation Details: Pt presents for MNT f/u for T2DM Pt reports having had low bg in the night in the past week which he treated by having chocolate Pt reports keeping sedentary including fruits- no BS Monitoring Most Recent Diabetes Results: No Data to Display [facility] Medical History Opioid use disorder Cervical pain (neck) LFT elevation Impaired fasting blood sugar Numbness of right hand Sexually transmitted disease exposure Polysubstance abuse Osteoarthritis COPD (chronic obstructive pulmonary disease) Peripheral vascular disease History of renal calculi Anxiety and depression Tobacco abuse Insomnia Obesity (BMI 30-39.9) EDUARDO (obstructive sleep apnea) Hypercholesterolemia Vitamin D deficiency Surgical History History of extraction of renal calculus History of repair of rotator cuff Family History Father Medical history unknown Mother Seizure CVD (cerebrovascular disease) Hypertension Mental health disorder Brother Hypertension Diabetes Asthma Substance use disorder CVD (cerebrovascular disease) Son Murder Maternal Aunt Schizophrenia Social History Housing: Other Alcohol intake: current Alcohol intake frequency: a few times a month Patient Tobacco Use Status: Current everyday Tobacco user Tobacco use type: Cigarette Cigarette Packs Per Day: 1 Cigarettes Per Day: 8 e-Cigarette/Vaping Use: Never Used Second Hand Smoke Exposure: Yes service: No Current occupational status: unemployed Cognitive needs: No Hearing needs: No Vision needs: Yes Assessment & Plan Assessment & Plan (1) Type 2 diabetes mellitus with hyperglycemia: Code(s): E11.65 - Type 2 diabetes mellitus with hyperglycemia Category: Medical Plan: Wt: 125 Kg ( 07/16 ), 127 kg(08/16) Est kcal needs as per MSJ: 2500 (40% carb, 30% protein/fat) Est fluid needs as per 25-30 ml/d: 3700 Est prot per day as per 1 g/kg bw: 125 Recommend fiber intake : 8-10 g per day and gradually increase to 25-28 g per day for women and 35-38 g for men or as tolerated Recommend sodium intake per day : less than 2300 mg Educated patient on: ( R = reviewed V = verbalizes understanding N/R = needs review N/A = not applicable * Food sources of carbohydrate, adequate serving sizes and its role in various health conditions: - reducing pastries and choosing a fruit R * Differences between complex carbohydrates a simple carbohydrates, role of fiber in diet: R V N/R * Lean protein sources of foods: R V NR * Differences between types of fats and role in diet (mono on saturated fat fatty acids, saturated fatty acids, trans fats): R V N/R * Food sources of sodium in salt and healthy modifications for heart health in kidney health: R V R/V * Vitamins and minerals: R V N/R * Healthy plate method concept: R * Physical activity: Benefits a precaution: R V N/R * Hypoglycemia protocol (rule of 15): R V N/R * Dietary prevention of Hyperglycemia: R * low sugar beverages, reducing simple carbohydrates: R Patient Instructions: Treat low blood sugar by having a tablespoon of honey or sugar in place of chocolate Get into a walking routine, walk daily 30 to 60 minutes Coding Level of Care Code Nutr Indiv Subseq (28147) Diagnoses Type 2 diabetes mellitus with hyperglycemia E11.65 Time Spent (min) 20
[2024-08-19 10:19] VITALS: BMI 38.9
== END 2024-08-19 10:33 | disposition home or self-care (01) ==
PROVIDERS: PCP Physician Assistant; Visit Provider Dietitian, Registered
DX: E11.65 Type 2 diabetes mellitus with hyperglycemia (principal)

== ENCOUNTER → 2024-08-19 10:11 | Outpatient (BNVA) | payer OTHER, SELFPAY | PROVIDERS: PCP Physician Assistant; Visit Provider Dietitian, Registered | DX: E11.65 Type 2 diabetes mellitus with hyperglycemia (principal) | CPT/HCPCS: 97803 ==

== ENCOUNTER 2024-08-31 13:32 | Outpatient (AMB) | payer OTHER, SELFPAY ==
--- NOTE | 2024-08-31 13:38 | HO.NEPHOV_ITS ---
Vital Signs 08/31/24 13:40 Height 5 ft 11 in Weight 281 lb 2 oz BMI 39.2 BP 122/72 Blood Pressure Location Lt brachial Position Sitting Intake Visit Reasons: CKD stage 3, long term acute care registered nurse insulin use/ Conf Transportation Job Titles Required: No Accompanied by: Self / Same As Patient Allergies soybean Allergy (Mild, Verified 08/31/24 13:39) hives No Known Drug Allergies Allergy (Unknown, Verified 08/31/24 13:39) none seasonal Allergy (Mild, Uncoded 07/03/24 14:25) congestion HPI Comments Details: 58-year-old male with poly substance abuse, ongoing cocaine use, prior NC, prior CVA, uncontrolled type 2 diabetes, hypertension, hyperlipidemia, tobacco use, EDUARDO on CPAP, obesity presented today in the office in consulation for HARESH on CKD. He [place] [facility] [place] & was seen on 06/01/2024 & no change to medication regimen was made. He claims to have better blood sugar control. He denies nausea, vomiting, diarrhea, orthostatic symptoms, renal calculi, chest pain , SOB, PND, orthopnea, hematuria or any other systemic complaints. He is concerned about his rise in serum creatinine. [facility] Medical History Opioid use disorder Cervical pain (neck) LFT elevation Impaired fasting blood sugar Numbness of right hand Sexually transmitted disease exposure Polysubstance abuse Osteoarthritis COPD (chronic obstructive pulmonary disease) Peripheral vascular disease History of renal calculi Anxiety and depression Tobacco abuse Insomnia Obesity (BMI 30-39.9) EDUARDO (obstructive sleep apnea) Hypercholesterolemia Vitamin D deficiency Surgical History History of extraction of renal calculus History of repair of rotator cuff Family History Father Medical history unknown Mother Seizure CVD (cerebrovascular disease) Hypertension Mental health disorder Brother Hypertension Diabetes Asthma Substance use disorder CVD (cerebrovascular disease) Son Murder Maternal Aunt Schizophrenia Social History Housing: Other Alcohol intake: current Alcohol intake frequency: a few times a month Patient Tobacco Use Status: Current everyday Tobacco user Tobacco use type: Cigarette Cigarette Packs Per Day: 1 Cigarettes Per Day: 8 e-Cigarette/Vaping Use: Never Used Second Hand Smoke Exposure: Yes service: No Current occupational status: unemployed Cognitive needs: No Hearing needs: No Vision needs: Yes Review of Systems Const All systems reviewed & are unremarkable except as noted in HPI and below Physical Exam Vital Signs: Last Vital Signs BP 122/72 08/31/24 13:40 BMI result Body Mass Index 39.2 Const General: comfortable and no acute distress Orientation/consciousness: patient oriented x3 HEENT Head: Yes normocephalic Mouth: Normal oral and palatal mucosa present Eyes EOM: EOMs intact bilaterally Neck Neck: Yes supple Resp Auscultation: clear to auscultation bilaterally Cardio Jugular venous distension: no JVD Rate: regular rate GI Palpation (GI): Soft to palpation Auscultation: normal bowel sounds General: Yes no CVA tenderness Back/Spine/Pelvis Back: no CVA tenderness Skin General skin exam: no rashes or lesions noted Neuro General: patient oriented x3 and moves all extremities Assessment & Plan Assessment & Plan (1) CKD (chronic kidney disease) stage 3, GFR 30-59 ml/min: Code(s): N18.30 - Chronic kidney disease, stage 3 unspecified Category: Medical Qualifiers: Chronic kidney disease stage 3 subtype: stage 3b (GFR 30-44) Qualified Code(s): N18.32 - Chronic kidney disease, stage 3b (2) Acute kidney injury superimposed on CKD: Code(s): N17.9 - Acute kidney failure, unspecified; N18.9 - Chronic kidney disease, unspecified Category: Medical (3) Hypertension: Code(s): I10 - Essential (primary) hypertension Category: Medical Qualifiers: Hypertension type: primary hypertension Qualified Code(s): I10 - Essential (primary) hypertension (4) Cocaine abuse: Code(s): F14.10 - Cocaine abuse, uncomplicated Category: Medical Plan Jose E has HARESH on CKD due to tubular injury due to ongoing cocaine abuse. GN is in the differential. 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 He is on ACEI. He should maintain good hydration, avoid cocaine as well as excess NSAID use. His urine out put is good. Detailed work up has ordered. All these have been explained in detail. If his creatinine doesnt improve, he may need a renal biopsy. Further management is pending evolving data. F/U given in a month Orders: Orders Creatinine Today N18.32 - Chronic kidney disease, stage 3b Electrolytes Today N18.32 - Chronic kidney disease, stage 3b Calcium Today N18.32 - Chronic kidney disease, stage 3b Complete Blood Count Auto Diff Today N18.32 - Chronic kidney disease, stage 3b Proteinase 3 PR3 Antibodies Today N18.32 - Chronic kidney disease, stage 3b Anti Glomerular Basement Memb Today N18.32 - Chronic kidney disease, stage 3b Immunofixation Pnl, Serum Today N18.32 - Chronic kidney disease, stage 3b Hepatitis B Core Antibody Today N18.32 - Chronic kidney disease, stage 3b Hepatitis B Surface Antigen Today N18.32 - Chronic kidney disease, stage 3b Protein Creatinine Ratio, Ur Today N18.32 - Chronic kidney disease, stage 3b Blood Urea Nitrogen Today N18.32 - Chronic kidney disease, stage 3b Prothrombin Time INR Today N18.32 - Chronic kidney disease, stage 3b Anti DNA DS Antibody Today N18.32 - Chronic kidney disease, stage 3b Myeloperoxidase Antibody Today N18.32 - Chronic kidney disease, stage 3b Complement C4 Today N18.32 - Chronic kidney disease, stage 3b Complement C3 Today N18.32 - Chronic kidney disease, stage 3b Phospholipase A2 Receptor Pnl Today N18.32 - Chronic kidney disease, stage 3b Hepatitis C Antibody Reflex Today N18.32 - Chronic kidney disease, stage 3b UA and rflx microscopic Today N18.32 - Chronic kidney disease, stage 3b US renal BI 1 Week N18.32 - Chronic kidney disease, stage 3b Coding Level of Care Code New Pt Level 4 (14607) Diagnoses Stage 3b chronic kidney disease N18.32 Chronic kidney disease stage 3 subtype: stage 3b (GFR 30-44) Acute kidney injury superimposed on CKD N17.9; N18.9 Primary hypertension I10 Hypertension type: primary hypertension Cocaine abuse F14.10
[2024-08-31 13:40] VITALS: BP 122/72; BMI 39.2
== END 2024-08-31 14:03 | disposition home or self-care (01) ==
PROVIDERS: PCP Physician Assistant; Referring Provider Physician Assistant; Visit Provider Internal Medicine Nephrology
DX: N17.9 Acute kidney failure, unspecified (principal); I12.9 Hypertensive chronic kidney disease with stage 1 through stage 4 chronic kidney disease, or unspecified chronic kidney disease; N18.32 Chronic kidney disease, stage 3b; F14.10 Cocaine abuse, uncomplicated
CPT/HCPCS: 99204

== ENCOUNTER → 2024-08-31 13:32 | Outpatient (BNVA) | payer OTHER, SELFPAY | PROVIDERS: PCP Physician Assistant; Referring Provider Physician Assistant; Visit Provider Internal Medicine Nephrology | DX: I12.9 Hypertensive chronic kidney disease with stage 1 through stage 4 chronic kidney disease, or unspecified chronic kidney disease (principal); N18.32 Chronic kidney disease, stage 3b; N17.9 Acute kidney failure, unspecified; F14.10 Cocaine abuse, uncomplicated; Z79.4 Long term (current) use of insulin | CPT/HCPCS: 99202 ==

== ENCOUNTER 2024-09-01 10:28 | Outpatient (REF) | payer OTHER, SELFPAY ==
[2024-09-01 10:49] LABS: MANUAL DIFF FLAG NO
[2024-09-01 12:14] LABS: Basophils Percent Auto 0.2 % (0-2); Eosinophils Absolute Auto 0.2 X10*3/uL (0.0-0.4); Hematocrit 41.5 % (42.0-52.0); Hemoglobin 13.4 g/dl (14.0-18.0); Imm Gran Abs Auto 0.03 X10*3/uL (0.00-0.03); Imm Gran Pct Auto 0.5 % (0.0-0.4); Lymphocytes Absolute Auto 1.4 X10*3/uL (1.2-4.9); Lymphocytes Percent Auto 22.9 % (20-40); Mean Corpuscular HGB Conc 32.3 g/dl (31.0-36.0); Mean Corpuscular Hemoglobin 29.9 pg (27.0-33.0); Mean Corpuscular Volume 92.6 fL (80.0-98.0); Mean Platelet Volume 9.3 fL (9.4-12.4); Monocytes Absolute Auto 0.4 X10*3/uL (0.1-1.2); Monocytes Percent Auto 6.5 % (2-11); Neutrophils Percent Auto 66.9 % (45-73); Platelet Count 238 X10*3/uL (160-400); Red Blood Count 4.48 X10*6/uL (4.60-5.80); Red Cell Distribution Width 13.3 % (11.0-16.0)
[2024-09-01 12:17] LABS: INTERNATIONAL NORM RATIO 0.9 (0.9-1.1); Prothrombin Time 10.6 SEC (10.9-12.4)
[2024-09-01 12:39] LABS: Anion Gap 12 (12-20); Blood Urea Nitrogen 21 mg/dL (9-16); Calcium 9.2 mg/dL (8.4-10.2); Carbon Dioxide 25 mmol/L (22-29); Chloride 106 mmol/L (96-108); Estimated Glomerular Filt Rate 49; Potassium 4.2 mmol/L (3.3-5.1); Sodium 139 mmol/L (135-145)
[2024-09-01 12:45] LABS: Appearance Urine Clear; Color Urine Yellow; Glucose Urine UA >=1000 mg/dL (Negative); Leukocyte Esterase Urine Negative (Negative); Nitrite Urine Negative (Negative); PH 6.5 (5.0-9.0); Specific Gravity - Urine 1.025 (1.005-1.025); UMIC TRIGGER UA YES; Urine Blood Negative (Negative); Urine Ketones Negative (Negative); Urine Protein Negative (Neg-Trace)
[2024-09-01 13:09] LABS: HBc Num1 0.08 S/CO (0.00-0.79); Hepatitis B Core Antibody Nonreactive (Nonreactive); Hepatitis B Surface Antigen Negative (Negative); ~HepC Num1 0.18 S/CO (0.00-0.79); ~Hepatitis C Antibody Nonreactive (Nonreactive)
[2024-09-01 13:15] LABS: Creatinine Urine 92.22 mg/dL; Protein/Creatinine Ratio, Ur 0.12 (<0.2); Total Protein Urine Random 11 mg/dL (<12)
[2024-09-01 15:22] LABS: Bacteria Urine None Seen (None Seen); Hyaline Casts Urine 0-2 /LPF (0-2); RBC Urine 0-2 /HPF (0-2); Squamous Epithelial Cell Urine 0-2 /HPF (0-2); WBC Urine 0-5 /HPF (0-5)
[2024-09-03 16:08] LABS: Anti DNA DS Antibody <1 IU/mL; Anti Glomerular Basement Memb <1.0 AI; Myeloperoxidase Antibody <1.0 AI; Proteinase 3 PR3 Antibodies <1.0 AI
[2024-09-03 18:03] LABS: IgA 239 mg/dL (47-310); IgG 1224 mg/dL (600-1640); IgM 86 mg/dL (50-300)
[2024-09-05 21:18] LABS: Phospholipase A2 IgG ELISA <4 RU/mL; Phospholipase A2 IgG IFA NEGATIVE (NEGATIVE)
[2024-09-07 11:09] LABS: Complement C3 153 mg/dL (82-185)
== END 2024-09-01 10:29 | disposition home or self-care (01) ==
LOC: HO.LAB 10:28
PROVIDERS: PCP Internal Medicine; Visit Provider Internal Medicine Nephrology
DX: N18.32 Chronic kidney disease, stage 3b (principal)
CPT/HCPCS: 36415; 80051; 81001; 82310; 82565; 82570; 82784; 83520; 84156; 84520; 85025; 85610; 86021; 86160; 86225; 86255; 86334; 86704; 86803; 87340

== ENCOUNTER 2024-09-04 12:33 | Outpatient (REF) | payer OTHER, SELFPAY ==
--- NOTE | ~2024-09-04 | US_ITS ---
EXAMINATION: US RETROPERITONEAL LIMITED (RENAL ONLY) CLINICAL INFORMATION: Chronic kidney disease.. COMPARISON: None available. TECHNIQUE: CT scan dated September 09, 2013. FINDINGS: RIGHT KIDNEY: 11.7 x 6.0 x 6.4 cm (SAG x AP x TRV). 1.4 x 1.3 x 1.1 cm benign right lower pole simple renal cyst for which no further dedicated follow-up imaging as indicated. The kidney otherwise appears unremarkable in size, contour, and echogenicity. Renal cortical thickness is normal. No calculi or suspicious focal parenchymal lesion identified. No hydronephrosis. LEFT KIDNEY: 10.4 x 5.9 x 5.2 cm (SAG x AP x TRV). The kidney appears unremarkable in size, contour, and echogenicity. Renal cortical thickness is normal. No calculi or focal parenchymal lesion identified. No hydronephrosis. BLADDER/PROSTATE: Not imaged. US/US renal BI IMPRESSION: Essentially unremarkable bilateral renal ultrasound examination. No evidence of hydronephrosis. Electronically signed by: Finesse Sanchez MD 09/04/2024 04:22 PM EST
== END 2024-09-04 12:34 | disposition home or self-care (01) ==
LOC: HO.US 12:33
PROVIDERS: PCP Internal Medicine; Visit Provider Internal Medicine Nephrology
DX: N18.32 Chronic kidney disease, stage 3b (principal)
CPT/HCPCS: 76775

== ENCOUNTER 2024-09-11 07:36 | Outpatient (REF) | payer OTHER, SELFPAY ==
[2024-09-11 09:03] LABS: Cholesterol 171 mg/dL (<200); HDL Cholesterol 52 mg/dL (>40); LDL Cholesterol Calculated 105 mg/dL (<100); Triglycerides 74 mg/dL (<150)
[2024-09-11 10:05] LABS: Appearance Urine Clear; Color Urine Yellow; Glucose Urine UA 500 mg/dL (Negative); Leukocyte Esterase Urine Negative (Negative); Nitrite Urine Negative (Negative); PH 5.5 (5.0-9.0); Urine Blood Negative (Negative); Urine Ketones Negative (Negative); Urine Protein Negative (Neg-Trace)
== END 2024-09-11 07:37 | disposition home or self-care (01) ==
LOC: HO.LAB 07:36
PROVIDERS: Internal Medicine Nephrology; PCP Internal Medicine
DX: N17.9 Acute kidney failure, unspecified (principal); N18.32 Chronic kidney disease, stage 3b; F14.10 Cocaine abuse, uncomplicated; I10 Essential (primary) hypertension
CPT/HCPCS: 36415; 80061; 81003; 99212

== ENCOUNTER 2024-09-11 09:42 | Outpatient (AMB) | payer OTHER, SELFPAY ==
--- NOTE | 2024-09-11 09:48 | HO.NEPHOV ---
Vital Signs 09/11/24 09:50 Height 5 ft 11 in Weight 293 lb 2 oz BMI 40.9 BP 140/90 H Blood Pressure Location Rt brachial Position Sitting Pulse 84 Pulse Source Pulse Oximeter Pulse Oximetry (%) 96 Oxygen Delivery Method Room Air Intake Visit Reasons: CKD-Conf Legal Advisor Required: No Accompanied by: Significant Other Allergies soybean Allergy (Mild, Verified 09/11/24 09:50) hives No Known Drug Allergies Allergy (Unknown, Verified 09/11/24 09:50) none seasonal Allergy (Mild, Uncoded 07/03/24 14:25) congestion HPI Comments Details: 59-year-old male with poly substance abuse, ongoing cocaine use, prior PR, prior CVA, uncontrolled type 2 diabetes, hypertension, hyperlipidemia, tobacco use, EDUARDO on CPAP, obesity presented today in the office in consulation for HARESH on CKD. [place] [facility] & was seen on 06/01/2024 & no change to medication regimen was made. He claims to have better blood sugar control. He denies nausea, vomiting, diarrhea, orthostatic symptoms, renal calculi, chest pain , SOB, PND, orthopnea, hematuria or any other systemic complaints. [facility] Medical History Opioid use disorder Cervical pain (neck) LFT elevation Impaired fasting blood sugar Numbness of right hand Sexually transmitted disease exposure Polysubstance abuse Osteoarthritis COPD (chronic obstructive pulmonary disease) Peripheral vascular disease History of renal calculi Anxiety and depression Tobacco abuse Insomnia Obesity (BMI 30-39.9) EDUARDO (obstructive sleep apnea) Hypercholesterolemia Vitamin D deficiency Surgical History History of extraction of renal calculus History of repair of rotator cuff Family History Father Medical history unknown Mother Seizure CVD (cerebrovascular disease) Hypertension Mental health disorder Brother Hypertension Diabetes Asthma Substance use disorder CVD (cerebrovascular disease) Son Murder Maternal Aunt Schizophrenia Social History Housing: Other Alcohol intake: current Alcohol intake frequency: a few times a month Patient Tobacco Use Status: Current everyday Tobacco user Tobacco use type: Cigarette Cigarette Packs Per Day: 1 Cigarettes Per Day: 8 e-Cigarette/Vaping Use: Never Used Second Hand Smoke Exposure: Yes service: No Current occupational status: unemployed Cognitive needs: No Hearing needs: No Vision needs: Yes Review of Systems Const All systems reviewed & are unremarkable except as noted in HPI and below Physical Exam Vital Signs: Last Vital Signs Pulse 84 09/11/24 09:50 BP 140/90 H 09/11/24 09:50 Pulse Ox 96 09/11/24 09:50 Oxygen Delivery Method Room Air 09/11/24 09:50 BMI result Body Mass Index 40.9 Const General: comfortable and no acute distress Orientation/consciousness: patient oriented x3 HEENT Head: Yes normocephalic Mouth: Normal oral and palatal mucosa present Eyes EOM: EOMs intact bilaterally Neck Neck: Yes supple Resp Auscultation: clear to auscultation bilaterally Cardio Jugular venous distension: no JVD Rate: regular rate GI Palpation (GI): Soft to palpation Auscultation: normal bowel sounds General: Yes no CVA tenderness Back/Spine/Pelvis Back: no CVA tenderness Skin General skin exam: no rashes or lesions noted Neuro General: patient oriented x3 and moves all extremities Extrem General: Yes no pedal edema Results Reviewed Nephrology Results: Hgb 13.4 g/dl (14.0-18.0) L 09/01/24 WBC 6.0 X10*3/uL (4.8-10.8) 09/01/24 Plt Count 238 X10*3/uL (160-400) 09/01/24 Sodium 139 mmol/L (135-145) 09/01/24 Potassium 4.2 mmol/L (3.3-5.1) 09/01/24 Chloride 106 mmol/L (96-108) 09/01/24 Carbon Dioxide 25 mmol/L (22-29) 09/01/24 BUN 21 mg/dL (9-16) H 09/01/24 Creatinine 1.46 mg/dL (0.5-1.4) H 09/01/24 Calcium 9.2 mg/dL (8.4-10.2) 09/01/24 Urine Protein Negative mg/dL (Neg-Trace) 09/11/24 Urine Creatinine 92.22 mg/dL 09/01/24 Protein/Creatinin Ratio 0.12 (<0.2) 09/01/24 Renal US 09/04/24 Assessment & Plan Assessment & Plan (1) Acute kidney injury superimposed on CKD: Code(s): N17.9 - Acute kidney failure, unspecified; N18.9 - Chronic kidney disease, unspecified Category: Medical (2) CKD (chronic kidney disease) stage 3, GFR 30-59 ml/min: Code(s): N18.30 - Chronic kidney disease, stage 3 unspecified Category: Medical Qualifiers: Chronic kidney disease stage 3 subtype: stage 3b (GFR 30-44) Qualified Code(s): N18.32 - Chronic kidney disease, stage 3b (3) Cocaine abuse: Code(s): F14.10 - Cocaine abuse, uncomplicated Category: Medical (4) Hypertension: Code(s): I10 - Essential (primary) hypertension Category: Medical Qualifiers: Hypertension type: primary hypertension Qualified Code(s): I10 - Essential (primary) hypertension Plan Jose E has HARESH on CKD due to tubular injury due to ongoing cocaine abuse. His serum creatinine is marginally better. GN was in the differential, unlikely given current labs. 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 He is on ACEI. He should maintain good hydration, avoid cocaine as well as excess NSAID use. His urine out put is good. All these have been explained in detail. He may need a renal biopsy. Further management is pending evolving data. F/U given in a month Orders: Orders Creatinine 6 Weeks N17.9 - Acute kidney failure, unspecified, N18.9 - Chronic kidney disease, unspecified Blood Urea Nitrogen 6 Weeks N17.9 - Acute kidney failure, unspecified, N18.9 - Chronic kidney disease, unspecified Electrolytes 6 Weeks N17.9 - Acute kidney failure, unspecified, N18.9 - Chronic kidney disease, unspecified Coding Level of Care Code Est Pt Level 4 (57577) Diagnoses Acute kidney injury superimposed on CKD N17.9; N18.9 Stage 3b chronic kidney disease N18.32 Chronic kidney disease stage 3 subtype: stage 3b (GFR 30-44) Cocaine abuse F14.10 Primary hypertension I10 Hypertension type: primary hypertension
[2024-09-11 09:50] VITALS: BP 140/90; PULSE 84; O2SAT 96; BMI 40.9
== END 2024-09-11 10:20 | disposition home or self-care (01) ==
PROVIDERS: PCP Physician Assistant; Visit Provider Internal Medicine Nephrology
DX: N17.9 Acute kidney failure, unspecified (principal); I12.9 Hypertensive chronic kidney disease with stage 1 through stage 4 chronic kidney disease, or unspecified chronic kidney disease; N18.32 Chronic kidney disease, stage 3b; F14.10 Cocaine abuse, uncomplicated
CPT/HCPCS: 99214

== ENCOUNTER 2024-09-30 08:59 | Outpatient (AMB) | payer OTHER, SELFPAY ==
[2024-09-30 09:11] VITALS: BP 150/90; PULSE 86; O2SAT 93; BMI 40.6
--- NOTE | 2024-09-30 09:11 | A.OFFPC_ITS ---
Vital Signs 09/30/24 09:11 Height 5 ft 11 in Weight 291 lb 2 oz BMI 40.6 BP 150/90 H Blood Pressure Location Lt brachial Position Sitting Pulse 86 Pulse Source Pulse Oximeter Pulse Oximetry (%) 93 Oxygen Delivery Method Room Air Intake Visit Reasons: 3 Month F/U- repeat A1C (elevated 11.2) Field Associate Required: No Accompanied by: Self / Same As Patient Allergies soybean Allergy (Mild, Verified 09/30/24 09:11) hives No Known Drug Allergies Allergy (Unknown, Verified 09/30/24 09:11) none seasonal Allergy (Mild, Uncoded 09/30/24 09:11) congestion Medication List - Last Reconciled 09/30/24 by Janki Freire PA-C albuterol sulfate 90 mcg/actuation (Proventil HFA) 2 puffs inhalation Q4-6H PRN aspirin (Adult Low Dose Aspirin) 81 mg PO DAILY blood pressure monitor (Blood Pressure Kit) As directed blood sugar diagnostic (FreeStyle Lite Strips) Use daily As directed to check blood glucose blood-glucose meter (FreeStyle Lite Meter kit) Use daily As directed to check blood sugars blood-glucose meter,continuous (FreeStyle Gael 3 [place]) Use daily As directed to monitor blood glucose blood-glucose sensor (FreeStyle Gael 3 Sensor device) Apply every 14 days As directed to monitor blood glucose [CANE As directed] clotrimazole 1% 1 appl topical BID 4 weeks diclofenac sodium 1% (Voltaren Arthritis Pain) 4 grams topical QID dulaglutide (Trulicity) 1.5 mg (0.5 mL) subcut QWEEK glipizide ER 5 mg PO DAILY insulin glargine (Lantus Solostar U-100 Insulin) 14 units (0.14 mL) subcut QAM 30 days lancets (OneTouch Delica Plus Lancet) As directed lancets (FreeStyle Lancets) use daily as directed to check blood glucose lisinopril-hydrochlorothiazide 10-12.5 mg 1 tab PO DAILY miconazole nitrate 2% (Zeasorb AF) 1 appl topical BID mometasone-formoterol 200-5 mcg/actuation (Dulera) 2 puffs inhalation BID omeprazole 20 mg PO DAILY 90 days peg 3350-electrolytes 236-22.74-6.74 -5.86 gram (Golytely) 240 mL PO Q10M 1 day pen needle, diabetic (BD Ultra-Fine Short Pen Needle) Use daily As directed to administer insulin rosuvastatin 20 mg PO DAILY sertraline 25 mg PO BEDTIME tiotropium bromide 2.5 mcg/actuation (Spiriva Respimat) 2 puffs inhalation QAM 30 days trazodone 100 mg PO BEDTIME PRN Tobacco use date assessed: 09/30/24 Dental Screening Dental Screen Date: 09/30/24 Did you have a dental visit in the last 12 months?: No Did you have a dental problem in the last 6 months where you did not have access to dental care?: No Was dental information given to patient?: No HPI 3 Month F/U- repeat A1C (elevated 11.2) HPI Details 59-year-old male with past medical histo ry substance abuse, prior [place], prior CVA, fatty liver, uncontrolled type 2 diabetes, hypertension, hyperlipidemia, COPD, tobacco abuse, obstructive sleep apnea on CPAP, obesity and GERD last seen May 2024 coming in for follow up.? In review of the notes patient was seen by Nephrology 12 to has been for for CKD due to ongoing cocaine abuse avoid cocaine, maintain good hydration and follow up in a month. Patient was seen by endocrinology for diabetic education.? Seen by endocrinology 07/03/2024 insulin adjustment and continued on Jardiance and Trulicity. Patient tells us today he has been monitoring his blood sugar at home he did have 1 low value in the last 60 days and having 6 low values in the last 90 days. States he often skips meals and we will have 1 meal a day. He is not using a CPAP but was previously told he has obstructive sleep apnea requiring CPAP therapy but never finished the workup for this. 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 [facility] Medical History Opioid use disorder Cervical pain (neck) LFT elevation Impaired fasting blood sugar Numbness of right hand Sexually transmitted disease exposure Polysubstance abuse Osteoarthritis COPD (chronic obstructive pulmonary disease) Peripheral vascular disease History of renal calculi Anxiety and depression Tobacco abuse Insomnia Obesity (BMI 30-39.9) EDUARDO (obstructive sleep apnea) Hypercholesterolemia Vitamin D deficiency Surgical History History of extraction of renal calculus History of repair of rotator cuff Family History Father Medical history unknown Mother Seizure CVD (cerebrovascular disease) Hypertension Mental health disorder Brother Hypertension Diabetes Asthma Substance use disorder CVD (cerebrovascular disease) Son Murder Maternal Aunt Schizophrenia Social History Housing: Other Alcohol intake: current Alcohol intake frequency: a few times a month Patient Tobacco Use Status: Current everyday Tobacco user Tobacco use type: Cigarette Cigarette Packs Per Day: 1 Cigarettes Per Day: 8 e-Cigarette/Vaping Use: Never Used Second Hand Smoke Exposure: Yes service: No Current occupational status: unemployed Cognitive needs: No Hearing needs: No Vision needs: Yes Questionnaire PHQ-9 Over the last 2 weeks, how often have you been bothered by any of the following problems? 1. Little interest or pleasure in doing things: nearly every day 2. Feeling down, depressed, or hopeless: nearly every day 3. Trouble falling or staying asleep, or sleeping too much: nearly every day 4. Feeling tired or having little energy: nearly every day 5. Poor appetite or overeating: nearly every day 6. Feeling bad about yourself - or that you are a failure or have let yourself or your family down: nearly every day 7. Trouble concentrating on things, such as reading the newspaper or watching television: nearly every day 8. Moving or speaking so slowly that other people could have noticed. Or the opposite - being so fidgety or restless that you have been moving around a lot more than usual: nearly every day 9. Thoughts that you would be better off or of hurting yourself in some way: several days Total score: 25 [id number] - PHQ-9 Billing: Yes Source: Developed by Drs. Ricardo Love, Stephanie Javier, Yobany Victor and colleagues, with an educational ernestine from [employer]. Thrive Questionnaire Date Thrive assessed: 09/30/24 I am a: Patient What is your living situation today?: I have a steady place to live Within the past 12 months, did the food you bought not last and you didn't have the money to get more?: Never true Within the past 12 months, did you worry whether your food would run out before you got money to buy more?: Never true Do you have trouble paying for medicines?: No Do you have trouble getting transportation to medical appointments?: No Do you have trouble paying your heating and electricity bill?: No Do you have trouble taking care of your child, family member or friend?: No Do you have trouble with day-to-day activities such as bathing, preparing meals, shopping, managing finances, etc.?: No Are you currently unemployed and looking for a job?: No Are you interested in more education?: No Please select the resources that you would like help with: None Currently or been in a relationship where the following occur: No concerns reported THRIVE Score: 0 AUDIT C Alcohol Use Questionnaire (AUDIT-C) 1. How often do you have a drink containing alcohol?: 2-3 times a week 2. How many drinks containing alcohol do you have on a typical day when you are drinking?: 10 or more 3. How often do you have six or more drinks on one occasion?: Less than monthly Total Score: 8 TAMIE-7 AMB Questionnaire TAMIE-7 Date TAMIE - 7 assessed: 09/30/24 Feeling nervous, anxious, or on edge: 0 = Not at all Not being able to stop or control worryin = Not at all Worrying too much about different things: 0 = Not at all Trouble relaxin = Not at all Being so restless that it is hard to sit still: 0 = Not at all Becoming easily annoyed or irritable: 0 = Not at all Feeling afraid as if something awful might happen: 0 = Not at all Total TAMIE-7 score (0-4 normal; 5-9 mild; 10-14 moderate; 15-21 severe): 0 Source: Developed by Drs. Ricardo Love, Stephanie Javier, Yobayn Victor and colleagues, with an educational ernestine from [employer]. Review of Systems Const Denies body aches, Denies chills, Denies fever(s), Denies headache(s) and Denies poor appetite Eyes Reports no additional complaints ENT Denies dysphagia, Denies dizziness, Denies headache(s) and Denies odynophagia Card Denies chest pain, Denies syncope, Denies edema, Denies irregular heart rhythm, Denies lightheadedness and Denies dyspnea Resp Denies cough and Denies dyspnea GI Denies abdominal pain, Denies constipation, Denies dysphagia, Denies diarrhea, Denies nausea, Denies odynophagia and Denies vomiting Reports no additional complaints Musc Reports no additional complaints and Denies abnormal gait Skin/Breast Reports system reviewed and no additional complaints, except as documented Neuro Denies abnormal gait, Denies dizziness, Denies syncope and Denies headache(s) Psych Reports no additional complaints Physical exam (Primary Care) Vital Signs: Last Vital Signs Pulse 86 09/30/24 09:11 BP 150/90 H 09/30/24 09:11 Pulse Ox 93 09/30/24 09:11 Oxygen Delivery Method Room Air 09/30/24 09:11 BMI result Body Mass Index 40.6 Tobacco/Smoking Status: Tobacco use Status Tobacco use date assessed 09/30/24 09/30/24 09:12 Patient Tobacco Use Status Current everyday Tobacco 09/30/24 09:12 Tobacco use type Cigarette 09/30/24 09:12 e-Cigarette/Vaping Use Never Used 09/30/24 09:12 PHQ-9: PHQ-9 Score PHQ-9: Total score 09/30/24 09:29 Thrive Assessment: Date of Thrive Assessment Date Thrive assessed 09/30/24 09/30/24 09:12 Currently or been in a relationship where the following occur: No concerns reported Const General: cooperative, healthy appearing, comfortable and no acute distress Orientation/consciousness: patient oriented x3 [facility] Head: Yes normocephalic Ears: hearing grossly normal bilaterally General nose exam: Normal external nose present Eyes General: appearance normal, both eyes and all related structures Conjunctivae: conjunctivae normal Neck Neck: Yes full ROM and Yes no lymphadenopathy Resp Effort & Inspection: normal respiratory effort Auscultation: clear to auscultation bilaterally, no crackles, no rales, no rhonchi and no wheezes Cardio Rate: regular rate Rhythm: regular rhythm Skin General skin exam: no rashes or lesions noted Neuro General: patient oriented x3 Gait exam (Neuro): Normal gait present Extrem General: Yes normal to inspection, Yes full ROM and No edema Psych Affect: normal affect Attitude: cooperative Insight: Good insight present (Psych) Judgement: Good judgement present (Psych) Results AMB Hemoglobin A1c AMB Hemoglobin A1c 6.4 % Last Edit by VICENTE Diamond on 09/30/24 09 :29 Results Reviewed Results Reviewed: Laboratory Last Values Hgb A1c (Clinic) 6.4 % (4.0-6.0) H 09/30/24 09:22 Coding Level of Care Code Est Pt Level 4 (43415) Diagnoses GERD (gastroesophageal reflux disease) K21.9 Hypercholesterolemia E78.00 EDUARDO (obstructive sleep apnea) G47.33 Primary hypertension I10 Hypertension type: primary hypertension CVA (cerebral vascular accident) I63.9 Stage 3b chronic kidney disease N18.32 Chronic kidney disease stage 3 subtype: stage 3b (GFR 30-44) Uncontrolled type 2 diabetes mellitus with hyperglycemia, with long-term current use of insulin E11.65; Z79.4 Morbid obesity E66.01 Additional Codes PHQ-9 - 94736 - PHQ-9 Billing: Yes ([id number]) Assessment & Plan Assessment & Plan (1) GERD (gastroesophageal reflux disease): Code(s): K21.9 - Gastro-esophageal reflux disease without esophagitis Category: Medical Plan: Avoid trigger foods such as citrus, tomato products, soda, caffeine, spicy foods and other foods that may be irritating to your stomach. Avoid laying flat 3-4 hours after eating and elevate the head of the bed 30 degrees to prevent acid from moving into the esophagus. (2) Hypercholesterolemia: Code(s): E78.00 - Pure hypercholesterolemia, unspecified Category: Medical Plan: Avoid foods that are high in cholesterol such as red meat, fried foods, eggs and baked goods. Triglyceride goal of less than 150 and LDL goal of less than 70. Continue on rosuvastatin (3) EDUARDO (obstructive sleep apnea): Code(s): G47.33 - Obstructive sleep apnea (adult) (pediatric) Category: Medical Plan: Patient not currently using CPAP it was advised that he has severe obstructive sleep apnea requiring CPAP therapy. Referral placed to sleep medicine. (4) Hypertension: Code(s): I10 - Essential (primary) hypertension Category: Medical Qualifiers: Hypertension type: primary hypertension Qualified Code(s): I10 - Essential (primary) hypertension Plan: Patient has not been taking his lisinopril-hydrochlorothiazide as he believed his sustainment logistics analyst told him to discontinue this medication. Per Nephrology last note sustainment logistics analyst aware he is on PERRY inhibitor and no advised to discontinue at this time. Advised patient to restart this medication unless otherwise instructed by sustainment logistics analyst. Avoid salt intake and encourage healthy diet and re gular exercise. (5) CVA (cerebral vascular accident): Comment: Chronic appearing lacunar infarct within the anterior limb of the right internal capsule and adjacent caudate nucleus and mild scattered subcortical and periventricular white matter chronic microangiopathic ischemic changes. These findings are new compared with 10/26/2019 and could correlate with hypertensive or diabetic microangiopathic ischemic disease. 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 09/2022 Code(s): I63.9 - Cerebral infarction, unspecified Category: Medical Plan: Advised good control of blood pressure, cholesterol and blood sugars. 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 (6) CKD (chronic kidney disease) stage 3, GFR 30-59 ml/min: Code(s): N18.30 - Chronic kidney disease, stage 3 unspecified Category: Medical Qualifiers: Chronic kidney disease stage 3 subtype: stage 3b (GFR 30-44) Qualified Code(s): N18.32 - Chronic kidney disease, stage 3b Plan: Continue to avoid kidney irritants and stay well hydrated. Following with sustainment logistics analyst and has follow up next month. (7) Uncontrolled type 2 diabetes mellitus with hyperglycemia, with long-term current use of insulin: Code(s): E11.65 - Type 2 diabetes mellitus with hyperglycemia; Z79.4 - group home (current) use of insulin Category: Medical Plan: Decrease the amount of carbohydrates such as pasta, bread, rice, and potatoes and limit the amount of sweets. Although fruits are generally healthy they should be eaten in moderation as they are still high in sugar. Hemoglobin A1c goal of less than 7%. A1c 6.4% in the office today. Has follow up with endocrinology tomorrow and later this week. Advised patient to have 3 sq meals daily to avoid low blood sugars and follow recommendations from bottle inspector. (8) Morbid obesity: Code(s): E66.01 - Morbid (severe) obesity due to excess calories Category: Medical Plan: Healthy diet and regular exercise is encouraged. Plan This note was constructed using voice recognition software. While every effort has been made to ensure accuracy and sports nutritionist, still areas may have been included sometimes these areas may affect the content or meeting of the given symptoms. Total time spent caring for the patient today was 20 minutes. This includes time spent before the visit reviewing the chart, time spent during the visit, and time spent after the visit and documentation. Orders: Orders AMB Hemoglobin A1c Today Z13.9 - Encounter for screening, unspecified Referrals Sleep Medicine Referral G47.33 - Obstructive sleep apnea (adult) (pediatric) Medications: Refilled lisinopril-hydrochlorothiazide 10-12.5 mg 1 tab PO DAILY 90 tabs 1RF I10 - Essential (primary) hypertension aspirin (Adult Low Dose Aspirin) 81 mg PO DAILY 30 tabs 0RF I63.9 - Cerebral infarction, unspecified
== END 2024-09-30 10:06 | disposition home or self-care (01) ==
PROVIDERS: PCP Internal Medicine
DX: I12.9 Hypertensive chronic kidney disease with stage 1 through stage 4 chronic kidney disease, or unspecified chronic kidney disease (principal); E11.65 Type 2 diabetes mellitus with hyperglycemia; N18.32 Chronic kidney disease, stage 3b; E66.01 Morbid (severe) obesity due to excess calories; Z79.4 Long term (current) use of insulin; Z68.41 Body mass index [BMI] 40.0-44.9, adult; K21.9 Gastro-esophageal reflux disease without esophagitis; E78.00 Pure hypercholesterolemia, unspecified; G47.33 Obstructive sleep apnea (adult) (pediatric); Z86.73 Personal history of transient ischemic attack (TIA), and cerebral infarction without residual deficits

== ENCOUNTER → 2024-09-30 08:59 | Outpatient (BNVA) | payer OTHER, SELFPAY | PROVIDERS: PCP Internal Medicine | DX: K21.9 Gastro-esophageal reflux disease without esophagitis (principal); I12.9 Hypertensive chronic kidney disease with stage 1 through stage 4 chronic kidney disease, or unspecified chronic kidney disease; E11.22 Type 2 diabetes mellitus with diabetic chronic kidney disease; N18.32 Chronic kidney disease, stage 3b; E78.00 Pure hypercholesterolemia, unspecified; G47.33 Obstructive sleep apnea (adult) (pediatric); I63.9 Cerebral infarction, unspecified; E11.65 Type 2 diabetes mellitus with hyperglycemia; E66.01 Morbid (severe) obesity due to excess calories; Z79.4 Long term (current) use of insulin | CPT/HCPCS: 83036; 96127; 99212 ==

== ENCOUNTER 2024-10-05 08:43 | Outpatient (AMB) | payer OTHER, SELFPAY ==
--- NOTE | 2024-10-05 08:44 | MHC.OFFVIS ---
Vital Signs 10/05/24 08:47 Height 5 ft 11 in Weight 291 lb 0.163 oz BMI 40.6 BP 146/84 H Blood Pressure Location Rt brachial Position Sitting Pulse 88 Pulse Source Pulse Oximeter Intake Visit Reasons: T2DM/Confirmed Intake Note: Patient present today to follow up on Type 2 Diabetes Mellitus. Last Diabetic Eye exam: Due, requesting referral. 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 The patient last saw or YEE Byers on 05/11/2024 Endo: He was 1st diagnosed with diabetes last week per pt. He is currently on Trulicity 1.5 mg weekly, Jardiance 10 mg not taking . Glipizide 5 mg QD Lantus 14 units . Gael download shows CGMS active 96% of the time. Average glucose is 138 with G mi of 6.6% and stage standard deviation of 27.8%. 87% in target range with 13% hyperglycemia and no hypoglycemia He has several episodes of hypoglycemia several times a wk Last ophthalmologic visit was He denies any family history type 2 diabetes or diabetes in general.. [facility] Medical History Opioid use disorder Cervical pain (neck) LFT elevation Impaired fasting blood sugar Numbness of right hand Sexually transmitted disease exposure Polysubstance abuse Osteoarthritis COPD (chronic obstructive pulmonary disease) Peripheral vascular disease History of renal calculi Anxiety and depression Tobacco abuse Insomnia Obesity (BMI 30-39.9) EDUARDO (obstructive sleep apnea) Hypercholesterolemia Vitamin D deficiency Surgical History History of extraction of renal calculus History of repair of rotator cuff Family History Father Medical history unknown Mother Seizure CVD (cerebrovascular disease) Hypertension Mental health disorder Brother Hypertension Diabetes Asthma Substance use disorder CVD (cerebrovascular disease) Son Murder Maternal Aunt Schizophrenia Social History Housing: Other Alcohol intake: current Alcohol intake frequency: a few times a month Patient Tobacco Use Status: Current everyday Tobacco user Tobacco use type: Cigarette Cigarette Packs Per Day: 1 Cigarettes Per Day: 8 e-Cigarette/Vaping Use: Never Used Second Hand Smoke Exposure: Yes service: No Current occupational status: unemployed Cognitive needs: No Hearing needs: No Vision needs: Yes Physical Exam Absence of Cushingoid features. Absence of acromegalic features. Neck exam reveals nl size thyroid about 15 gms. No thyroid nodules palpable. No carotid bruits present. Lungs CTA. Heart S1 S2, Reg R/R. No M/R/ G. Skin exam reveals absence of vitiligo or acanthosis nigricans. Abdominal exam reveals Soft NT/ND with NA BS. No organomegaly present. Neck Other: . Extrem Other: Foot examination revealed the absence of open lesions or calluses. I did not perform a microfilament or tuning fork test for sensation or vibratory sense respectively on this visit Assessment & Plan Assessment & Plan (1) Type 2 diabetes mellitus with hyperglycemia: Code(s): E11.65 - Type 2 diabetes mellitus with hyperglycemia Category: Medical Plan: This is a 58-year-old male with a history of type 2 diabetes treated with Trulicity, Jardiance, glipizide and basal insulin with excellent improved glycemic control and known macrovascular macrovascular complications namely prior AK, prior CVA, fatty and CKD Plan is to discontinue glipizide. Adjustments to the basal insulin may need to be made as well if continued hypoglycemia occurs. Will increase the rosuvastatin to 40 mg q.d recheck lipid profile in 6 weeks. Will have patient follow up with YEE Byers in 3 months. Also referred patient to Ophthalmology. Orders: Orders Lipid Panel 6 Weeks E11.65 - Type 2 diabetes mellitus with hyperglycemia, E78.00 - Pure hypercholesterolemia, unspecified Referrals Ophthalmology Referral E11.65 - Type 2 diabetes mellitus with hyperglycemia Medications: New rosuvastatin 40 mg PO DAILY 30 tabs 1RF Discontinued rosuvastatin Discontinued Reason: Doctor's Order 20 mg PO DAILY 90 tabs 0RF glipizide ER Discontinued Reason: Doctor's Order 5 mg PO DAILY 90 tabs 0RF Coding Level of Care Code Est Pt Level 4 (86279) Diagnoses Type 2 diabetes mellitus with hyperglycemia E11.65
[2024-10-05 08:47] VITALS: BP 146/84; PULSE 88; BMI 40.6
[2024-10-05 08:57] LABS: Glucose, Whole Blood 182 mg/dL (60-115)
== END 2024-10-05 09:07 | disposition home or self-care (01) ==
PROVIDERS: PCP Internal Medicine; Visit Provider Physician Assistant
DX: E11.65 Type 2 diabetes mellitus with hyperglycemia (principal)

== ENCOUNTER → 2024-10-05 08:43 | Outpatient (BNVA) | payer OTHER, SELFPAY | PROVIDERS: PCP Internal Medicine; Visit Provider Physician Assistant | DX: E11.65 Type 2 diabetes mellitus with hyperglycemia (principal) | CPT/HCPCS: 82947; 99212 ==

== ENCOUNTER 2024-10-30 10:29 | Outpatient (AMB) | payer OTHER, SELFPAY ==
--- NOTE | 2024-10-30 10:51 | HO.NEPHOV ---
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 He sees [facility] [place] endocrinology & was seen on 06/01/2024 & no change to medication regimen was made. He claims to have better blood sugar control. He denies nausea, vomiting, diarrhea, orthostatic symptoms, renal calculi, chest pain , SOB, PND, orthopnea, hematuria or any other systemic complaints. [facility] Medical History Opioid use disorder Cervical pain (neck) LFT elevation Impaired fasting blood sugar Numbness of right hand Sexually transmitted disease exposure Polysubstance abuse Osteoarthritis COPD (chronic obstructive pulmonary disease) Peripheral vascular disease History of renal calculi Anxiety and depression Tobacco abuse Insomnia Obesity (BMI 30-39.9) EDUARDO (obstructive sleep apnea) Hypercholesterolemia Vitamin D deficiency Surgical History History of extraction of renal calculus History of repair of rotator cuff Family History Father Medical history unknown Mother Seizure CVD (cerebrovascular disease) Hypertension Mental health disorder Brother Hypertension Diabetes Asthma Substance use disorder CVD (cerebrovascular disease) Son Murder Maternal Aunt Schizophrenia Social History Housing: Other Alcohol intake: current Alcohol intake frequency: a few times a month Patient Tobacco Use Status: Current everyday Tobacco user Tobacco use type: Cigarette Cigarette Packs Per Day: 1 Cigarettes Per Day: 8 e-Cigarette/Vaping Use: Never Used Second Hand Smoke Exposure: Yes service: No Current occupational status: unemployed Cognitive needs: No Hearing needs: No Vision needs: Yes Review of Systems Const All systems reviewed & are unremarkable except as noted in HPI and below Physical Exam Vital Signs: Last Vital Signs BP 140/100 H 10/30/24 10:52 BMI result Body Mass Index 39.7 Const General: comfortable and no acute distress Orientation/consciousness: patient oriented x3 HEENT Head: Yes normocephalic Mouth: Normal oral and palatal mucosa present Eyes EOM: EOMs intact bilaterally Neck Neck: Yes supple Resp Auscultation: clear to auscultation bilaterally Cardio Jugular venous distension: no JVD Rate: regular rate GI Palpation (GI): Soft to palpation Auscultation: normal bowel sounds General: Yes no CVA tenderness Back/Spine/Pelvis Back: no CVA tenderness Skin General skin exam: no rashes or lesions noted Neuro General: patient oriented x3 and moves all extremities Extrem General: Yes no pedal edema Results Reviewed Nephrology Results: Urine Protein Negative mg/dL (Neg-Trace) 09/11/24 Renal US 09/04/24 Assessment & Plan Assessment & Plan (1) CKD (chronic kidney disease) stage 3, GFR 30-59 ml/min: Code(s): N18.30 - Chronic kidney disease, stage 3 unspecified Category: Medical Qualifiers: Chronic kidney disease stage 3 subtype: stage 3b (GFR 30-44) Qualified Code(s): N18.32 - Chronic kidney disease, stage 3b Plan Jose E had HARESH on CKD due to tubular injury due to ongoing cocaine abuse. His last serum creatinine is marginally better. GN was in the differential, unlikely given current labs. 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 He is on ACEI. He should maintain good hydration, avoid cocaine as well as excess NSAID use. His urine out put is good. All these have been explained in detail. He may need a renal biopsy. Further management is pending evolving data. F/U given Orders: Orders Protein Creatinine Ratio, Ur Today N18.32 - Chronic kidney disease, stage 3b Creatinine Today N18.32 - Chronic kidney disease, stage 3b ANCA Vasculitides Today N18.32 - Chronic kidney disease, stage 3b UA and rflx microscopic Today N18.32 - Chronic kidney disease, stage 3b Blood Urea Nitrogen Today N18.32 - Chronic kidney disease, stage 3b Electrolytes Today N18.32 - Chronic kidney disease, stage 3b Coding Level of Care Code Est Pt Level 4 (26739) Diagnoses Stage 3b chronic kidney disease N18.32 Chronic kidney disease stage 3 subtype: stage 3b (GFR 30-44)
[2024-10-30 10:52] VITALS: BP 140/100; BMI 39.7
== END 2024-10-30 11:14 | disposition home or self-care (01) ==
PROVIDERS: PCP Internal Medicine; Visit Provider Internal Medicine Nephrology
DX: N18.32 Chronic kidney disease, stage 3b (principal)
CPT/HCPCS: 99214

== ENCOUNTER 2024-10-30 10:29 | Outpatient (REF) | payer OTHER, SELFPAY ==
[2024-10-30 12:26] LABS: Appearance Urine Clear; Color Urine Dark Yellow; Glucose Urine UA Negative (Negative); Leukocyte Esterase Urine Trace (Negative); Nitrite Urine Negative (Negative); Specific Gravity - Urine 1.025 (1.005-1.025); UMIC TRIGGER UA YES; Urine Blood Negative (Negative); Urine Ketones Trace mg/dL (Negative); Urine Protein 30 (1+) mg/dL (Neg-Trace)
[2024-10-30 12:42] LABS: Bacteria Urine None Seen (None Seen); RBC Urine 0-2 /HPF (0-2); Squamous Epithelial Cell Urine 0-2 /HPF (0-2); WBC Urine 0-5 /HPF (0-5)
[2024-10-30 12:45] LABS: Anion Gap 15 (12-20); Blood Urea Nitrogen 18 mg/dL (9-16); Carbon Dioxide 24 mmol/L (22-29); Chloride 104 mmol/L (96-108); Estimated Glomerular Filt Rate > 60; Potassium 4.8 mmol/L (3.3-5.1); Sodium 138 mmol/L (135-145)
[2024-10-30 13:19] LABS: Creatinine Urine 243.06 mg/dL; Protein/Creatinine Ratio, Ur 0.18 (<0.2); Total Protein Urine Random 43 mg/dL (<12)
[2024-11-04 08:48] LABS: Myeloperoxidase Antibody <1.0 AI; Proteinase 3 PR3 Antibodies <1.0 AI
== END 2024-10-30 10:30 | disposition home or self-care (01) ==
LOC: HO.LAB 10:29
PROVIDERS: PCP Internal Medicine; Visit Provider Internal Medicine Nephrology
DX: N17.9 Acute kidney failure, unspecified (principal); N18.9 Chronic kidney disease, unspecified; N18.32 Chronic kidney disease, stage 3b; Z79.899 Other long term (current) drug therapy
CPT/HCPCS: 36415; 80051; 81001; 82565; 82570; 84156; 84520; 86021; 99212

== ENCOUNTER 2024-11-04 14:01 | Outpatient (REF) | payer OTHER, SELFPAY | END 2024-11-04 14:02 | disposition home or self-care (01) | LOC: HO.HKASLDS 14:01 | PROVIDERS: PCP Internal Medicine; Visit Provider Physician Assistant Medical | DX: G47.9 Sleep disorder, unspecified (principal); R53.83 Other fatigue | CPT/HCPCS: 99202 ==

== ENCOUNTER 2024-11-04 14:01 | Outpatient (AMB) | payer OTHER, SELFPAY ==
[2024-11-04 14:04] VITALS: BMI 39.2
--- NOTE | 2024-11-04 14:04 | A.OFFVIS_ITS ---
Vital Signs 11/04/24 14:04 Height 5 ft 11 in Weight 281 lb BMI 39.2 Intake Visit Reasons: INP-EDUARDO Intake Note: Patient presents for EDUARDO. diagnosed about 10+years ago. does not own a machine. Allergies soybean Allergy (Mild, Verified 11/04/24 14:08) hives No Known Drug Allergies Allergy (Unknown, Verified 11/04/24 14:08) none seasonal Allergy (Mild, Uncoded 11/04/24 14:08) congestion HPI Comments Details: 59 year old r. handed male referred to us for sleep evaluation. He wakes up in the middle of the night and feels like he is drowning. He gasps for air and snores loudly. He has fatigue most of the day despite daily naps. He has EDUARDO, was diagnosed about 7 years ago with a PSG and somehow lost track of his machine. He goes to sleep between 11pm and 2am, he gets up at 8am to noon, with 4-5 bathroom breaks. He had a stroke 2 years ago 01/2023, he fell down the stairs. Headaches frontal to the occipital area 3x a week, mild and go away with naps, sometimes he takes aspirin otc and goes away. He complains of Restless leg syndrome, ankles are swollen and hurts to walk. He denies numbness, burning, tingling, spasms, or cramps in feet. BP is 140/100 10/30/2024 - he forgets to take his BP medication. He smokes about 1/2 a pack a day which has improved from 1.5 packs per day. He uses cocaine daily, and would like intervention with BHN and therapy. His mood is stable. His memory and diet is poor, his primary care pediatrician Perla is here with him today and she brings him food and takes care of him. [facility] Medical History Opioid use disorder Cervical pain (neck) LFT elevation Impaired fasting blood sugar Numbness of right hand Sexually transmitted disease exposure Polysubstance abuse Osteoarthritis COPD (chronic obstructive pulmonary disease) Peripheral vascular disease History of renal calculi Anxiety and depression Tobacco abuse Insomnia Obesity (BMI 30-39.9) EDUARDO (obstructive sleep apnea) Hypercholesterolemia Vitamin D deficiency Surgical History History of extraction of renal calculus History of repair of rotator cuff Family History Father Medical history unknown Mother Seizure CVD (cerebrovascular disease) Hypertension Mental health disorder Brother Hypertension Diabetes Asthma Substance use disorder CVD (cerebrovascular disease) Son Murder Maternal Aunt Schizophrenia Social History Housing: Other Alcohol intake: current Alcohol intake frequency: a few times a month Patient Tobacco Use Status: Current everyday Tobacco user Tobacco use type: Cigarette Cigarette Packs Per Day: 1 Cigarettes Per Day: 8 e-Cigarette/Vaping Use: Never Used Second Hand Smoke Exposure: Yes service: No Current occupational status: unemployed Cognitive needs: No Hearing needs: No Vision needs: Yes Review of Systems Const All systems reviewed & are unremarkable except as noted in HPI and below Physical Exam Vital Signs: BMI result Body Mass Index 39.2 Const General: cooperative, comfortable and no acute distress Nutritional Appearance: obese (BMI is 39) Orientation/consciousness: patient oriented x3 HEENT Teeth and gingiva: other ([place] score of 4) Eyes Pupils: Equal, round and reactive pupils present Neck Neck: Yes full ROM Resp Effort & Inspection: normal respiratory effort and able to speak in complete sentences Neuro General: patient oriented x3 and moves all extremities Cranial nerves: Yes CN's II-XII intact bilaterally, Yes Facial sensation intact/muscles of mastication intact, Yes Equal, round and reactive pupils present, Yes Normal accommodation reflex present, Yes Bilaterally intact EOM present, Yes Normal facial strength present, Yes Midline tongue present, Yes Ability to bilaterally rotate head present and Yes Ability to bilaterally elevate shoulders present Gait exam (Neuro): Normal gait present Motor exam (neuro): 5/5 motor strength present throughout Deep tendon reflexes (DTR's): Right triceps reflex intensity grade: 2+, Left triceps reflex intensity grade: 2+, Rt Biceps (C5, C6): 2+, Left biceps reflex intensity grade: 2+, Right brachioradialis reflex intensity grade: 2+, Left brachioradialis reflex intensity grade: 2+, Right patellar reflex intensity grade: 2+ and Left patellar reflex intensity grade: 2+ Psych Appearance: well kempt Speech and movement: Slowed movement present (Neuro) Affect: Blunted affect present Attitude: cooperative Results Reviewed Results Reviewed: 01/2023 CT Scan IMPRESSION: New area of right caudate nucleus hypodensity since the previous exam. Question acute versus old infarct. There is hypodensity along the anterior limb of right internal capsule which is unchanged likely chronic infarct. No acute intracranial bleed. No acute fracture, dislocation or subluxation seen the cervical spine. Small bone density of the tip of C2 dense likely an old fracture or an osteophyte. The prevertebral soft tissues are normal. 03/2023 MRI 1. No acute intracranial abnormality. 2. Moderate chronic white matter microangiopathy. Chronic lacunar infarct in the right caudate nucleus. Assessment & Plan Assessment & Plan (1) Excessive daytime sleepiness: Code(s): G47.19 - Other hypersomnia Category: Medical (2) Excessive daytime sleepiness: Code(s): G47.19 - Other hypersomnia Category: Medical Plan PSG to evaluate for EDUARDO as patient is on 2 inhalers will evaluate. Labs to r/o deficiencies Cocaine addiction referral to [facility] with therapy. Orders: Orders IRON PROFILE Today G47.9 - Sleep disorder, unspecified, R53.83 - Other fatigue Vitamin B12 and Folate Today G25.81 - Restless legs syndrome Ferritin Today G47.19 - Other hypersomnia RT PSG in-lab sleep study Today G47.19 - Other hypersomnia Vitamin D 25-OH Total Today G47.19 - Other hypersomnia Methylmalonic Acid Today G47.9 - Sleep disorder, unspecified, R53.83 - Other fatigue Homocysteine Today G25.81 - Restless legs syndrome Referrals Psychiatry Outpatient Consultation Service F14.20 - Cocaine dependence, uncomplicated Patient Instructions: Monitor BP, the #1 RF to avoid CV events is HTN, Walking daily and eating a DASH Diet or a Mediterranean Diet can lower salt and lower BP. Sleep hygiene, set a regimented time to sleep and wake up in the morning. No d evices in bed. Limit fluids 2 hours prior to bed. Coding Level of Care Code New Pt Level 4 (69820) Complex EM visit Add On G2211 Diagnoses Excessive daytime sleepiness G47.19 Time Spent (min) 35 Comment Evaluation Sleep Questionnaire Difficulty falling asleep: Yes Difficulty staying asleep?: Yes Number of arousals: 4-5 Snoring: Yes Witnessed apneas: Yes Gasping arousals: Yes Nocturia: Yes GERD: Yes Vivid dreams: No Acting out dreams: No Abnormal behavior in sleep: No Abnormal movements in sleep: No Morning headaches: Yes Excessive daytime sleepiness: Yes Daytime naps: Yes Restless legs: Yes Hallucinations: No Sleep paralysis: Yes Drop attacks: Yes Sleep Study: Yes (>7 years ) CPAP: No
== END 2024-11-04 15:11 | disposition home or self-care (01) ==
PROVIDERS: PCP Internal Medicine; Visit Provider Physician Assistant Medical
DX: G47.19 Other hypersomnia (principal)
CPT/HCPCS: 99204; G2211

== ENCOUNTER 2024-11-06 08:33 | Outpatient (AMB) | payer OTHER, SELFPAY ==
[2024-11-06 08:43] VITALS: BP 142/92; PULSE 89; O2SAT 94; BMI 39.4
--- NOTE | 2024-11-06 08:43 | A.OFFVIS_ITS ---
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 Accompanied by: Self / Same As Patient Allergies soybean Allergy (Mild, Verified 11/06/24 08:48) hives No Known Drug Allergies Allergy (Unknown, Verified 11/06/24 08:48) none seasonal Allergy (Mild, Uncoded 11/06/24 08:48) congestion Medication List - Last Reconciled 11/06/24 by Alice Dong PA-C albuterol sulfate 90 mcg/actuation (Proventil HFA) 2 puffs inhalation Q4-6H PRN aspirin (Adult Low Dose Aspirin) 81 mg PO DAILY blood pressure monitor (Blood Pressure Kit) As directed blood sugar diagnostic (FreeStyle Lite Strips) Use daily As directed to check blood glucose blood-glucose meter (FreeStyle Lite Meter kit) Use daily As directed to check blood sugars blood-glucose meter,continuous (FreeStyle Gael 3 [place]) Use daily As directed to monitor blood glucose blood-glucose sensor (FreeStyle Gael 3 Sensor device) Apply every 14 days As directed to monitor blood glucose [CANE As directed] clotrimazole 1% 1 appl topical BID 4 weeks diclofenac sodium 1% (Voltaren Arthritis Pain) 4 grams topical QID dulaglutide (Trulicity) 1.5 mg (0.5 mL) subcut QWEEK insulin glargine (Lantus Solostar U-100 Insulin) 14 units (0.14 mL) subcut QAM 30 days lancets (OneTouch Delica Plus Lancet) As directed lancets (FreeStyle Lancets) use daily as directed to check blood glucose lisinopril-hydrochlorothiazide 10-12.5 mg 1 tab PO DAILY miconazole nitrate 2% (Zeasorb AF) 1 appl topical BID mometasone-formoterol 200-5 mcg/actuation (Dulera) 2 puffs inhalation BID omeprazole 20 mg PO DAILY 90 days peg 3350-electrolytes 236-22.74-6.74 -5.86 gram (Golytely) 240 mL PO Q10M 1 day pen needle, diabetic (BD Ultra-Fine Short Pen Needle) Use daily As directed to administer insulin rosuvastatin 40 mg PO DAILY sertraline 25 mg PO BEDTIME tiotropium bromide 2.5 mcg/actuation (Spiriva Respimat) 2 puffs inhalation QAM 30 days trazodone 100 mg PO BEDTIME PRN HPI HPI T2DM: Details: Patient is a 58-year-old male with a significant past medical history substance abuse, prior [place], prior CVA, fatty liver, uncontrolled type 2 diabetes, hypertension, hyperlipidemia, COPD, tobacco use, EDUARDO on CPAP, obesity and GERD presenting today for a follow-up regarding his diabetes. He is still actively using cocaine daily. States that he is trying to cut back and does have the phone number to addiction Medicine just is not ready to call them. Endo: His A1c was 6.4. He was 1st diagnosed with diabetes this past year in 2023. He is currently on Trulicity 1.5 mg weekly, QD Lantus 10 units. -he states he initially made this appointment after getting low blood sugars following his appointment with Dr. Swain when he was increased on the Lantus. Since decreasing the Lantus to 10 units he has not had any hypoglycemic events. He has been off of his medications for the last few weeks with the increased drug use but for the last 3 days has been compliant. He does not think he has missed any Trulicity doses but has missed the Lantus. CGM download today- shows that he is in range 68 %, hyperglycemic 32%. -Jardiance was too expensive. At his last visit last month he was d/c'd on glipizide He denies any episodes of hypoglycemia-states that he uses candy and soda to correct low blood sugars He was previously referred to ophthalmology. CV: Blood pressure today in the office is 142/92. He is currently on lisinopril/hydrochlorothiazide 10/12.5 mg. States he has been on the medication for the last 3 or 4 days. Last few office visits bps have been elevated. Currently on Crestor 40 mg. Last lipids were not quite at goal so this was increased at last visit. Nephro: follows with nephrololgy and was seen last week following an HARESH on CKD. COUNT INCLUDES THE [facility] Medical History Opioid use disorder Cervical pain (neck) LFT elevation Impaired fasting blood sugar Numbness of right hand Sexually transmitted disease exposure Polysubstance abuse Osteoarthritis COPD (chronic obstructive pulmonary disease) Peripheral vascular disease History of renal calculi Anxiety and depression Tobacco abuse Insomnia Obesity (BMI 30-39.9) EDUARDO (obstructive sleep apnea) Hypercholesterolemia Vitamin D deficiency Surgical History History of extraction of renal calculus History of repair of rotator cuff Family History Father Medical history unknown Mother Seizure CVD (cerebrovascular disease) Hypertension Mental health disorder Brother Hypertension Diabetes Asthma Substance use disorder CVD (cerebrovascular disease) Son Murder Maternal Aunt Schizophrenia Social History Housing: Other Alcohol intake: current Alcohol intake frequency: a few times a month Patient Tobacco Use Status: Current everyday Tobacco user Tobacco use type: Cigarette Cigarette Packs Per Day: 1 Cigarettes Per Day: 8 e-Cigarette/Vaping Use: Never Used Second Hand Smoke Exposure: Yes service: No Current occupational status: unemployed Cognitive needs: No Hearing needs: No Vision needs: Yes Physical Exam Const Orientation/consciousness: patient oriented x3 HEENT Ears: hearing grossly normal bilaterally Neck Thyroid: Thyroid normal Lymphatic: no lymphadenopathy noted Resp Auscultation: clear to auscultation bilaterally Cardio Rate: regular rate Rhythm: regular rhythm Heart sounds: S1 normal heart sound present and S2 normal heart sound present GI Inspection: Yes normal to inspection Palpation (GI): Soft to palpation and Other GI palpation findings present (nontender, no cva tenderness) Auscultation: normoactive bowel sounds Rectal Exam - Male: Yes deferred Skin General skin exam: no rashes or lesions noted Neuro General: patient oriented x3, gait normal and no focal motor deficits Results Reviewed Results Reviewed: Laboratory Tests 09/11/24 09/30/24 10/30/24 07:47 09:22 11:40 Sodium Potassium Chloride Carbon Dioxide Anion Gap BUN Creatinine Estimated GFR Hgb A1c (Clinic) 6.4 H Triglycerides 74 Cholesterol 171 LDL Cholesterol, Calc 105 H HDL Cholesterol 52 U Random Total Protein 43 H Urine Creatinine 243.06 Protein/Creatinin Ratio 0.18 10/30/24 11:44 Sodium 138 Potassium 4.8 Chloride 104 Carbon Dioxide 24 Anion Gap 15 BUN 18 H Creatinine 1.21 Estimated GFR > 60 Hgb A1c (Clinic) Triglycerides Cholesterol LDL Cholesterol, Calc HDL Cholesterol U Random Total Protein Urine Creatinine Protein/Creatinin Ratio Assessment & Plan Assessment & Plan (1) Uncontrolled type 2 diabetes mellitus with hyperglycemia, with long-term current use of insulin: Code(s): E11.65 - Type 2 diabetes mellitus with hyperglycemia; 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 Again, reviewed complications associated with poorly controlled diabetes including risk of blindness, amputations, infections, heart disease, stroke, worsened kidney function etc.. Discussed the importance of compliance with his medications as noncompliance we will increase his risks of a significant adverse medical outcome. (2) CKD (chronic kidney disease) stage 3, GFR 30-59 ml/min: Code(s): N18.30 - Chronic kidney disease, stage 3 unspecified Category: Medical Qualifiers: Chronic kidney disease stage 3 subtype: stage 3b (GFR 30-44) Qualified Code(s): N18.32 - Chronic kidney disease, stage 3b Plan: Discussed the importance of controlling his blood pressure, blood sugars and not using street drugs. Advised to avoid NSAIDs and maintain hydration. This is being monitored by Nephrology. (3) Hypertension: Code(s): I10 - Essential (primary) hypertension Category: Medical Qualifiers: Hypertension type: primary hypertension Qualified Code(s): I10 - Essential (primary) hypertension Plan: increased lisinopril/hctz to 20 mg/12.5 mg Medications: New lisinopril-hydrochlorothiazide 20-12.5 mg 1 tab PO DAILY 90 tabs 0RF Changed From insulin glargine (Lantus Solostar U-100 Insulin) 14 units (0.14 mL) subcut QAM 30 days 4.2 mL 2RF To insulin glargine (Lantus Solostar U-100 Insulin) 10 units (0.1 mL) subcut QAM 30 days 15 mL 2RF Refilled dulaglutide (Trulicity) 1.5 mg (0.5 mL) subcut QWEEK 2 mL 11RF Discontinued lisinopril-hydrochlorothiazide 10-12.5 mg Discontinued Reason: Doctor's Order 1 tab PO DAILY 90 tabs 1RF I10 - Essential (primary) hypertension Coding Level of Care Code Est Pt Level 4 (87231) Complex EM visit Add On G2211 Diagnoses Uncontrolled type 2 diabetes mellitus with hyperglycemia, with long-term current use of insulin E11.65; Z79.4 Stage 3b chronic kidney disease N18.32 Chronic kidney disease stage 3 subtype: stage 3b (GFR 30-44) Primary hypertension I10 Hypertension type: primary hypertension
[2024-11-06 08:54] LABS: Glucose, Whole Blood 149 mg/dL (60-115)
== END 2024-11-06 09:03 | disposition home or self-care (01) ==
PROVIDERS: PCP Internal Medicine; Visit Provider Physician Assistant
DX: E11.65 Type 2 diabetes mellitus with hyperglycemia (principal); Z79.4 Long term (current) use of insulin; N18.32 Chronic kidney disease, stage 3b; I10 Essential (primary) hypertension

== ENCOUNTER → 2024-11-06 08:33 | Outpatient (BNVA) | payer OTHER, SELFPAY | PROVIDERS: PCP Internal Medicine; Visit Provider Physician Assistant | DX: E11.65 Type 2 diabetes mellitus with hyperglycemia (principal); Z79.4 Long term (current) use of insulin; I12.9 Hypertensive chronic kidney disease with stage 1 through stage 4 chronic kidney disease, or unspecified chronic kidney disease; E11.22 Type 2 diabetes mellitus with diabetic chronic kidney disease; N18.32 Chronic kidney disease, stage 3b | CPT/HCPCS: 82947; 99212 ==

== ENCOUNTER → 2024-11-24 19:30 | Outpatient (BNV) | payer OTHER, SELFPAY | PROVIDERS: PCP Internal Medicine; Visit Provider Psychiatry & Neurology Neurology | DX: G47.33 Obstructive sleep apnea (adult) (pediatric) (principal) | CPT/HCPCS: 95810 ==

== ENCOUNTER → 2024-11-24 19:30 | Outpatient (REF) | payer OTHER, SELFPAY | LOC: HO.SL 19:30 | PROVIDERS: PCP Internal Medicine; Visit Provider Physician Assistant Medical | DX: G47.19 Other hypersomnia (principal) | CPT/HCPCS: 95810 ==

== ENCOUNTER 2025-01-01 10:12 | Outpatient (AMB) | payer OTHER, SELFPAY ==
[2025-01-01 10:13] VITALS: BP 140/78; PULSE 106; O2SAT 95; BMI 39.5
--- NOTE | 2025-01-01 10:13 | HO.NEPHOV_ITS ---
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 He sees [facility] endocrinology. He claims to have better blood sugar control. He denies nausea, vomiting, diarrhea, orthostatic symptoms, renal calculi, chest pain , SOB, PND, orthopnea, hematuria or any other systemic complaints. He has a new diagnosis of EDUARDO and is going to go on CPAP. [facility] Medical History Opioid use disorder Cervical pain (neck) LFT elevation Impaired fasting blood sugar Numbness of right hand Sexually transmitted disease exposure Polysubstance abuse Osteoarthritis COPD (chronic obstructive pulmonary disease) Peripheral vascular disease History of renal calculi Anxiety and depression Tobacco abuse Insomnia Obesity (BMI 30-39.9) EDUARDO (obstructive sleep apnea) Hypercholesterolemia Vitamin D deficiency Surgical History History of extraction of renal calculus History of repair of rotator cuff Family History Father Medical history unknown Mother Seizure CVD (cerebrovascular disease) Hypertension Mental health disorder Brother Hypertension Diabetes Asthma Substance use disorder CVD (cerebrovascular disease) Son Murder Maternal Aunt Schizophrenia Social History Housing: Other Alcohol intake: current Alcohol intake frequency: a few times a month Patient Tobacco Use Status: Current everyday Tobacco user Tobacco use type: Cigarette Cigarette Packs Per Day: 1 Cigarettes Per Day: 8 e-Cigarette/Vaping Use: Never Used Second Hand Smoke Exposure: Yes service: No Current occupational status: unemployed Cognitive needs: No Hearing needs: No Vision needs: Yes Review of Systems Const All systems reviewed & are unremarkable except as noted in HPI and below Physical Exam Vital Signs: Last Vital Signs Pulse 106 H 01/01/25 10:13 BP 140/78 H 01/01/25 10:13 Pulse Ox 95 01/01/25 10:13 Oxygen Delivery Method Room Air 01/01/25 10:13 BMI result Body Mass Index 39.5 Const General: comfortable and no acute distress Orientation/consciousness: patient oriented x3 HEENT Head: Yes normocephalic Mouth: Normal oral and palatal mucosa present Eyes EOM: EOMs intact bilaterally Neck Neck: Yes supple Resp Auscultation: clear to auscultation bilaterally Cardio Jugular venous distension: no JVD Rate: regular rate GI Palpation (GI): Soft to palpation Auscultation: normal bowel sounds General: Yes no CVA tenderness Back/Spine/Pelvis Back: no CVA tenderness Skin General skin exam: no rashes or lesions noted Neuro General: patient oriented x3 and moves all extremities Extrem General: Yes no pedal edema Results Reviewed Nephrology Results: Sodium 138 mmol/L (135-145) 10/30/24 Potassium 4.8 mmol/L (3.3-5.1) 10/30/24 Chloride 104 mmol/L (96-108) 10/30/24 Carbon Dioxide 24 mmol/L (22-29) 10/30/24 BUN 18 mg/dL (9-16) H 10/30/24 Creatinine 1.21 mg/dL (0.5-1.4) 10/30/24 Urine Protein 30 (1+) mg/dL (Neg-Trace) H 10/30/24 Urine Creatinine 243.06 mg/dL 10/30/24 Protein/Creatinin Ratio 0.18 (<0.2) 10/30/24 Assessment & Plan Assessment & Plan (1) CKD (chronic kidney disease) stage 3, GFR 30-59 ml/min: Code(s): N18.30 - Chronic kidney disease, stage 3 unspecified Category: Medical Qualifiers: Chronic kidney disease stage 3 subtype: stage 3b (GFR 30-44) Qualified Code(s): N18.32 - Chronic kidney disease, stage 3b Plan Jose E had HARESH on CKD due to tubular injury due to ongoing cocaine abuse- resolved. His last serum creatinine is back to baseline. GN was in the differential, unlikely given current labs. 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 He is on ACEI. He should maintain good hydration, avoid cocaine as well as excess NSAID use. His urine out put is good. All these have been explained in detail. He does not need a renal biopsy now . F/U given Orders: Orders Protein Creatinine Ratio, Ur 4 Months N18.32 - Chronic kidney disease, stage 3b Creatinine 4 Months N18.32 - Chronic kidney disease, stage 3b Blood Urea Nitrogen 4 Months N18.32 - Chronic kidney disease, stage 3b Electrolytes 4 Months N18.32 - Chronic kidney disease, stage 3b Coding Level of Care Code Est Pt Level 4 (59192) Diagnoses Stage 3b chronic kidney disease N18.32 Chronic kidney disease stage 3 subtype: stage 3b (GFR 30-44)
== END 2025-01-01 10:38 | disposition home or self-care (01) ==
LOC: HO.HKA 10:12
PROVIDERS: PCP Internal Medicine; Visit Provider Internal Medicine Nephrology
DX: N18.32 Chronic kidney disease, stage 3b (principal)
CPT/HCPCS: 99214

== ENCOUNTER → 2025-01-01 10:12 | Outpatient (BNVA) | payer OTHER, SELFPAY | PROVIDERS: PCP Internal Medicine; Visit Provider Internal Medicine Nephrology | DX: E11.22 Type 2 diabetes mellitus with diabetic chronic kidney disease (principal); I12.9 Hypertensive chronic kidney disease with stage 1 through stage 4 chronic kidney disease, or unspecified chronic kidney disease; E78.5 Hyperlipidemia, unspecified; N18.32 Chronic kidney disease, stage 3b | CPT/HCPCS: 99212 ==

== ENCOUNTER 2025-01-04 11:33 | Outpatient (AMB) | payer OTHER, SELFPAY ==
[2025-01-04 11:34] VITALS: BP 162/98; PULSE 88; O2SAT 96; BMI 39.7
--- NOTE | 2025-01-04 11:34 | MHC.OFFVIS ---
Vital Signs 01/04/25 11:34 Height 5 ft 11 in Weight 284 lb 6.341 oz BMI 39.7 BP 162/98 H Blood Pressure Location Lt brachial Position Sitting Pulse 88 Pulse Source Pulse Oximeter Pulse Oximetry (%) 96 Oxygen Delivery Method Room Air Intake Visit Reasons: T2DM Intake Note: Patient present today for Type 2 Diabetes Mellitus Last Diabetic eye exam: About 2 years ago Last Podiatry Visit: Doesn't have one. 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 Accompanied by: Self / Same As Patient Allergies soybean Allergy (Mild, Verified 01/04/25 11:39) hives No Known Drug Allergies Allergy (Unknown, Verified 01/04/25 11:39) none seasonal Allergy (Mild, Uncoded 01/04/25 11:39) congestion Medication List - Last Reconciled 01/04/25 by Alice Dong PA-C albuterol sulfate 90 mcg/actuation (Proventil HFA) 2 puffs inhalation Q4-6H PRN aspirin (Adult Low Dose Aspirin) 81 mg PO DAILY blood pressure monitor (Blood Pressure Kit) As directed blood sugar diagnostic (FreeStyle Lite Strips) Use daily As directed to check blood glucose blood-glucose meter (FreeStyle Lite Meter kit) Use daily As directed to check blood sugars blood-glucose sensor (FreeStyle Gael 3 Sensor device) Apply every 14 days As directed to monitor blood glucose blood-glucose,life agent,cont (FreeStyle Gael 3 [place]) Use daily As directed to monitor blood glucose [CANE As directed] clotrimazole 1% 1 appl topical BID 4 weeks diclofenac sodium 1% (Voltaren Arthritis Pain) 4 grams topical QID insulin degludec (Tresiba FlexTouch U-100 insulin) 10 units (0.1 mL) subcut DAILY lancets (OneTouch Delica Plus Lancet) As directed lancets (FreeStyle Lancets) use daily as directed to check blood glucose lisinopril-hydrochlorothiazide 20-12.5 mg 1 tab PO DAILY miconazole nitrate 2% (Zeasorb AF) 1 appl topical BID mometasone-formoterol 200-5 mcg/actuation (Dulera) 2 puffs inhalation BID omeprazole 20 mg PO DAILY 90 days peg 3350-electrolytes 236-22.74-6.74 -5.86 gram (Golytely) 240 mL PO Q10M 1 day 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 He is still actively using cocaine daily. States that he is trying to cut back and states that he did call addiction Medicine and plans to go in on Saturday next week. Endo: His A1c is 7.2. He was 1st diagnosed with diabetes this past year in 2023. He is currently on Trulicity 1.5 mg weekly, QD Lantus 10 units. -No side effects. No low blood sugars CGM- He has not used it in the last month because he has issues with picking it up. He has it now. He states that he has been pricking his finger and they are around 145. -Jardiance was too expensive. At his last visit last month he was d/c'd on glipizide He denies any episodes of hypoglycemia-states that he uses candy and soda to correct low blood sugars He was previously referred to ophthalmology. CV: Blood pressure today in the office is 162/98. He is currently on lisinopril/hydrochlorothiazide 10/12.5 mg but has not been taking this for the last week. He refuses to make a medication adjustment. His friend is coming today to fill the pill box. Last few office visits bps have been elevated. Currently on Crestor 40 mg. Last lipids were not quite at goal so this was increased at last visit. Nephro: follows with nephrololgy and was seen last week following an HAERSH on CKD. [facility] Medical History Opioid use disorder Cervical pain (neck) LFT elevation Impaired fasting blood sugar Numbness of right hand Sexually transmitted disease exposure Polysubstance abuse Osteoarthritis COPD (chronic obstructive pulmonary disease) Peripheral vascular disease History of renal calculi Anxiety and depression Tobacco abuse Insomnia Obesity (BMI 30-39.9) EDUARDO (obstructive sleep apnea) Hypercholesterolemia Vitamin D deficiency Surgical History History of extraction of renal calculus History of repair of rotator cuff Family History Father Medical history unknown Mother Seizure CVD (cerebrovascular disease) Hypertension Mental health disorder Brother Hypertension Diabetes Asthma Substance use disorder CVD (cerebrovascular disease) Son Murder Maternal Aunt Schizophrenia Social History Housing: Other Alcohol intake: current Alcohol intake frequency: a few times a month Patient Tobacco Use Status: Current everyday Tobacco user Tobacco use type: Cigarette Cigarette Packs Per Day: 1 Cigarettes Per Day: 8 e-Cigarette/Vaping Use: Never Used Second Hand Smoke Exposure: Yes service: No Current occupational status: unemployed Cognitive needs: No Hearing needs: No Vision needs: Yes Physical Exam Vital Signs: Last Vital Signs Pulse 88 01/04/25 11:34 BP 162/98 H 01/04/25 11:34 Pulse Ox 96 01/04/25 11:34 Oxygen Delivery Method Room Air 01/04/25 11:34 BMI result Body Mass Index 39.7 Const Orientation/consciousness: patient oriented x3 HEENT Ears: hearing grossly normal bilaterally Neck Thyroid: Thyroid normal Lymphatic: no lymphadenopathy noted Resp Auscultation: clear to auscultation bilaterally Cardio Rate: regular rate Rhythm: regular rhythm Heart sounds: S1 normal heart sound present and S2 normal heart sound present Skin General skin exam: no rashes or lesions noted Neuro General: patient oriented x3, gait normal and no focal motor deficits Results AMB Hemoglobin A1c AMB Hemoglobin A1c 7.2 % Last Edit by VICENTE Pond on 01/04/25 11:50 Results Reviewed Results Reviewed: Laboratory Last Values Glucose (Clinic) 134 mg/dL (60-115) H 01/04/25 11:40 Assessment & Plan Assessment & Plan (1) Uncontrolled type 2 diabetes mellitus with hyperglycemia, with long-term current use of insulin: Code(s): E11.65 - Type 2 diabetes mellitus with hyperglycemia; Z79.4 - 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 Continue with the Lantus 10 units daily. Encouraged compliance and regular use of the CGM. (2) CKD (chronic kidney disease) stage 3, GFR 30-59 ml/min: Code(s): N18.30 - Chronic kidney disease, stage 3 unspecified Category: Medical Qualifiers: Chronic kidney disease stage 3 subtype: stage 3b (GFR 30-44) Qualified Code(s): N18.32 - Chronic kidney disease, stage 3b Plan: Recently followed with Nephrology. He is stable. We will continue to monitor. (3) Cocaine abuse: Code(s): F14.10 - Cocaine abuse, uncomplicated Category: Medical Plan: Following with the addiction Medicine on Saturday. Orders: Orders AMB Hemoglobin A1c Today E11.65 - Type 2 diabetes mellitus with hyperglycemia, Z13.9 - Encounter for screening, unspecified Medications: New dulaglutide (Trulicity) 3 mg (0.5 mL) subcut QWEEK 2 mL 3RF Discontinued dulaglutide (Trulicity) Discontinued Reason: Doctor's Order 1.5 mg (0.5 mL) subcut QWEEK 2 mL 11RF Patient Instructions: increase trulicity to 3 mg weekly continue lantus take blood pressure medication as prescribed Coding Level of Care Code Est Pt Level 4 (19744) Complex EM visit Add On G2211 Diagnoses Uncontrolled type 2 diabetes mellitus with hyperglycemia, with long-term current use of insulin E11.65; Z79.4 Stage 3b chronic kidney disease N18.32 Chronic kidney disease stage 3 subtype: stage 3b (GFR 30-44) Cocaine abuse F14.10
[2025-01-04 11:44] LABS: Glucose, Whole Blood 134 mg/dL (60-115)
== END 2025-01-04 11:57 | disposition home or self-care (01) ==
LOC: HO.ENCR 11:33
PROVIDERS: PCP Internal Medicine; Visit Provider Physician Assistant
DX: E11.65 Type 2 diabetes mellitus with hyperglycemia (principal); Z79.4 Long term (current) use of insulin; N18.32 Chronic kidney disease, stage 3b; F14.10 Cocaine abuse, uncomplicated; Z13.9 Encounter for screening, unspecified

== ENCOUNTER → 2025-01-04 11:33 | Outpatient (BNVA) | payer OTHER, SELFPAY | PROVIDERS: PCP Internal Medicine; Visit Provider Physician Assistant | DX: E11.65 Type 2 diabetes mellitus with hyperglycemia (principal); N18.32 Chronic kidney disease, stage 3b; F14.10 Cocaine abuse, uncomplicated; Z79.4 Long term (current) use of insulin | CPT/HCPCS: 82947; 83036; 99212 ==

== ENCOUNTER 2025-03-08 07:33 | Outpatient (REF) | payer OTHER, SELFPAY ==
[2025-03-08 08:02] LABS: Appearance Urine Clear; Color Urine Yellow; Glucose Urine UA Negative (Negative); Leukocyte Esterase Urine Trace (Negative); Nitrite Urine Negative (Negative); PH 5.5 (5.0-9.0); UMIC TRIGGER UA YES; Urine Blood Negative (Negative); Urine Ketones Negative (Negative); Urine Protein Negative (Neg-Trace)
[2025-03-08 08:04] LABS: Bacteria Urine None Seen (None Seen); Hyaline Casts Urine 0-2 /LPF (0-2); RBC Urine 0-2 /HPF (0-2); Squamous Epithelial Cell Urine 0-2 /HPF (0-2); WBC Urine 0-5 /HPF (0-5)
[2025-03-08 08:22] LABS: Anion Gap 10 (12-20); Blood Urea Nitrogen 25 mg/dL (9-16); Carbon Dioxide 23 mmol/L (22-29); Chloride 111 mmol/L (96-108); Estimated Glomerular Filt Rate 46; Iron 49 mcg/dL (45-160); Percent Iron Saturation 19 % (15-50); Potassium 4.4 mmol/L (3.3-5.1); Sodium 140 mmol/L (135-145); Total Iron Binding Capacity 256 mcg/dL (228-428); Unsaturated Iron Binding 207 ug/dL
[2025-03-08 08:30] LABS: Ferritin 102 ng/mL (20-250); Vitamin D 25-OH Total 9.5 ng/mL (>30)
[2025-03-08 09:01] LABS: Folate 7.7 ng/mL (> or = 4.0); Vitamin B12 235 pg/mL (200-900)
[2025-03-11 02:34] LABS: Methylmalonic Acid 241 nmol/L (55-335)
[2025-03-15 18:03] LABS: Homocysteine 21.4 umol/L (< or = 15.2)
== END 2025-03-08 07:34 | disposition home or self-care (01) ==
LOC: HO.LAB 07:33
PROVIDERS: Absent Provider Internal Medicine Nephrology; PCP Internal Medicine; Visit Provider Physician Assistant Medical
DX: G25.81 Restless legs syndrome (principal); R53.83 Other fatigue; G47.9 Sleep disorder, unspecified; G47.19 Other hypersomnia; N18.32 Chronic kidney disease, stage 3b
CPT/HCPCS: 36415; 80051; 81001; 82306; 82565; 82607; 82728; 82746; 82947; 83090; 83540; 83921; 84520; 99212

== ENCOUNTER 2025-03-08 10:59 | Outpatient (AMB) | payer OTHER, SELFPAY ==
[2025-03-08 11:00] VITALS: BP 134/92; PULSE 79; O2SAT 95; BMI 39.7
--- NOTE | 2025-03-08 11:00 | MHC.OFFVIS ---
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 Accompanied by: Self / Same As Patient Allergies soybean Allergy (Mild, Verified 03/08/25 11:04) hives No Known Drug Allergies Allergy (Unknown, Verified 03/08/25 11:04) none seasonal Allergy (Mild, Uncoded 03/08/25 11:04) congestion Medication List - Last Reconciled 03/08/25 by Alice Dong PA-C albuterol sulfate 90 mcg/actuation (Proventil HFA) 2 puffs inhalation Q4-6H PRN aspirin (Adult Low Dose Aspirin) 81 mg PO DAILY blood pressure monitor (Blood Pressure Kit) As directed blood sugar diagnostic (FreeStyle Lite Strips) Use daily As directed to check blood glucose blood-glucose meter (FreeStyle Lite Meter kit) Use daily As directed to check blood sugars blood-glucose sensor (FreeStyle Gael 3 Sensor device) Apply every 14 days As directed to monitor blood glucose 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-glucose,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,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 (FreeStyle Gael 3 [place]) Use daily As directed to monitor blood glucose [CANE As directed] cholecalciferol (vitamin D3) 50 mcg PO DAILY 90 days MDD 50mcg clotrimazole 1% 1 appl topical BID 4 weeks diclofenac sodium 1% (Voltaren Arthritis Pain) 4 grams topical QID insulin degludec (Tresiba FlexTouch U-100 insulin) 10 units (0.1 mL) subcut DAILY lancets (OneTouch Delica Plus Lancet) As directed lancets (FreeStyle Lancets) use daily as directed to check blood glucose lisinopril-hydrochlorothiazide 20-12.5 mg 1 tab PO DAILY miconazole nitrate 2% (Zeasorb AF) 1 appl topical BID mometasone-formoterol 200-5 mcg/actuation (Dulera) 2 puffs inhalation BID omeprazole 20 mg PO DAILY 90 days peg 3350-electrolytes 236-22.74-6.74 -5.86 gram (Golytely) 240 mL PO Q10M 1 day pen needle, diabetic (BD Ultra-Fine Short Pen Needle) Use daily As directed to administer insulin rosuvastatin 40 mg PO DAILY sertraline 25 mg PO BEDTIME tiotropium bromide 2.5 mcg/actuation (Spiriva Respimat) 2 puffs inhalation QAM 30 days trazodone 100 mg PO BEDTIME PRN HPI HPI dm: Details: Patient is a 59-year-old male with a significant past medical history substance abuse, prior MT, prior CVA, fatty liver, uncontrolled type 2 diabetes, hypertension, hyperlipidemia, COPD, tobacco use, EDUARDO on CPAP, obesity and GERD presenting today for a follow-up regarding his diabetes. He is still actively using cocaine daily. States that he is trying to cut back and but at this point does not want to follow with the addiction Medicine or any assistance with this. Endo: His A1c was 7.2. He was 1st diagnosed with diabetes this past year in 2023. He is currently on Trulicity 3 mg weekly, QD Lantus 10 units. -states that he rarely uses the Lantus unless he is going to be eating more than normal and not using any cocaine on that day. -No side effects. No low blood sugars CGM- very hyperglycemic 2%, hyperglycemic 50%, in range 83%, 0% hypoglycemia. Gmi 6.7%. -Jardiance was too expensive. At his last visit last month he was d/c'd on glipizide. Unable to tolerate metformin He denies any episodes of hypoglycemia-states that he uses candy and soda to correct low blood sugars He was previously referred to ophthalmology. CV: Blood pressure today in the office is elevated at 134/92. He is currently on lisinopril/hydrochlorothiazide 10/12.5 mg but has not been taking this consistently. States that he did not take it today. He will use it later today and he states that his blood pressure does respond. He does not want to make any adjustments because he knows that the blood pressure is elevated due to his inconsistency with medication and his cocaine addiction. Currently on Crestor 40 mg. Last lipids were not quite at goal so this was increased at last visit. Nephro: follows with nephrololgy for his CKD. We did discuss that his uncontrolled blood pressures are likely contributing to this. [facility] Medical History Opioid use disorder Cervical pain (neck) LFT elevation Impaired fasting blood sugar Numbness of right hand Sexually transmitted disease exposure Polysubstance abuse Osteoarthritis COPD (chronic obstructive pulmonary disease) Peripheral vascular disease History of renal calculi Anxiety and depression Tobacco abuse Insomnia Obesity (BMI 30-39.9) EDUARDO (obstructive sleep apnea) Hypercholesterolemia Vitamin D deficiency Surgical History History of extraction of renal calculus History of repair of rotator cuff Family History Father Medical history unknown Mother Seizure CVD (cerebrovascular disease) Hypertension Mental health disorder Brother Hypertension Diabetes Asthma Substance use disorder CVD (cerebrovascular disease) Son Murder Maternal Aunt Schizophrenia Social History Housing: Other Alcohol intake: current Alcohol intake frequency: a few times a month Patient Tobacco Use Status: Current everyday Tobacco user Tobacco use type: Cigarette Cigarette Packs Per Day: 1 Cigarettes Per Day: 8 e-Cigarette/Vaping Use: Never Used Second Hand Smoke Exposure: Yes service: No Current occupational status: unemployed Cognitive needs: No Hearing needs: No Vision needs: Yes Physical Exam Vital Signs: Last Vital Signs Pulse 79 03/08/25 11:00 BP 134/92 H 03/08/25 11:00 Pulse Ox 95 03/08/25 11:00 Oxygen Delivery Method Room Air 03/08/25 11:00 BMI result Body Mass Index 39.7 Const Orientation/consciousness: patient oriented x3 HEENT Ears: hearing grossly normal bilaterally Neck Thyroid: Thyroid normal Lymphatic: no lymphadenopathy noted Resp Auscultation: clear to auscultation bilaterally Cardio Rate: regular rate Rhythm: regular rhythm Heart sounds: S1 normal heart sound present and S2 normal heart sound present Skin General skin exam: no rashes or lesions noted Neuro General: patient oriented x3, gait normal and no focal motor deficits Assessment & Plan Assessment & Plan (1) Type 2 diabetes mellitus with hyperglycemia: Code(s): E11.65 - Type 2 diabetes mellitus with hyperglycemia Category: Medical Plan: Increase Trulicity to 4.5 mg. Return in 6-8 weeks to be rechecked. Labs prior to appointment. (2) CKD (chronic kidney disease) stage 3, GFR 30-59 ml/min: Code(s): N18.30 - Chronic kidney disease, stage 3 unspecified Category: Medical Qualifiers: Chronic kidney disease stage 3 subtype: stage 3b (GFR 30-44) Qualified Code(s): N18.32 - Chronic kidney disease, stage 3b Plan: As above. Discussed the importance of controlling his blood sugars and blood pressure. (3) Hypertension: Code(s): I10 - Essential (primary) hypertension Category: Medical Qualifiers: Hypertension type: primary hypertension Qualified Code(s): I10 - Essential (primary) hypertension Plan: Elevated today. Not consistent with antihypertensives. He is aware that uncontrolled high blood pressure can cause heart attack, stroke, early , worsened kidney function etc.. (4) Non compliance w medication regimen: Code(s): Z91.148 - Patient's other noncompliance with medication regimen for other reason Category: Medical Plan: As listed above. He is aware of the complications associated with his current medical conditions. States that he does not need assistance with this. Orders: Orders Basic Metabolic Panel 1 Month E11.65 - Type 2 diabetes mellitus with hyperglycemia, N18.32 - Chronic kidney disease, stage 3b Hemoglobin A1c 1 Month E11.65 - Type 2 diabetes mellitus with hyperglycemia, N18.32 - Chronic kidney disease, stage 3b, R73.01 - Impaired fasting glucose Medications: New dulaglutide (Trulicity) 4.5 mg (0.5 mL) subcut QWEEK 2 mL 5RF Coding Level of Care Code Est Pt Level 4 (22856) Complex EM visit Add On G2211 Diagnoses Type 2 diabetes mellitus with hyperglycemia E11.65 Stage 3b chronic kidney disease N18.32 Chronic kidney disease stage 3 subtype: stage 3b (GFR 30-44) Primary hypertension I10 Hypertension type: primary hypertension Non compliance w medication regimen Z91.148
[2025-03-08 11:09] LABS: Glucose, Whole Blood 111 mg/dL (60-115)
== END 2025-03-08 11:23 | disposition home or self-care (01) ==
LOC: HO.ENCR 11:00
PROVIDERS: PCP Internal Medicine; Visit Provider Physician Assistant
DX: E11.65 Type 2 diabetes mellitus with hyperglycemia (principal); N18.32 Chronic kidney disease, stage 3b; I10 Essential (primary) hypertension; Z91.148 Patient's other noncompliance with medication regimen for other reason

== ENCOUNTER 2025-04-09 13:37 | Outpatient (AMB) | payer OTHER, SELFPAY ==
--- NOTE | 2025-04-09 13:53 | HO.NEPHOV ---
Vital Signs 04/09/25 13:56 Height 5 ft 11 in Weight 276 lb 8 oz BMI 38.6 BP 156/100 H Blood Pressure Location Lt brachial Position Sitting Pulse 96 Pulse Source Pulse Oximeter Pulse Oximetry (%) 95 Oxygen Delivery Method Room Air Intake Visit Reasons: 4 mo fu w/ labs Conf [employer] Required: No Accompanied by: Self / Same As Patient Allergies soybean Allergy (Mild, Verified 04/09/25 13:56) hives No Known Drug Allergies Allergy (Unknown, Verified 04/09/25 13:56) none seasonal Allergy (Mild, Uncoded 03/08/25 11:04) congestion HPI Comments Details: 59-year-old male with poly substance abuse, ongoing cocaine use, prior NH, prior CVA, uncontrolled type 2 diabetes, hypertension, hyperlipidemia, tobacco use, EDUARDO on CPAP, obesity presented today in the office in follow up for HARESH on CKD. He sees [facility] endocrinology. He claims to have better blood sugar control. He denies nausea, vomiting, diarrhea, orthostatic symptoms, renal calculi, chest pain , SOB, PND, orthopnea, hematuria or any other systemic complaints. He has a new diagnosis of EDUARDO and is going to go on CPAP.He is abusing cocaine, last time he used was this morning. [facility] Medical History Opioid use disorder Cervical pain (neck) LFT elevation Impaired fasting blood sugar Numbness of right hand Sexually transmitted disease exposure Polysubstance abuse Osteoarthritis COPD (chronic obstructive pulmonary disease) Peripheral vascular disease History of renal calculi Anxiety and depression Tobacco abuse Insomnia Obesity (BMI 30-39.9) EDUARDO (obstructive sleep apnea) Hypercholesterolemia Vitamin D deficiency Surgical History History of extraction of renal calculus History of repair of rotator cuff Family History Father Medical history unknown Mother Seizure CVD (cerebrovascular disease) Hypertension Mental health disorder Brother Hypertension Diabetes Asthma Substance use disorder CVD (cerebrovascular disease) Son Murder Maternal Aunt Schizophrenia Social History Housing: Other Alcohol intake: current Alcohol intake frequency: a few times a month Patient Tobacco Use Status: Current everyday Tobacco user Tobacco use type: Cigarette Cigarette Packs Per Day: 1 Cigarettes Per Day: 8 e-Cigarette/Vaping Use: Never Used Second Hand Smoke Exposure: Yes service: No Current occupational status: unemployed Cognitive needs: No Hearing needs: No Vision needs: Yes Review of Systems Const All systems reviewed & are unremarkable except as noted in HPI and below Physical Exam Const General: comfortable and no acute distress Orientation/consciousness: patient oriented x3 HEENT Head: Yes normocephalic Mouth: Normal oral and palatal mucosa present Eyes EOM: EOMs intact bilaterally Neck Neck: Yes supple Resp Auscultation: clear to auscultation bilaterally Cardio Jugular venous distension: no JVD Rate: regular rate GI Palpation (GI): Soft to palpation Auscultation: normal bowel sounds General: Yes no CVA tenderness Back/Spine/Pelvis Back: no CVA tenderness Skin General skin exam: no rashes or lesions noted Neuro General: patient oriented x3 and moves all extremities Extrem General: Yes no pedal edema Results Reviewed Nephrology Results: Sodium, (135-145) 140 mmol/L 03/08/25 Potassium, (3.3-5.1) 4.4 mmol/L 03/08/25 Chloride, (96-108) 111 mmol/L H 03/08/25 Carbon Dioxide, (22-29) 23 mmol/L 03/08/25 BUN, (9-16) 25 mg/dL H 03/08/25 Creatinine, (0.5-1.4) 1.54 mg/dL H 03/08/25 Urine Protein, (Neg-Trace) Negative mg/dL 03/08/25 Renal US 09/04/24 Assessment & Plan Assessment & Plan (1) CKD (chronic kidney disease) stage 3, GFR 30-59 ml/min: Code(s): N18.30 - Chronic kidney disease, stage 3 unspecified Category: Medical Qualifiers: Chronic kidney disease stage 3 subtype: stage 3b (GFR 30-44) Qualified Code(s): N18.32 - Chronic kidney disease, stage 3b (2) Hypertension: Code(s): I10 - Essential (primary) hypertension Category: Medical Qualifiers: Hypertension type: primary hypertension Qualified Code(s): I10 - Essential (primary) hypertension Plan Jose E has 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 He is on ACEI. I am planning to initiate him on SGLT2i at next visit. He needs to lose weight. He should maintain good hydration, avoid cocaine as well as excess NSAID use. His urine out put is good. All these have been explained in detail. He does not need a renal biopsy now . F/U given Orders: Orders Creatinine 3 Months N18.32 - Chronic kidney disease, stage 3b Blood Urea Nitrogen 3 Months N18.32 - Chronic kidney disease, stage 3b Electrolytes 3 Months N18.32 - Chronic kidney disease, stage 3b Coding Level of Care Code Est Pt Level 4 (34683) Diagnoses Stage 3b chronic kidney disease N18.32 Chronic kidney disease stage 3 subtype: stage 3b (GFR 30-44) Primary hypertension I10 Hypertension type: primary hypertension
[2025-04-09 13:56] VITALS: BP 156/100; PULSE 96; O2SAT 95; BMI 38.6
== END 2025-04-09 14:09 | disposition home or self-care (01) ==
LOC: HO.HKA 13:38
PROVIDERS: PCP Internal Medicine; Visit Provider Internal Medicine Nephrology
DX: N18.32 Chronic kidney disease, stage 3b (principal); I10 Essential (primary) hypertension
CPT/HCPCS: 99214

== ENCOUNTER → 2025-04-09 13:37 | Outpatient (BNVA) | payer OTHER, SELFPAY | PROVIDERS: PCP Internal Medicine; Visit Provider Internal Medicine Nephrology | DX: E11.65 Type 2 diabetes mellitus with hyperglycemia (principal); E11.22 Type 2 diabetes mellitus with diabetic chronic kidney disease; I12.9 Hypertensive chronic kidney disease with stage 1 through stage 4 chronic kidney disease, or unspecified chronic kidney disease; N18.32 Chronic kidney disease, stage 3b | CPT/HCPCS: 99212 ==

== ENCOUNTER 2025-04-14 13:00 | Outpatient (AMB) | payer OTHER, SELFPAY ==
--- NOTE | 2025-04-14 13:02 | MHC.PC.OV ---
Vital Signs 04/14/25 13:03 04/14/25 13:22 Height 5 ft 11 in Weight 276 lb BMI 38.5 BP 156/94 H 134/82 Blood Pressure Location Lt brachial Lt brachial Position Sitting Sitting Respiration 20 Pulse 110 H Pulse Source Pulse Oximeter Temp 97.0 F Temp Source Temporal Artery Scan Pulse Oximetry (%) 96 Oxygen Delivery Method Room Air Intake Visit Reasons: f/u DM and HTN Allergies soybean Allergy (Mild, Verified 04/14/25 13:08) hives No Known Drug Allergies Allergy (Unknown, Verified 04/14/25 13:08) none seasonal Allergy (Mild, Uncoded 04/14/25 13:08) congestion Tobacco use date assessed: 04/14/25 Dental Screening Dental Screen Date: 04/14/25 Did you have a dental visit in the last 12 months?: No Did you have a dental problem in the last 6 months where you did not have access to dental care?: No Was dental information given to patient?: Patient declined [facility] Medical History (Updated 04/14/25 @ 13:16 by Mike Bagley MD) Opioid use disorder Cervical pain (neck) LFT elevation Impaired fasting blood sugar Numbness of right hand Sexually transmitted disease exposure Polysubstance abuse Osteoarthritis COPD (chronic obstructive pulmonary disease) Peripheral vascular disease History of renal calculi Anxiety and depression Tobacco abuse Insomnia Obesity (BMI 30-39.9) EDUARDO (obstructive sleep apnea) Hypercholesterolemia Vitamin D deficiency Surgical History History of extraction of renal calculus History of repair of rotator cuff Family History Father Medical history unknown Mother Seizure CVD (cerebrovascular disease) Hypertension Mental health disorder Brother Hypertension Diabetes Asthma Substance use disorder CVD (cerebrovascular disease) Son Murder Maternal Aunt Schizophrenia Social History Housing: Other Alcohol intake: current Alcohol intake frequency: a few times a month Patient Tobacco Use Status: Current everyday Tobacco user Tobacco use type: Cigarette Cigarette Packs Per Day: 1 Cigarettes Per Day: 8 e-Cigarette/Vaping Use: Never Used Second Hand Smoke Exposure: Yes service: No Current occupational status: unemployed Cognitive needs: No Hearing needs: No Vision needs: Yes Questionnaire PHQ-9 Over the last 2 weeks, how often have you been bothered by any of the following problems? 1. Little interest or pleasure in doing things: nearly every day 2. Feeling down, depressed, or hopeless: nearly every day 3. Trouble falling or staying asleep, or sleeping too much: nearly every day 4. Feeling tired or having little energy: nearly every day 5. Poor appetite or overeating: nearly every day 6. Feeling bad about yourself - or that you are a failure or have let yourself or your family down: nearly every day 7. Trouble concentrating on things, such as reading the newspaper or watching television: not at all 8. Moving or speaking so slowly that other people could have noticed. Or the opposite - being so fidgety or restless that you have been moving around a lot more than usual: not at all 9. Thoughts that you would be better off or of hurting yourself in some way: not at all Total score: 18 Source: Developed by Drs. Ricardo Love, Stephanie Javier, Yobany Victor and colleagues, with an educational ernestine from [employer]. Thrive Questionnaire Date Thrive assessed: 09/30/24 I am a: Patient What is your living situation today?: I choose not to answer this question Within the past 12 months, did the food you bought not last and you didn't have the money to get more?: Often true Within the past 12 months, did you worry whether your food would run out before you got money to buy more?: Often true Do you have trouble paying for medicines?: No Do you have trouble getting transportation to medical appointments?: No Do you have trouble paying your heating and electricity bill?: No Do you have trouble taking care of your child, family member or friend?: I choose not to answer this question Do you have trouble with day-to-day activities such as bathing, preparing meals, shopping, managing finances, etc.?: No Are you currently unemployed and looking for a job?: Yes Are you interested in more education?: No Please select the resources that you would like help with: Housing/Residential, Utilities and Care for elder or disabled Currently or been in a relationship where the following occur: I choose not to answer THRIVE Score: 2 AUDIT C Alcohol Use Questionnaire (AUDIT-C) 1. How often do you have a drink containing alcohol?: Never 3. How often do you have six or more drinks on one occasion?: Never Total Score: 0 TAMIE-7 AMB Questionnaire TAMIE-7 Date TAMIE - 7 assessed: 09/30/24 Feeling nervous, anxious, or on edge: 0 = Not at all Not being able to stop or control worryin = Not at all Worrying too much about different things: 0 = Not at all Trouble relaxin = Not at all Being so restless that it is hard to sit still: 0 = Not at all Becoming easily annoyed or irritable: 0 = Not at all Feeling afraid as if something awful might happen: 0 = Not at all Total TAMIE-7 score (0-4 normal; 5-9 mild; 10-14 moderate; 15-21 severe): 0 Source: Developed by Drs. Ricardo Love, Stephanie Javier, Yobany Victor and colleagues, with an educational ernestine from [employer]. Physical exam (Primary Care) Vital Signs: Last Vital Signs Temp 97.0 F 04/14/25 13:03 Pulse 110 H 04/14/25 13:03 Resp 20 04/14/25 13:03 BP 134/82 04/14/25 13:22 Pulse Ox 96 04/14/25 13:03 Oxygen Delivery Method Room Air 04/14/25 13:03 BMI result Body Mass Index 38.5 Tobacco/Smoking Status: Tobacco use Status Tobacco use date assessed 04/14/25 04/14/25 13:09 Patient Tobacco Use Status Current everyday Tobacco 04/14/25 13:02 Tobacco use type Cigarette 04/14/25 13:02 e-Cigarette/Vaping Use Never Used 04/14/25 13:02 PHQ-9: PHQ-9 Score PHQ-9: Total score 18 04/14/25 13:20 Thrive Assessment: Date of Thrive Assessment Date Thrive assessed 09/30/24 04/14/25 13:02 Currently or been in a relationship where the following occur: I choose not to answer Const General: alert; No acute distress Eyes Conjunctivae: conjunctivae normal Resp Auscultation: clear to auscultation bilaterally Cardio Rate: regular rate Rhythm: regular rhythm GI Inspection: Yes normal to inspection Extrem General: Yes normal to inspection and No edema Results AMB Hemoglobin A1c AMB Hemoglobin A1c 6.4 % Last Edit by Kendy Martinez CMA on 04/14/25 13:13 Immunizations pneumoc 20-prema conj-dip cr(PF) 0.5 mL IM syringe Performing Provider: Mike Bagley MD Performing Location: [facility] Administered by: Kendy Martinez CMA on 04/14/25 13:38 Dose Route Admin Location Dispensed Lot Number Expiration Date 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.5 mL IM Left Tricep 0.5 mL [id number] 03/23/26 [employer] Total Dispensed Waste 0.5 mL 0 % VIS Given Date VIS Provided VIS Publication Date 04/14/25 Single Vaccine 25 Eligibility Eligibility Date Funding Source Not [facility] Eligible 04/14/25 Private Results Reviewed Results Reviewed: Laboratory Last Values Hgb A1c (Clinic) 6.4 % (4.0-6.0) H 04/14/25 13:09 Coding Level of Care Code Est Pt Level 4 (74178) Complex EM visit Add On G2211 Diagnoses Type 2 diabetes mellitus with hyperglycemia E11.65 Obesity (BMI 30-39.9) E66.9 Hypercholesterolemia E78.00 Primary hypertension I10 Hypertension type: primary hypertension Coronary artery disease I25.10 Polysubstance abuse F19.10 GERD (gastroesophageal reflux disease) K21.9 Fatty liver K76.0 Stage 3b chronic kidney disease N18.32 Chronic kidney disease stage 3 subtype: stage 3b (GFR 30-44) COPD (chronic obstructive pulmonary disease) J44.9 EDUARDO (obstructive sleep apnea) G47.33 Tobacco abuse Z72.0 Assessment & Plan Assessment & Plan (1) Type 2 diabetes mellitus with hyperglycemia: Code(s): E11.65 - Type 2 diabetes mellitus with hyperglycemia Category: Medical Plan: Decrease the amount of carbohydrate intake, pasta, bread, rice and potatoes are all sugar and that is aside from all the sweet stuff, remember that fruits are good but they are Sweet also. Hemoglobin A1c goal of less than 6.5. Patient is on Trulicity at 4.5 mg once a week Tresiba 10 units once a day (2) Obesity (BMI 30-39.9): Code(s): E66.9 - Obesity, unspecified Category: Medical Plan: Diet and exercise (3) Hypercholesterolemia: Code(s): E78.00 - Pure hypercholesterolemia, unspecified Category: Medical Plan: Avoid fried foods, chicken skin, eggs, butter margarine, pastries and meat. Be it pork or beef they have a lot of cholesterol LDL goal of less than 70 and triglyceride of less than 150 on rosuvastatin 40 mg once a day (4) Hypertension: Code(s): I10 - Essential (primary) hypertension Category: Medical Qualifiers: Hypertension type: primary hypertension Qualified Code(s): I10 - Essential (primary) hypertension Plan: Continue with blood pressure medication. Decrease salt intake and exercise patient is on lisinopril hydrochlorothiazide 20/12.5 mg once a day (5) Coronary artery disease: Code(s): I25.10 - Atherosclerotic heart disease of [place] coronary artery without angina pectoris Category: Medical Plan: Control the cholesterol, weight, blood pressure, diabetes on aspirin 81 mg once a day (6) Polysubstance abuse: Code(s): F19.10 - Other psychoactive substance abuse, uncomplicated Category: Medical Plan: Patient is strongly advised to refrain from any substance at all! (7) GERD (gastroesophageal reflux disease): Code(s): K21.9 - Gastro-esophageal reflux disease without esophagitis Category: Medical Plan: Avoid the foods that causes that usually spicy foods, tomato products, juices, coffee, soda and foods that your sensitive to. After eating do not lie down, allow 3-4 hours before in lie down. And keep the head of bed above 30 degrees to avoid the acid from going up. (8) Fatty liver: Comment: November 2022 Code(s): K76.0 - Fatty (change of) liver, not elsewhere classified Category: Medical Plan: Low-fat diet and exercise (9) CKD (chronic kidney disease) stage 3, GFR 30-59 ml/min: Code(s): N18.30 - Chronic kidney disease, stage 3 unspecified Category: Medical Qualifiers: Chronic kidney disease stage 3 subtype: stage 3b (GFR 30-44) Qualified Code(s): N18.32 - Chronic kidney disease, stage 3b Plan: Patient is advised to abstain from any prohibited drugs. (10) COPD (chronic obstructive pulmonary disease): Code(s): J44.9 - Chronic obstructive pulmonary disease, unspecified Category: Medical Plan: Patient on albuterol and Dulera and Spiriva (11) EDUARDO (obstructive sleep apnea): Code(s): G47.33 - Obstructive sleep apnea (adult) (pediatric) Category: Medical Plan: Patient is advised to continue to use CPAP more than 4 hours a night and benefits from this. (12) Tobacco abuse: Code(s): Z72.0 - Tobacco use Category: Medical Plan: Patient is strongly advised to stop smoking!. Patient has been enrolled in the lung cancer screening program and has an overdo cat scan Plan History of Present Illness The patient is a 59-year-old male presenting for a follow-up visit. The patient has a history of diabetes mellitus, managed with Trulicity and Tresiba, with a recent hemoglobin A1c of 6.4%. He has been advised to maintain a hemoglobin A1c goal of less than 6.5%. The patient has chronic obstructive pulmonary disease (COPD) and is on albuterol, tulera, and Spiriva. He has been advised to stop smoking and is enrolled in a lung cancer screening program with an overdue CAT scan. The patient has obstructive sleep apnea with a mild degree of apnea and an AHI of 16, for which CPAP therapy at 12 cm water has been recommended. He is advised to use CPAP for more than 4 hours a night. The patient has hypercholesterolemia with a recent LDL of 105 mg/dL, and he is on rosuvastatin 40 mg once a day. The goal is to achieve an LDL of less than 70 mg/dL and triglycerides of less than 150 mg/dL. The patient has hypertension and is on lisinopril hydrochlorothiazide 20/12.5 mg once a day. He has a history of cerebrovascular accident in 2020. The patient has coronary artery disease and is on aspirin 81 mg once a day. He has been strongly advised to refrain from any substance use. 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 He is on an PERRY inhibitor and has been advised to start on SGLT2 inhibitors, lose weight, hydrate, and avoid drugs and NSAIDs. The patient has nonalcoholic fatty liver disease and generalized anxiety disorder. Preventative care measures include a lung cancer screening program and a recommendation for a pneumonia vaccination. [facility] [place] - Lung cancer screening program enrollment with overdue CAT scan - Recommendation for pneumonia vaccination - Hemoglobin A1c goal of less than 6.5% - LDL cholesterol goal of less than 70 mg/dL - Triglyceride goal of less than 150 mg/dL Social History - Substance use: Ongoing cocaine abuse - Smoking: Advised to stop smoking Review of Systems - Respiratory: Reports mild degree of sleep apnea - Cardiovascular: Denies chest pain Physical Exam - Cardiovascular: Blood pressure 134/80 mmHg Results - Labs: Hemoglobin A1c 6.4% - Labs: LDL cholesterol 105 mg/dL - Labs: Renal function 1.54 - Sleep Study: AHI of 16, mild degree of sleep apnea Plan The patient is advised to continue with Trulicity and Tresiba for diabetes management, aiming to maintain a hemoglobin A1c of less than 6.5%. For COPD, the patient should continue using albuterol, tulera, and Spiriva, and is strongly advised to stop smoking. The patient is recommended to adhere to CPAP therapy for obstructive sleep apnea, using it for more than 4 hours a night. For hypercholesterolemia, the patient is on rosuvastatin with a goal to reduce LDL to less than 70 mg/dL and triglycerides to less than 150 mg/dL. Hypertension management includes lisinopril hydrochlorothiazide, and the patient is advised to monitor blood pressure regularly. For coronary artery disease, the patient is on aspirin and advised to avoid any substance use. Chronic kidney disease management involves continuing PERRY inhibitors, starting SGLT2 inhibitors, weight loss, hydration, and avoiding drugs and NSAIDs. Preventative care includes lung cancer screening and pneumonia vaccination. Patient was informed and verbally consented to the use of an ambient scribe for clinic note documentation during this visit. Discussion Notes During the visit, I discussed with the patient the importance of adhering to his medication regimen, including Trulicity, Tresiba, and rosuvastatin, to manage his diabetes and hypercholesterolemia effectively. We reviewed the need for CPAP therapy for his obstructive sleep apnea and emphasized the benefits of smoking cessation for his COPD and overall health. I also highlighted the importance of avoiding substance use, particularly cocaine, due to its detrimental effects on his cardiovascular and renal health. Preventative measures, including lung cancer screening and pneumonia vaccination, were recommended to reduce future health risks. Patient Instructions - Continue taking Trulicity and Tresiba as prescribed. - Use CPAP machine for more than 4 hours each night. - Take rosuvastatin daily to manage cholesterol levels. - Avoid smoking and substance use, particularly cocaine. - Schedule and attend lung cancer screening and pneumonia vaccination appointments. Orders: Orders Complete Blood Count Auto Diff Today I25.10 - Atherosclerotic heart disease of [place] coronary artery without angina pectoris Comprehensive Met. Panel Today I25.10 - Atherosclerotic heart disease of [place] coronary artery without angina pectoris Thyroid Stimulating Hormone Today I25.10 - Atherosclerotic heart disease of [place] coronary artery without angina pectoris Vitamin B12 and Folate Today I25.10 - Atherosclerotic heart disease of [place] coronary artery without angina pectoris IRON PROFILE Today I25.10 - Atherosclerotic heart disease of [place] coronary artery without angina pectoris Creatinine Urine Today E11.65 - Type 2 diabetes mellitus with hyperglycemia, I25.10 - Atherosclerotic heart disease of [place] coronary artery without angina pectoris Microalbumin, Random (w Creat) Today E11.65 - Type 2 diabetes mellitus with hyperglycemia, I25.10 - Atherosclerotic heart disease of [place] coronary artery without angina pectoris Vitamin D 25-OH Total Today I25.10 - Atherosclerotic heart disease of [place] coronary artery without angina pectoris AMB Hemoglobin A1c Today Z13.9 - Encounter for screening, unspecified Free T4 (Free Thyroxine) Today I25.10 - Atherosclerotic heart disease of [place] coronary artery without angina pectoris Prostate Specific Antigen Scr Today I25.10 - Atherosclerotic heart disease of [place] coronary artery without angina pectoris Lipid Panel Today E78.00 - Pure hypercholesterolemia, unspecified, I25.10 - Atherosclerotic heart disease of [place] coronary artery without angina pectoris Ferritin Today I25.10 - Atherosclerotic heart disease of [place] coronary artery without angina pectoris Hemoglobin A1c Today I25.10 - Atherosclerotic heart disease of [place] coronary artery without angina pectoris Reticulocyte Count Today I25.10 - Atherosclerotic heart disease of [place] coronary artery without angina pectoris UA CC w/rflx Micro + Cult Today I25.10 - Atherosclerotic heart disease of [place] coronary artery without angina pectoris, R30.0 - Dysuria Pneumococcal 20 Immunization Today Z23 - Encounter for immunization Referrals Addiction Medicine Referral F19.10 - Other psychoactive substance abuse, uncomplicated Cologuard Test Z12.11 - Encounter for screening for malignant neoplasm of colon Ophthalmology Referral E11.65 - Type 2 diabetes mellitus with hyperglycemia
[2025-04-14 13:03] VITALS: BP 156/94; PULSE 110; RESP 20; TEMP 36.1; O2SAT 96; BMI 38.5
[2025-04-14 13:22] VITALS: BP 134/82
== END 2025-04-14 13:37 | disposition home or self-care (01) ==
LOC: HO.HMCH 13:01
PROVIDERS: PCP Internal Medicine; Visit Provider Internal Medicine
DX: I12.9 Hypertensive chronic kidney disease with stage 1 through stage 4 chronic kidney disease, or unspecified chronic kidney disease (principal); E11.65 Type 2 diabetes mellitus with hyperglycemia; F19.10 Other psychoactive substance abuse, uncomplicated; N18.32 Chronic kidney disease, stage 3b; J44.9 Chronic obstructive pulmonary disease, unspecified; E66.9 Obesity, unspecified; Z68.38 Body mass index [BMI] 38.0-38.9, adult; E78.00 Pure hypercholesterolemia, unspecified; I25.10 Atherosclerotic heart disease of native coronary artery without angina pectoris; K21.9 Gastro-esophageal reflux disease without esophagitis; G47.33 Obstructive sleep apnea (adult) (pediatric); Z23 Encounter for immunization

== ENCOUNTER → 2025-04-14 13:00 | Outpatient (BNVA) | payer OTHER, SELFPAY | PROVIDERS: PCP Internal Medicine; Visit Provider Internal Medicine | DX: E11.22 Type 2 diabetes mellitus with diabetic chronic kidney disease (principal); E11.65 Type 2 diabetes mellitus with hyperglycemia; E66.9 Obesity, unspecified; I12.9 Hypertensive chronic kidney disease with stage 1 through stage 4 chronic kidney disease, or unspecified chronic kidney disease; N18.32 Chronic kidney disease, stage 3b; E78.00 Pure hypercholesterolemia, unspecified; I25.10 Atherosclerotic heart disease of native coronary artery without angina pectoris; F19.10 Other psychoactive substance abuse, uncomplicated; K21.9 Gastro-esophageal reflux disease without esophagitis; J44.9 Chronic obstructive pulmonary disease, unspecified; G47.33 Obstructive sleep apnea (adult) (pediatric); Z72.0 Tobacco use; Z23 Encounter for immunization; Z68.38 Body mass index [BMI] 38.0-38.9, adult | CPT/HCPCS: 83036; 90471; 90677; 99212 ==

== ENCOUNTER 2025-04-20 13:53 | Outpatient (REF) | payer OTHER, SELFPAY ==
[2025-04-20 14:10] LABS: MANUAL DIFF FLAG NO
[2025-04-20 14:41] LABS: Hematocrit 42.4 % (42.0-52.0); Hemoglobin 14.3 g/dl (14.0-18.0); Imm Gran Abs Auto 0.02 X10*3/uL (0.00-0.03); Imm Gran Pct Auto 0.3 % (0.0-0.4); Lymphocytes Absolute Auto 1.3 X10*3/uL (1.2-4.9); Mean Corpuscular HGB Conc 33.7 g/dl (31.0-36.0); Mean Corpuscular Hemoglobin 29.9 pg (27.0-33.0); Mean Corpuscular Volume 88.5 fL (80.0-98.0); NRBC Abs Auto 0.000 X10*3/uL (0.0-0.012); NRBC Pct Auto 0.0 /100WBC (0.0-0.2); Platelet Count 263 X10*3/uL (160-400); Red Blood Count 4.79 X10*6/uL (4.60-5.80); Reticulocytes Absolute 0.080 X10*6/uL (0.026-0.095); White Blood Count 6.8 X10*3/uL (4.8-10.8)
[2025-04-20 14:47] LABS: Hemoglobin A1C 157.5853 umol/L; Total Hemoglobin (HGBA1C) 3703.5192 umol/L
[2025-04-20 15:00] LABS: Appearance Urine Clear; Glucose Urine UA Negative (Negative); PH 6.0 (5.0-9.0); Specific Gravity - Urine 1.015 (1.005-1.025)
[2025-04-20 15:23] LABS: Microalbum/Creatinine Ratio Ur 14.7 ug/mg cr (<30)
[2025-04-20 15:36] LABS: Alanine Aminotransferase 19 U/L (0-40); Albumin Level 4.4 g/dL (3.5-5.0); Alkaline Phosphatase 97 U/L (39-117); Anion Gap 13 (12-20); Aspartate Amino Transferase 18 U/L (5-37); Blood Urea Nitrogen 13 mg/dL (9-16); Calcium 9.3 mg/dL (8.4-10.2); Carbon Dioxide 22 mmol/L (22-29); Chloride 108 mmol/L (96-108); Cholesterol 174 mg/dL (<200); Estimated Glomerular Filt Rate 55; HDL Cholesterol 39 mg/dL (>40); Iron 57 mcg/dL (45-160); Percent Iron Saturation 21 % (15-50); Potassium 4.2 mmol/L (3.3-5.1); Sodium 139 mmol/L (135-145); Total Iron Binding Capacity 267 mcg/dL (228-428); Total Protein 7.8 g/dL (6.5-8.0); Triglycerides 97 mg/dL (<150); Unsaturated Iron Binding 210 ug/dL
[2025-04-20 15:46] LABS: Thyroid Stimulating Hormone 1.19 uIU/mL (0.32-4.0)
[2025-04-20 15:49] LABS: Ferritin 110 ng/mL (20-250); Free T4 (Free Thyroxine) 0.87 ng/dL (0.71-1.85)
[2025-04-20 15:59] LABS: Folate 9.0 ng/mL (> or = 4.0); Vitamin B12 284 pg/mL (200-900)
== END 2025-04-20 13:54 | disposition home or self-care (01) ==
LOC: HO.LAB 13:53
PROVIDERS: PCP Internal Medicine; Visit Provider Physician Assistant
DX: N18.32 Chronic kidney disease, stage 3b (principal); E11.65 Type 2 diabetes mellitus with hyperglycemia; I25.10 Atherosclerotic heart disease of native coronary artery without angina pectoris; E78.00 Pure hypercholesterolemia, unspecified; R30.0 Dysuria
CPT/HCPCS: 36415; 80053; 80061; 81003; 82043; 82306; 82570; 82607; 82728; 82746; 83036; 83540; 84153; 84439; 84443; 85025; 85045

== ENCOUNTER 2025-04-23 13:07 | Outpatient (AMB) | payer OTHER, SELFPAY ==
--- NOTE | 2025-04-23 13:12 | MHC.OFFVIS ---
Vital Signs 04/23/25 13:13 04/23/25 13:33 Height 5 ft 11 in Weight 276 lb 3.827 oz BMI 38.5 BP 180/100 H 156/80 H Blood Pressure Location Lt brachial Lt brachial Position Sitting Sitting Pulse 102 H Pulse Source Pulse Oximeter Pulse Oximetry (%) 97 Oxygen Delivery Method Room Air Intake Visit Reasons: DMT2 Follow-up Intake Note: Patient present today for Type 2 Diabetes Mellitus Last Diabetic eye exam: Last exam was 2 years ago, he would like a referral. 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 Required: No Accompanied by: Self / Same As Patient Allergies soybean Allergy (Mild, Verified 04/23/25 13:17) hives No Known Drug Allergies Allergy (Unknown, Verified 04/23/25 13:17) none seasonal Allergy (Mild, Uncoded 04/23/25 13:17) congestion Medication List - Last Reconciled 04/23/25 by Alice Dong PA-C albuterol sulfate 90 mcg/actuation (Proventil HFA) 2 puffs inhalation Q4-6H PRN aspirin (Adult Low Dose Aspirin) 81 mg PO DAILY blood pressure monitor (Blood Pressure Kit) As directed blood sugar diagnostic (FreeStyle Lite Strips) Use daily As directed to check blood glucose blood-glucose meter (FreeStyle Lite Meter kit) Use daily As directed to check blood sugars blood-glucose,allocations clerk,cont (FreeStyle Gael 3 [place]) Use daily As directed to monitor blood glucose [CANE As directed] cholecalciferol (vitamin D3) 50 mcg PO DAILY 90 days MDD 50mcg clotrimazole 1% 1 appl topical BID 4 weeks diclofenac sodium 1% (Voltaren Arthritis Pain) 4 grams topical QID dulaglutide (Trulicity) 4.5 mg (0.5 mL) subcut QWEEK insulin degludec (Tresiba FlexTouch U-100 insulin) 10 units (0.1 mL) subcut DAILY lancets (FreeStyle Lancets) use daily as directed to check blood glucose lisinopril-hydrochlorothiazide 20-12.5 mg 1 tab PO DAILY mecobalamin (vitamin B12) 1,000 mcg PO DAILY 3 months MDD 1000mcg miconazole nitrate 2% (Zeasorb AF) 1 appl topical BID mometasone-formoterol 200-5 mcg/actuation (Dulera) 2 puffs inhalation BID omeprazole 20 mg PO DAILY 90 days pen needle, diabetic (BD Ultra-Fine Short Pen Needle) Use daily As directed to administer insulin rosuvastatin 40 mg PO DAILY sertraline 25 mg PO BEDTIME tiotropium bromide 2.5 mcg/actuation (Spiriva Respimat) 2 puffs inhalation QAM 30 days trazodone 100 mg PO BEDTIME PRN HPI HPI DMT2 Follow-up: Details: Patient is a 59-year-old male with a significant past medical history substance abuse, prior OR, prior CVA, fatty liver, uncontrolled type 2 diabetes, hypertension, hyperlipidemia, COPD, tobacco use, EDUARDO on CPAP, obesity and GERD presenting today for a follow-up regarding his diabetes. He is still actively using cocaine daily. States that he is trying to cut back and but at this point does not want to follow with the addiction Medicine or any assistance with this. Endo: His most recent A1c 6. He was 1st diagnosed with diabetes this past year in 2023. He is currently on Trulicity 4.5 mg weekly -states that he rarely uses the tresiba unless he is going to be eating more than normal and not using any cocaine on that day. He states that he take its at most every other day. -No side effects. No low blood sugars CGM- he states he has to pick this up from the pharmacy -Jardiance was too expensive. At his last visit last month he was d/c'd on glipizide. Unable to tolerate metformin He denies any episodes of hypoglycemia-states that he uses candy and soda to correct low blood sugars He was previously referred to ophthalmology. CV: Blood pressure today in the office is elevated at 156/80. Initially was higher when he walked into the room. He states that it is elevated because he just use cocaine prior to arrival. He does not have any chest pain or shortness on breath. No palpitations. He states that it is elevated just because it is a drug in the he has not also used his antihypertensives. He is currently on lisinopril/hydrochlorothiazide 10/12.5 mg. Currently on Crestor 40 mg. Nephro: follows with nephrololgy for his CKD. We did discuss that his uncontrolled blood pressures are likely contributing to this. [facility] Medical History (Updated 04/14/25 @ 13:16 by Mike Bagley MD) Opioid use disorder Cervical pain (neck) LFT elevation Impaired fasting blood sugar Numbness of right hand Sexually transmitted disease exposure Polysubstance abuse Osteoarthritis COPD (chronic obstructive pulmonary disease) Peripheral vascular disease History of renal calculi Anxiety and depression Tobacco abuse Insomnia Obesity (BMI 30-39.9) EDUARDO (obstructive sleep apnea) Hypercholesterolemia Vitamin D deficiency Surgical History History of extraction of renal calculus History of repair of rotator cuff Family History Father Medical history unknown Mother Seizure CVD (cerebrovascular disease) Hypertension Mental health disorder Brother Hypertension Diabetes Asthma Substance use disorder CVD (cerebrovascular disease) Son Murder Maternal Aunt Schizophrenia Social History Housing: Other Alcohol intake: current Alcohol intake frequency: a few times a month Patient Tobacco Use Status: Current everyday Tobacco user Tobacco use type: Cigarette Cigarette Packs Per Day: 1 Cigarettes Per Day: 8 e-Cigarette/Vaping Use: Never Used Second Hand Smoke Exposure: Yes service: No Current occupational status: unemployed Cognitive needs: No Hearing needs: No Vision needs: Yes Physical Exam Vital Signs: Last Vital Signs Pulse 102 H 04/23/25 13:13 BP 180/100 H 04/23/25 13:13 Pulse Ox 97 04/23/25 13:13 Oxygen Delivery Method Room Air 04/23/25 13:13 BMI result Body Mass Index 38.5 Const Orientation/consciousness: patient oriented x3 HEENT Ears: hearing grossly normal bilaterally Neck Thyroid: Thyroid normal Lymphatic: no lymphadenopathy noted Resp Auscultation: clear to auscultation bilaterally Cardio Rate: regular rate Rhythm: regular rhythm Heart sounds: S1 normal heart sound present and S2 normal heart sound present Skin General skin exam: no rashes or lesions noted Neuro General: patient oriented x3, gait normal and no focal motor deficits Results Reviewed Results Reviewed: Laboratory Tests 04/21/24 09/11/24 09/30/24 09:36 07:47 09:22 Sodium Potassium Chloride Carbon Dioxide Anion Gap BUN Creatinine Estimated GFR Glucose (Clinic) Random Glucose Estimat Average Glucose Hgb A1c (Clinic) 6.4 H Hemoglobin A1c % AST ALT Triglycerides 74 Cholesterol 171 LDL Cholesterol, Calc 105 H HDL Cholesterol 52 Urine Creatinine 302.66 Urine Microalbumin 174.0 Microalb/Creat Ratio 57.4 H 10/30/24 10/30/24 11/06/24 11:40 11:44 08:50 Sodium 138 Potassium 4.8 Chloride 104 Carbon Dioxide 24 Anion Gap 15 BUN 18 H Creatinine 1.21 Estimated GFR > 60 Glucose (Clinic) 149 H Random Glucose Estimat Average Glucose Hgb A1c (Clinic) Hemoglobin A1c % AST ALT Triglycerides Cholesterol LDL Cholesterol, Calc HDL Cholesterol Urine Creatinine 243.06 Urine Microalbumin Microalb/Creat Ratio 01/04/25 03/08/25 03/08/25 11:43 07:47 11:06 Sodium 140 Potassium 4.4 Chloride 111 H Carbon Dioxide 23 Anion Gap 10 L BUN 25 H Creatinine 1.54 H Estimated GFR 46 Glucose (Clinic) 111 Random Glucose Estimat Average Glucose Hgb A1c (Clinic) 7.2 H Hemoglobin A1c % AST ALT Triglycerides Cholesterol LDL Cholesterol, Calc HDL Cholesterol Urine Creatinine Urine Microalbumin Microalb/Creat Ratio 04/20/25 04/20/25 14:07 14:08 Sodium Potassium Chloride Carbon Dioxide Anion Gap BUN Creatinine 1.33 Estimated GFR 55 Glucose (Clinic) Random Glucose 133 H Estimat Average Glucose 126 Hgb A1c (Clinic) Hemoglobin A1c % 6.0 AST 18 ALT 19 Triglycerides 97 Cholesterol 174 LDL Cholesterol, Calc 116 H HDL Cholesterol 39 L Urine Creatinine 108.49 Urine Microalbumin 16.0 Microalb/Creat Ratio 14.7 Assessment & Plan Assessment & Plan (1) Uncontrolled type 2 diabetes mellitus with hyperglycemia, with long-term current use of insulin: Code(s): E11.65 - Type 2 diabetes mellitus with hyperglycemia; Z79.4 - senior care (current) use of insulin Category: Medical Plan: Continue current regimen. Currently controlled. Refilled testing supplies today. Encouraged him to start a healthy diet (2) Morbid obesity: Code(s): E66.01 - Morbid (severe) obesity due to excess calories Category: Medical Plan: He has lost a few lb with Trulicity. I have encouraged him to work on continued lifestyle modification (3) Hypertension: Code(s): I10 - Essential (primary) hypertension Category: Medical Qualifiers: Hypertension type: primary hypertension Qualified Code(s): I10 - Essential (primary) hypertension Plan: He will monitor blood pressure at home. He is aware of the increased risk of heart attack and stroke. Does not wish to make any changes. Encouraged him to be compliant with medication. (4) Cocaine addiction: Code(s): F14.20 - Cocaine dependence, uncomplicated Category: Medical Plan: Offered referral to addiction Medicine but declines Medications: New blood-glucose sensor (FreeStyle Gael 3 Plus Sensor device) Use daily As directed to monitor glucose 2 ea 5RF E08.29 - Diabetes mellitus due to underlying condition with other diabetic kidney complication, R80.9 - Proteinuria, unspecified, Z79.4 - senior care (current) use of insulin blood sugar diagnostic (FreeStyle Lite Strips) Use daily As directed to check blood glucose 100 ea 3RF E11.9 - Type 2 diabetes mellitus without complications lancets (FreeStyle Lancets) use daily as directed to check blood glucose 100 ea 3RF E11.65 - Type 2 diabetes mellitus with hyperglycemia Coding Level of Care Code Est Pt Level 4 (16940) Complex EM visit Add On G2211 Diagnoses Uncontrolled type 2 diabetes mellitus with hyperglycemia, with long-term current use of insulin E11.65; Z79.4 Morbid obesity E66.01 Primary hypertension I10 Hypertension type: primary hypertension Cocaine addiction F14.20
[2025-04-23 13:13] VITALS: BP 180/100; PULSE 102; O2SAT 97; BMI 38.5
[2025-04-23 13:23] LABS: Glucose, Whole Blood 194 mg/dL (60-115)
[2025-04-23 13:33] VITALS: BP 156/80
== END 2025-04-23 13:31 | disposition home or self-care (01) ==
LOC: HO.ENCR 13:07
PROVIDERS: PCP Internal Medicine; Visit Provider Physician Assistant
DX: E11.65 Type 2 diabetes mellitus with hyperglycemia (principal); Z79.4 Long term (current) use of insulin; E66.01 Morbid (severe) obesity due to excess calories; I10 Essential (primary) hypertension; F14.20 Cocaine dependence, uncomplicated

== ENCOUNTER → 2025-04-23 13:07 | Outpatient (BNVA) | payer OTHER, SELFPAY | PROVIDERS: PCP Internal Medicine; Visit Provider Physician Assistant | DX: E11.65 Type 2 diabetes mellitus with hyperglycemia (principal); E66.01 Morbid (severe) obesity due to excess calories; Z68.38 Body mass index [BMI] 38.0-38.9, adult; I10 Essential (primary) hypertension; F14.20 Cocaine dependence, uncomplicated; G47.33 Obstructive sleep apnea (adult) (pediatric); I25.2 Old myocardial infarction; Z86.73 Personal history of transient ischemic attack (TIA), and cerebral infarction without residual deficits; Z79.4 Long term (current) use of insulin; Z79.85 Long-term (current) use of injectable non-insulin antidiabetic drugs; Z79.899 Other long term (current) drug therapy; Z99.89 Dependence on other enabling machines and devices | CPT/HCPCS: 82947; 99212 ==

== ENCOUNTER 2025-08-26 12:59 | Outpatient (AMB) | payer OTHER, SELFPAY ==
[2025-08-26 13:07] VITALS: BP 162/88; PULSE 87; O2SAT 97; BMI 38.2
--- NOTE | 2025-08-26 13:07 | MHC.PC.OV ---
Vital Signs 08/26/25 13:07 Height 5 ft 11 in Weight 274 lb BMI 38.2 BP 162/88 H Blood Pressure Location Lt brachial Position Sitting Pulse 87 Pulse Source Pulse Oximeter Pulse Oximetry (%) 97 Oxygen Delivery Method Room Air Intake Visit Reasons: DM RE Allergies soybean Allergy (Mild, Verified 08/26/25 13:08) hives No Known Drug Allergies Allergy (Unknown, Verified 08/26/25 13:08) none seasonal Allergy (Mild, Uncoded 08/26/25 13:08) congestion Medication List - Last Reconciled 08/26/25 by Mike Bagley MD albuterol sulfate 90 mcg/actuation (Proventil HFA) 2 puffs inhalation Q4-6H PRN aspirin (Adult Low Dose Aspirin) 81 mg PO DAILY blood pressure monitor (Blood Pressure Kit) As directed blood sugar diagnostic (FreeStyle Lite Strips) Use daily As directed to check blood glucose blood sugar diagnostic (FreeStyle Lite Strips) Use daily As directed to check blood glucose blood-glucose meter (FreeStyle Lite Meter kit) Use daily As directed to check blood sugars blood-glucose sensor (FreeStyle Gael 3 Plus Sensor device) Use daily As directed to monitor glucose blood-glucose,jackscrew man,cont (FreeStyle Gael 3 [place]) Use daily As directed to monitor blood glucose [CANE As directed] cholecalciferol (vitamin D3) 50 mcg PO DAILY 90 days MDD 50mcg clotrimazole 1% 1 appl topical BID 4 weeks diclofenac sodium 1% (Voltaren Arthritis Pain) 4 grams topical QID dulaglutide (Trulicity) 4.5 mg (0.5 mL) subcut QWEEK insulin degludec (Tresiba FlexTouch U-100 insulin) 10 units (0.1 mL) subcut DAILY lancets (FreeStyle Lancets) use daily as directed to check blood glucose lancets (FreeStyle Lancets) use daily as directed to check blood glucose lisinopril-hydrochlorothiazide 20-12.5 mg 1 tab PO DAILY mecobalamin (vitamin B12) 1,000 mcg PO DAILY 3 months MDD 1000mcg miconazole nitrate 2% (Zeasorb AF) 1 appl topical BID mometasone-formoterol 200-5 mcg/actuation (Dulera) 2 puffs inhalation BID omeprazole 20 mg PO DAILY 90 days pen needle, diabetic Use daily As directed to administer insulin rosuvastatin 40 mg PO DAILY sertraline 25 mg PO BEDTIME tiotropium bromide 2.5 mcg/actuation (Spiriva Respimat) 2 puffs inhalation QAM 30 days trazodone 100 mg PO BEDTIME PRN Tobacco use date assessed: 04/14/25 Dental Screening Dental Screen Date: 04/14/25 HPI HPI Comments History of Present Illness Details History of Present Illness The patient is a 60-year-old obese male presenting for a follow-up visit. His last visit was in March 2025. He has a past medical history of GERD, hypercholesterolemia, tobacco use, obstructive sleep apnea, COPD, generalized anxiety disorder, cerebrovascular accident, hypertension, diabetes mellitus, hepatic steatosis, polysubstance abuse, and coronary artery disease. He was seen by endocrinology in April 2025. Laboratory results from March 2025 showed a normal blood count, normal electrolytes, normal renal function with a creatinine of 1.3, normal iron, and normal liver function. His hemoglobin A1c was 6.0%. However, his LDL was elevated, PSA was abnormal, and both vitamin B12 and vitamin D levels were low. Health Maintenance The patient was advised to get his flu shot and a shingles shot, which is available at outside pharmacies. Fasting lab work was ordered to check his CBC, CMP, HbA1c, and lipid panel. Social History - Substance Use: The patient is a current smoker and has a history of polysubstance abuse. - Diet: He was advised on a low-fat diet for his reflux and general healthy eating. Results - Labs from March 2025: - CBC: Normal. - Electrolytes: Normal. - Creatinine: 1.3. - Hemoglobin A1c: 6.0%. - Iron studies: Normal. - Liver function tests: Normal. - LDL: Elevated. - PSA: Abnormal. - Vitamin B12: Low. - Vitamin D: Low. [facility] Medical History (Updated 08/26/25 @ 13:26 by Mike Bagley MD) Personal history of nicotine dependence Left elbow pain Left knee pain Left knee pain Left ankle pain Right shoulder pain Low back pain Renal insufficiency Acute kidney injury superimposed on CKD Colon cancer screening Colonoscopy refused Colon cancer screening Otitis media Cocaine abuse History of heroin abuse DOLL (dyspnea on exertion) Blood pressure elevated without history of HTN History of NV (myocardial infarction) Elevated blood sugar Uncontrolled type 2 diabetes mellitus with hyperglycemia, with long-term current use of insulin Opioid use disorder Cervical pain (neck) LFT elevation Impaired fasting blood sugar Numbness of right hand Sexually transmitted disease exposure Polysubstance abuse Osteoarthritis COPD (chronic obstructive pulmonary disease) Peripheral vascular disease History of renal calculi Anxiety and depression Tobacco abuse Insomnia Obesity (BMI 30-39.9) EDUARDO (obstructive sleep apnea) Hypercholesterolemia Vitamin D deficiency Surgical History History of extraction of renal calculus History of repair of rotator cuff Family History Father Medical history unknown Mother Seizure CVD (cerebrovascular disease) Hypertension Mental health disorder Brother Hypertension Diabetes Asthma Substance use disorder CVD (cerebrovascular disease) Son Murder Maternal Aunt Schizophrenia Social History Housing: Other Alcohol intake: current Alcohol intake frequency: a few times a month Patient Tobacco Use Status: Current everyday Tobacco user Tobacco use type: Cigarette Cigarette Packs Per Day: 1 Cigarettes Per Day: 8 e-Cigarette/Vaping Use: Never Used Second Hand Smoke Exposure: Yes service: No Current occupational status: unemployed Cognitive needs: No Hearing needs: No Vision needs: Yes Questionnaire PHQ-9 Over the last 2 weeks, how often have you been bothered by any of the following problems? 1. Little interest or pleasure in doing things: nearly every day 2. Feeling down, depressed, or hopeless: nearly every day 3. Trouble falling or staying asleep, or sleeping too much: nearly every day 4. Feeling tired or having little energy: nearly every day 5. Poor appetite or overeating: nearly every day 6. Feeling bad about yourself - or that you are a failure or have let yourself or your family down: nearly every day 7. Trouble concentrating on things, such as reading the newspaper or watching television: not at all 8. Moving or speaking so slowly that other people could have noticed. Or the opposite - being so fidgety or restless that you have been moving around a lot more than usual: not at all 9. Thoughts that you would be better off or of hurting yourself in some way: not at all Total score: 18 Depression Screening Interpretation: Positive Depression Screening Done: Yes Source: Developed by Drs. Ricardo Love, Stephanie Javier, Yobany Victor and colleagues, with an educational ernestine from [employer]. Thrive Questionnaire Date Thrive assessed: 04/14/25 I am a: Patient What is your living situation today?: I choose not to answer this question Within the past 12 months, did the food you bought not last and you didn't have the money to get more?: Often true Within the past 12 months, did you worry whether your food would run out before you got money to buy more?: Often true Do you have trouble paying for medicines?: No Do you have trouble getting transportation to medical appointments?: No Do you have trouble paying your heating and electricity bill?: No Do you have trouble taking care of your child, family member or friend?: I choose not to answer this question Do you have trouble with day-to-day activities such as bathing, preparing meals, shopping, managing finances, etc.?: No Are you currently unemployed and looking for a job?: Yes Are you interested in more education?: No Currently or been in a relationship where the following occur: I choose not to answer THRIVE Score: 2 TAMIE-7 AMB Questionnaire TAMIE-7 Date TAMIE - 7 assessed: 09/30/24 Source: Developed by Drs. Ricardo Love, Stephanie Javier, Yobany Victor and colleagues, with an educational ernestine from [employer]. Review of Systems Narrative Review of Systems Physical exam (Primary Care) Vital Signs: Last Vital Signs Pulse 87 08/26/25 13:07 BP 162/88 H 08/26/25 13:07 Pulse Ox 97 08/26/25 13:07 Oxygen Delivery Method Room Air 08/26/25 13:07 BMI result Body Mass Index 38.2 Tobacco/Smoking Status: Tobacco use Status Tobacco use date assessed 04/14/25 08/26/25 13:08 Patient Tobacco Use Status Current everyday Tobacco 08/26/25 13:08 Tobacco use type Cigarette 08/26/25 13:08 e-Cigarette/Vaping Use Never Used 08/26/25 13:08 PHQ-9: PHQ-9 Score PHQ-9: Total score 18 08/26/25 14:59 Depression Screening Interpretation: Positive Thrive Assessment: Date of Thrive Assessment Date Thrive assessed 04/14/25 08/26/25 13:08 Currently or been in a relationship where the following occur: I choose not to answer Narrative Physical Exam - Constitutional: Obese male. - HEENT: Patient is edentulous. - Neurologic: Observed with repetitive lip-smacking and automatic tongue movements, suggestive of tardive dyskinesia. Const General: alert; No acute distress Eyes Conjunctivae: conjunctivae normal Resp Auscultation: clear to auscultation bilaterally Cardio Rate: regular rate Rhythm: regular rhythm GI Inspection: Yes normal to inspection Extrem General: Yes normal to inspection and No edema Results AMB Hemoglobin A1c AMB Hemoglobin A1c 7.1 % Last Edit by Audrey Villarreal CMA on 08/26/25 13:24 Results Reviewed Results Reviewed: Laboratory Last Values Hgb A1c (Clinic) 7.1 % (4.0-6.0) H 08/26/25 13:10 Coding Level of Care Code Est Pt Level 4 (62820) Complex visit Add On G2211 Diagnoses Type 2 diabetes mellitus with hyperglycemia E11.65 Vitamin B 12 deficiency E53.8 Vitamin D insufficiency E55.9 Hypercholesterolemia E78.00 Primary hypertension I10 Hypertension type: primary hypertension Coronary artery disease I25.10 GERD (gastroesophageal reflux disease) K21.9 Fatty liver K76.0 Stage 3b chronic kidney disease N18.32 Chronic kidney disease stage 3 subtype: stage 3b (GFR 30-44) Tobacco abuse Z72.0 EDUARDO (obstructive sleep apnea) G47.33 Assessment & Plan Assessment & Plan (1) Type 2 diabetes mellitus with hyperglycemia: Code(s): E11.65 - Type 2 diabetes mellitus with hyperglycemia Category: Medical Plan: Decrease the amount of carbohydrate intake, pasta, bread, rice and potatoes are all sugar and that is aside from all the sweet stuff, remember that fruits are good but they are Sweet also. Hemoglobin A1c goal of less than 6.5. Patient is on Trulicity at 4.5 mg once a week Tresiba 10 units once a day. seeing ENDO and insulin on hold due to hypoglycemia (2) Vitamin B 12 deficiency: Code(s): E53.8 - Deficiency of other specified B group vitamins Category: Medical Plan: Discussed about the need to take vitamin B12 (3) Vitamin D insufficiency: Code(s): E55.9 - Vitamin D deficiency, unspecified Category: Medical Plan: Vitamin-D 6227-8915 units once a day (4) Hypercholesterolemia: Code(s): E78.00 - Pure hypercholesterolemia, unspecified Category: Medical Plan: Avoid fried foods, chicken skin, eggs, butter margarine, pastries and meat. Be it pork or beef they have a lot of cholesterol LDL goal of less than 70 and triglyceride of less than 150 patient is on rosuvastatin 40 mg once a day (5) Hypertension: Code(s): I10 - Essential (primary) hypertension Category: Medical Qualifiers: Hypertension type: primary hypertension Qualified Code(s): I10 - Essential (primary) hypertension Plan: Continue with blood pressure medication. Decrease salt intake and exercise lisinopril hydrochlorothiazide 20/12.5 mg once a day admits to not take the med (6) Coronary artery disease: Code(s): I25.10 - Atherosclerotic heart disease of [place] coronary artery without angina pectoris Category: Medical Plan: Control the cholesterol, weight, blood pressure, diabetes on aspirin 81 mg once a day (7) GERD (gastroesophageal reflux disease): Code(s): K21.9 - Gastro-esophageal reflux disease without esophagitis Category: Medical Plan: Avoid the foods that causes that usually spicy foods, tomato products, juices, coffee, soda and foods that your sensitive to. After eating do not lie down, allow 3-4 hours before in lie down. And keep the head of bed above 30 degrees to avoid the acid from going up. (8) Fatty liver: Comment: November 2022 Code(s): K76.0 - Fatty (change of) liver, not elsewhere classified Category: Medical Plan: Low-fat diet and exercise (9) CKD (chronic kidney disease) stage 3, GFR 30-59 ml/min: Code(s): N18.30 - Chronic kidney disease, stage 3 unspecified Category: Medical Qualifiers: Chronic kidney disease stage 3 subtype: stage 3b (GFR 30-44) Qualified Code(s): N18.32 - Chronic kidney disease, stage 3b Plan: Keep well hydrated and avoid NSAIDs (10) Tobacco abuse: Code(s): Z72.0 - Tobacco use Category: Medical Plan: Patient is strongly advised to stop smoking! states < 10 a day (11) EDUARDO (obstructive sleep apnea): Comment: cannot tolerate CPAP Code(s): G47.33 - Obstructive sleep apnea (adult) (pediatric) Category: Medical Plan: cannot tolerate CPAP Plan Plan Patient was informed and verbally consented to the use of an ambient scribe for clinic note documentation during this visit. 1. Type 2 Diabetes Mellitus The patient's last hemoglobin A1c was 6.0%, which is below the goal of 6.5%. He will continue his current regimen of Trulicity 4.5 mg weekly and Tresiba 10 units daily. An A1c will be rechecked with upcoming fasting labs. 2. Hypercholesterolemia The patient has elevated LDL cholesterol with a goal of less than 70 mg/dL to prevent heart attack and stroke. He will continue rosuvastatin 20 mg daily, and a fasting lipid panel is ordered to monitor levels. 3. Vitamin B12 And D Deficiencies The patient was found to have low vitamin B12 and D levels. He will continue his vitamin B12 supplement and was advised to take 4386-4825 units of vitamin D daily. 4. Hypertension Blood pressure is well-controlled. He will continue hydrochlorothiazide as prescribed. Renal function will be monitored with upcoming labs. 5. Secondary Prevention Of Cardiovascular Disease He will continue aspirin 81 mg daily for secondary prevention. 6. Gastroesophageal Reflux Disease His current reflux medication is well-tolerated. He was advised to follow a low-fat diet. 7. Tobacco Use Disorder The patient continues to smoke. He was strongly advised to quit. Discussion Notes I discussed the need for fasting blood work with the patient to monitor his cholesterol, kidney function, and diabetes control. I explained that his LDL cholesterol goal is less than 70 to reduce his risk for heart attack and stroke, and although his medication is helping, we need to get the level lower. I noted his last A1c of 6.0 was good and that the goal is to keep it below 6.5. I observed some automatic movements of his tongue and lips, which could potentially be related to medications, and inquired about it. I strongly advised him to quit smoking. We discussed immunizations, and I informed him he needs a shingles vaccination, which he can get at a pharmacy, as well as a flu shot. I provided a lab requisition for the necessary blood work. Patient Instructions - It is very important that you stop smoking. - Please go to a lab to have fasting blood work done. - Continue taking all your medications as prescribed, including those for diabetes, cholesterol, blood pressure, and reflux. - Continue taking your vitamin B12 and vitamin D supplements. - You need to get a shingles vaccine, which you can receive at a pharmacy. - Remember to get your yearly flu shot. - Continue to focus on healthy eating and a low-fat diet. Orders: Orders AMB Hemoglobin A1c Today Z13.9 - Encounter for screening, unspecified Comprehensive Met. Panel Today I25.10 - Atherosclerotic heart disease of [place] coronary artery without angina pectoris Thyroid Stimulating Hormone Today I25.10 - Atherosclerotic heart disease of [place] coronary artery without angina pectoris Free T4 (Free Thyroxine) Today I25.10 - Atherosclerotic heart disease of [place] coronary artery without angina pectoris Complete Blood Count Auto Diff Today I25.10 - Atherosclerotic heart disease of [place] coronary artery without angina pectoris Lipid Panel Today E78.00 - Pure hypercholesterolemia, unspecified, I25.10 - Atherosclerotic heart disease of [place] coronary artery without angina pectoris Vitamin B12 and Folate Today I25.10 - Atherosclerotic heart disease of [place] coronary artery without angina pectoris Vitamin D 25-OH Total Today I25.10 - Atherosclerotic heart disease of [place] coronary artery without angina pectoris Referrals Ophthalmology Referral E11.65 - Type 2 diabetes mellitus with hyperglycemia
== END 2025-08-26 13:35 | disposition home or self-care (01) ==
LOC: HO.HMCH 13:00
PROVIDERS: PCP Internal Medicine; Visit Provider Internal Medicine
DX: I12.9 Hypertensive chronic kidney disease with stage 1 through stage 4 chronic kidney disease, or unspecified chronic kidney disease (principal); E11.65 Type 2 diabetes mellitus with hyperglycemia; N18.32 Chronic kidney disease, stage 3b; E53.8 Deficiency of other specified B group vitamins; E55.9 Vitamin D deficiency, unspecified; E78.00 Pure hypercholesterolemia, unspecified; I25.10 Atherosclerotic heart disease of native coronary artery without angina pectoris; K21.9 Gastro-esophageal reflux disease without esophagitis; K76.0 Fatty (change of) liver, not elsewhere classified; Z72.0 Tobacco use; G47.33 Obstructive sleep apnea (adult) (pediatric)

== ENCOUNTER → 2025-08-26 12:59 | Outpatient (BNVA) | payer OTHER, SELFPAY | PROVIDERS: PCP Internal Medicine; Visit Provider Internal Medicine | DX: E11.65 Type 2 diabetes mellitus with hyperglycemia (principal); E11.22 Type 2 diabetes mellitus with diabetic chronic kidney disease; I12.9 Hypertensive chronic kidney disease with stage 1 through stage 4 chronic kidney disease, or unspecified chronic kidney disease; N18.32 Chronic kidney disease, stage 3b; E53.8 Deficiency of other specified B group vitamins; E55.9 Vitamin D deficiency, unspecified; E78.00 Pure hypercholesterolemia, unspecified; I25.10 Atherosclerotic heart disease of native coronary artery without angina pectoris; K21.9 Gastro-esophageal reflux disease without esophagitis; K76.0 Fatty (change of) liver, not elsewhere classified; G47.33 Obstructive sleep apnea (adult) (pediatric); F17.210 Nicotine dependence, cigarettes, uncomplicated | CPT/HCPCS: 83036; 99212 ==

== ENCOUNTER 2025-08-30 06:51 | Outpatient (REF) | payer OTHER, SELFPAY ==
[2025-08-30 08:00] LABS: Hematocrit 47.9 % (42.0-52.0); Hemoglobin 15.7 g/dl (14.0-18.0); Imm Gran Abs Auto 0.04 X10*3/uL (0.00-0.03); Imm Gran Pct Auto 0.5 % (0.0-0.4); Lymphocytes Absolute Auto 1.7 X10*3/uL (1.2-4.9); MANUAL DIFF FLAG SCAN; Mean Corpuscular HGB Conc 32.8 g/dl (31.0-36.0); Mean Corpuscular Hemoglobin 29.3 pg (27.0-33.0); Mean Corpuscular Volume 89.4 fL (80.0-98.0); NRBC Abs Auto 0.000 X10*3/uL (0.0-0.012); NRBC Pct Auto 0.0 /100WBC (0.0-0.2); PLT CLUMP 1; Red Blood Count 5.36 X10*6/uL (4.60-5.80); SCAN SMEAR FLAG 1
[2025-08-30 08:04] LABS: Appearance Urine Clear; Glucose Urine UA Negative (Negative); PH 5.5 (5.0-9.0); Specific Gravity - Urine 1.025 (1.005-1.025); UMIC TRIGGER UA YES
[2025-08-30 08:17] LABS: Alanine Aminotransferase 19 U/L (0-40); Albumin Level 4.9 g/dL (3.5-5.0); Alkaline Phosphatase 123 U/L (39-117); Anion Gap 14 (12-20); Aspartate Amino Transferase 18 U/L (5-37); Blood Urea Nitrogen 15 mg/dL (9-16); Calcium 10.0 mg/dL (8.4-10.2); Carbon Dioxide 19 mmol/L (22-29); Chloride 108 mmol/L (96-108); Cholesterol 288 mg/dL (<200); Estimated Glomerular Filt Rate > 60; HDL Cholesterol 55 mg/dL (>40); Potassium 3.7 mmol/L (3.3-5.1); Sodium 137 mmol/L (135-145); Total Protein 8.9 g/dL (6.5-8.0); Triglycerides 137 mg/dL (<150)
[2025-08-30 08:33] LABS: Thyroid Stimulating Hormone 0.79 uIU/mL (0.32-4.0)
[2025-08-30 08:34] LABS: Free T4 (Free Thyroxine) 1.14 ng/dL (0.71-1.85)
[2025-08-30 08:41] LABS: Folate 11.0 ng/mL (> or = 4.0); Vitamin B12 227 pg/mL (200-900)
[2025-08-30 08:47] LABS: Protein/Creatinine Ratio, Ur 0.13 (<0.2); Total Protein Urine Random 30 mg/dL (<12)
[2025-08-30 08:51] LABS: White Blood Count 7.4 X10*3/uL (4.8-10.8)
== END 2025-08-30 06:52 | disposition home or self-care (01) ==
LOC: HO.LAB 06:51
PROVIDERS: Absent Provider Internal Medicine Nephrology; PCP Internal Medicine; Visit Provider Internal Medicine
DX: Z00.00 Encounter for general adult medical examination without abnormal findings (principal); I25.10 Atherosclerotic heart disease of native coronary artery without angina pectoris; E78.00 Pure hypercholesterolemia, unspecified; F41.1 Generalized anxiety disorder; E11.65 Type 2 diabetes mellitus with hyperglycemia; E11.22 Type 2 diabetes mellitus with diabetic chronic kidney disease; I12.9 Hypertensive chronic kidney disease with stage 1 through stage 4 chronic kidney disease, or unspecified chronic kidney disease; N18.32 Chronic kidney disease, stage 3b; F33.1 Major depressive disorder, recurrent, moderate; E66.9 Obesity, unspecified; K21.9 Gastro-esophageal reflux disease without esophagitis; K76.0 Fatty (change of) liver, not elsewhere classified; I63.9 Cerebral infarction, unspecified; J44.9 Chronic obstructive pulmonary disease, unspecified; G47.33 Obstructive sleep apnea (adult) (pediatric); Z91.148 Patient's other noncompliance with medication regimen for other reason; F17.210 Nicotine dependence, cigarettes, uncomplicated; Z68.38 Body mass index [BMI] 38.0-38.9, adult
CPT/HCPCS: 36415; 80053; 80061; 81001; 81003; 82306; 82570; 82607; 82746; 84156; 84439; 84443; 85025; 99396

== ENCOUNTER 2025-08-30 15:30 | Outpatient (AMB) | payer OTHER, SELFPAY ==
--- NOTE | 2025-08-30 15:33 | MHC.PC.OV ---
Vital Signs 08/30/25 15:34 Height 5 ft 11 in Weight 275 lb BMI 38.4 BP 158/90 H Blood Pressure Location Lt brachial Position Sitting Pulse 97 Pulse Source Pulse Oximeter Temp 97.3 F Temp Source Temporal Artery Scan Pulse Oximetry (%) 98 Oxygen Delivery Method Room Air Intake Visit Reasons: annual exam Emt Intermediate Required: No Accompanied by: Self / Same As Patient Allergies soybean Allergy (Mild, Verified 08/30/25 15:34) hives No Known Drug Allergies Allergy (Unknown, Verified 08/30/25 15:34) none seasonal Allergy (Mild, Uncoded 08/26/25 13:08) congestion Medication List - Last Reconciled 08/30/25 by Janki Freire PA-C albuterol sulfate 90 mcg/actuation (Proventil HFA) 2 puffs inhalation Q4-6H PRN aspirin (Adult Low Dose Aspirin) 81 mg PO DAILY blood pressure monitor (Blood Pressure Kit) As directed blood sugar diagnostic (FreeStyle Lite Strips) Use daily As directed to check blood glucose blood sugar diagnostic (FreeStyle Lite Strips) Use daily As directed to check blood glucose blood-glucose meter (FreeStyle Lite Meter kit) Use daily As directed to check blood sugars blood-glucose sensor (FreeStyle Gael 3 Plus Sensor device) Use daily As directed to monitor glucose blood-glucose,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 finishing supervisor,cont (FreeStyle Gael 3 [place]) Use daily As directed to monitor blood glucose [CANE As directed] cholecalciferol (vitamin D3) 50 mcg PO DAILY 90 days MDD 50mcg clotrimazole 1% 1 appl topical BID 4 weeks diclofenac sodium 1% (Voltaren Arthritis Pain) 4 grams topical QID dulaglutide (Trulicity) 4.5 mg (0.5 mL) subcut QWEEK insulin degludec (Tresiba FlexTouch U-100 insulin) 10 units (0.1 mL) subcut DAILY lancets (FreeStyle Lancets) use daily as directed to check blood glucose lancets (FreeStyle Lancets) use daily as directed to check blood glucose lisinopril-hydrochlorothiazide 20-12.5 mg 1 tab PO DAILY mecobalamin (vitamin B12) 1,000 mcg PO DAILY 3 months MDD 1000mcg miconazole nitrate 2% (Zeasorb AF) 1 appl topical BID mometasone-formoterol 200-5 mcg/actuation (Dulera) 2 puffs inhalation BID omeprazole 20 mg PO DAILY 90 days pen needle, diabetic Use daily As directed to administer insulin rosuvastatin 40 mg PO DAILY sertraline 25 mg PO BEDTIME tiotropium bromide 2.5 mcg/actuation (Spiriva Respimat) 2 puffs inhalation QAM 30 days trazodone 100 mg PO BEDTIME PRN Tobacco use date assessed: 08/30/25 Dental Screening Dental Screen Date: 08/30/25 Did you have a dental visit in the last 12 months?: No Did you have a dental problem in the last 6 months where you did not have access to dental care?: No HPI annual exam HPI Details 60-year-old male with past medical history substance abuse, prior CA, prior CVA, fatty liver, uncontrolled type 2 diabetes, hypertension, hyperlipidemia, COPD, tobacco abuse, obstructive sleep apnea on CPAP, obesity and GERD last seen 08/2025 coming in for annual exam. Presenting for an annual physical exam. His recent lab work showed an HbA1c of 7.1%. His total cholesterol jumped to 206 mg/dL from a previous value of 116 mg/dL, which is attributed to a period of non-adherence with his rosuvastatin. The patient reports he has started retaking all his medications as of today with the help of a nurse who visits daily to administer his insulin. For sleep apnea, he has a CPAP machine but has had difficulty using it and is awaiting help from his nurse. He continues to smoke cigarettes and is not currently interested in quitting. colonoscopy: Cologuard 2024 PSA: ordered vaccines: UTD declines flu PFSH Medical History Personal history of nicotine dependence Left elbow pain Left knee pain Left knee pain Left ankle pain Right shoulder pain Low back pain Renal insufficiency Acute kidney injury superimposed on CKD Colon cancer screening Colonoscopy refused Colon cancer screening Otitis media Cocaine abuse History of heroin abuse DOLL (dyspnea on exertion) Blood pressure elevated without history of HTN History of CA (myocardial infarction) Elevated blood sugar Uncontrolled type 2 diabetes mellitus with hyperglycemia, with long-term current use of insulin Opioid use disorder Cervical pain (neck) LFT elevation Impaired fasting blood sugar Numbness of right hand Sexually transmitted disease exposure Polysubstance abuse Osteoarthritis COPD (chronic obstructive pulmonary disease) Peripheral vascular disease History of renal calculi Anxiety and depression Tobacco abuse Insomnia Obesity (BMI 30-39.9) EDUARDO (obstructive sleep apnea) Hypercholesterolemia Vitamin D deficiency Surgical History History of extraction of renal calculus History of repair of rotator cuff Family History Father Medical history unknown Mother Seizure CVD (cerebrovascular disease) Hypertension Mental health disorder Brother Hypertension Diabetes Asthma Substance use disorder CVD (cerebrovascular disease) Son Murder Maternal Aunt Schizophrenia Social History Housing: Other Alcohol intake: current Alcohol intake frequency: a few times a month Patient Tobacco Use Status: Current everyday Tobacco user Tobacco use type: Cigarette Cigarette Packs Per Day: 1 Cigarettes Per Day: 8 e-Cigarette/Vaping Use: Currently Using Second Hand Smoke Exposure: Yes service: No Current occupational status: unemployed Cognitive needs: No Hearing needs: No Vision needs: Yes Questionnaire PHQ-9 Over the last 2 weeks, how often have you been bothered by any of the following problems? 1. Little interest or pleasure in doing things: not at all 2. Feeling down, depressed, or hopeless: nearly every day 3. Trouble falling or staying asleep, or sleeping too much: nearly every day 4. Feeling tired or having little energy: nearly every day 5. Poor appetite or overeating: several days 6. Feeling bad about yourself - or that you are a failure or have let yourself or your family down: not at all 7. Trouble concentrating on things, such as reading the newspaper or watching television: not at all 8. Moving or speaking so slowly that other people could have noticed. Or the opposite - being so fidgety or restless that you have been moving around a lot more than usual: not at all 9. Thoughts that you would be better off or of hurting yourself in some way: not at all Total score: 10 Source: Developed by Drs. Ricardo Love, Stephanie Javier, Yobany Victor and colleagues, with an educational ernestine from [employer]. Thrive Questionnaire Date Thrive assessed: 08/30/25 I am a: Patient What is your living situation today?: I choose not to answer this question Within the past 12 months, did the food you bought not last and you didn't have the money to get more?: Often true Within the past 12 months, did you worry whether your food would run out before you got money to buy more?: Often true Do you have trouble paying for medicines?: No Do you have trouble getting transportation to medical appointments?: No Do you have trouble paying your heating and electricity bill?: No Do you have trouble taking care of your child, family member or friend?: I choose not to answer this question Do you have trouble with day-to-day activities such as bathing, preparing meals, shopping, managing finances, etc.?: No Are you currently unemployed and looking for a job?: Yes Are you interested in more education?: No Currently or been in a relationship where the following occur: I choose not to answer THRIVE Score: 2 AUDIT C Alcohol Use Questionnaire (AUDIT-C) 1. How often do you have a drink containing alcohol?: Never 3. How often do you have six or more drinks on one occasion?: Never Total Score: 0 TAMIE-7 AMB Questionnaire TAMIE-7 Date TAMIE - 7 assessed: 08/30/25 Feeling nervous, anxious, or on edge: 0 = Not at all Not being able to stop or control worryin = Not at all Worrying too much about different things: 0 = Not at all Trouble relaxin = Not at all Being so restless that it is hard to sit still: 0 = Not at all Becoming easily annoyed or irritable: 0 = Not at all Feeling afraid as if something awful might happen: 0 = Not at all Total TAMIE-7 score (0-4 normal; 5-9 mild; 10-14 moderate; 15-21 severe): 0 Source: Developed by Drs. Ricardo Love, Stephanie Javier, Yobany Victor and colleagues, with an educational ernestine from [employer]. Review of Systems Const Denies body aches, Denies fatigue, Denies fever(s), Denies frequent falls, Denies headache(s) and Denies weakness Eyes Reports no additional complaints and Denies change in vision ENT Denies dysphagia, Denies dizziness, Denies headache(s), Denies nasal congestion and Denies odynophagia Card Denies chest pain, Denies syncope, Denies irregular heart rhythm, Denies leg edema, Denies lightheadedness and Denies dyspnea Resp Denies cough and Denies dyspnea GI Denies abdominal pain, Denies constipation, Denies dysphagia, Reports dyspepsia, Reports heartburn, Denies diarrhea, Denies nausea, Denies odynophagia and Denies vomiting Denies dysuria, Denies urinary frequency, Denies urinary hesitancy and Denies urinary urgency Musc Denies back pain and Denies myalgias Skin/Breast Reports system reviewed and no additional complaints, except as documented Neuro Denies dizziness, Denies syncope, Denies frequent falls, Denies headache(s) and Denies weakness Psych Reports no additional complaints Endo Denies fatigue Physical exam (Primary Care) Vital Signs: Last Vital Signs Temp 97.3 F 08/30/25 15:34 Pulse 97 08/30/25 15:34 BP 158/90 H 08/30/25 15:34 Pulse Ox 98 08/30/25 15:34 Oxygen Delivery Method Room Air 08/30/25 15:34 BMI result Body Mass Index 38.4 Tobacco/Smoking Status: Tobacco use Status Tobacco use date assessed 08/30/25 08/30/25 15:34 Patient Tobacco Use Status Current everyday Tobacco 08/30/25 15:34 Tobacco use type Cigarette 08/30/25 15:34 e-Cigarette/Vaping Use Currently Using 08/30/25 15:34 PHQ-9: PHQ-9 Score PHQ-9: Total score 10 08/30/25 16:20 Thrive Assessment: Date of Thrive Assessment Date Thrive assessed 08/30/25 08/30/25 15:44 Currently or been in a relationship where the following occur: I choose not to answer Const General: cooperative, healthy appearing, comfortable and no acute distress Orientation/consciousness: patient oriented x3 HENMT Head: Yes normocephalic Ears: hearing grossly normal bilaterally, external ears normal, TM's normal bilaterally and EAC's normal General nose exam: Normal external nose present Face and sinus: Yes normal facial exam and Yes sinuses nontender Mouth: Normal oral and palatal mucosa present and tongue normal Throat: Yes posterior oropharynx normal Eyes General: appearance normal, both eyes and all related structures Conjunctivae: conjunctivae normal Pupils: Equal, round and reactive pupils present EOM: EOMs intact bilaterally and No Nystagmus present Neck Neck: Yes normal visual inspection, Yes full ROM and Yes no lymphadenopathy Chest Chest palpation & inspection: normal inspection of the chest Resp Effort & Inspection: normal respiratory effort Auscultation: clear to auscultation bilaterally, no crackles, no rales, no rhonchi, no wheezes and breath sounds present Cardio Rate: regular rate Rhythm: regular rhythm Peripheral pulses: radial pulses present and dorsalis pedis present GI Inspection: Yes normal to inspection and No Abdominal wall edema Palpation (GI): Soft to palpation, not firm and nontender Auscultation: normal bowel sounds Rectal Exam - Male: Yes deferred General: Yes no CVA tenderness Back/Spine/Pelvis Back: no CVA tenderness Skin General skin exam: no rashes or lesions noted Neuro General: patient oriented x3 Cranial nerves: Yes Equal, round and reactive pupils present, Yes Midline tongue present, Yes Ability to bilaterally elevate shoulders present and No Nystagmus present Gait exam (Neuro): Normal gait present Extrem General: Yes normal to inspection, Yes full ROM, No no pedal edema and No edema Psych Speech and movement: Normal speech and movement present Affect: normal affect Insight: Good insight present (Psych) Judgement: Good judgement present (Psych) Coding Level of Care Code Est Pt Prev Care 40-64y(28411) Diagnoses Annual physical exam Z00.00 Non compliance w medication regimen Z91.148 Generalized anxiety disorder F41.1 Major depressive disorder, recurrent, moderate F33.1 Primary hypertension I10 Hypertension type: primary hypertension Coronary artery disease I25.10 Hypercholesterolemia E78.00 Type 2 diabetes mellitus with hyperglycemia E11.65 Obesity (BMI 30-39.9) E66.9 GERD (gastroesophageal reflux disease) K21.9 Fatty liver K76.0 Stage 3b chronic kidney disease N18.32 Chronic kidney disease stage 3 subtype: stage 3b (GFR 30-44) CVA (cerebral vascular accident) I63.9 COPD (chronic obstructive pulmonary disease) J44.9 EDUARDO (obstructive sleep apnea) G47.33 Tobacco abuse Z72.0 Assessment & Plan Assessment & Plan (1) Annual physical exam: Code(s): Z00.00 - Encounter for general adult medical examination without abnormal findings Category: Medical Plan: Patient reports he finished the Cologuard testing this up-to-date. He is due for prostate screening and blood work was ordered today. He is also order for additional blood work to be completed prior to his next visit. Healthy diet and regular exercise is encouraged. (2) Non compliance w medication regimen: Code(s): Z91.148 - Patient's other noncompliance with medication regimen for other reason Category: Medical Plan: The patient expressed confusion about his medications and was non-adherent for a period, restarting all of them today. A printed list of his active medications was provided to him and faxed to his home nurse. Refills were sent for rosuvastatin, aspirin, omeprazole, and vitamin D. (3) Generalized anxiety disorder: Comment: [facility] Code(s): F41.1 - Generalized anxiety disorder Category: Medical Plan: Plan to restart on Sertraline 25mg at this time. He will reach out if he would like a dose increase prior to his next visit. (4) Major depressive disorder, recurrent, moderate: Code(s): F33.1 - Major depressive disorder, recurrent, moderate Category: Medical Plan: See above (5) Hypertension: Code(s): I10 - Essential (primary) hypertension Category: Medical Qualifiers: Hypertension type: primary hypertension Qualified Code(s): I10 - Essential (primary) hypertension Plan: Continue on current blood pressure medication. Avoid salt intake and encourage healthy diet and regular exercise. Blood pressure elevated in the office today however he has not been taking his medications as prescribed and today was the first day taking his medications. HE will monitor at home and follow up with his PCP in 3 months. (6) Coronary artery disease: Code(s): I25.10 - Atherosclerotic heart disease of [place] coronary artery without angina pectoris Category: Medical Plan: LDL goal less than 70, BP goal less than 130/80 and A1c goal less than 7%. Continue on daily ASA. Asymptomatic at this time. (7) Hypercholesterolemia: Code(s): E78.00 - Pure hypercholesterolemia, unspecified Category: Medical Plan: The patient's total cholesterol has significantly increased to 206 mg/dL from a prior 116 mg/dL, which is attributed to non-adherence with his medication. He has restarted rosuvastatin today, and a refill will be sent to his pharmacy. Fasting labs, including a lipid panel, will be repeated in three months prior to his next appointment. (8) Type 2 diabetes mellitus with hyperglycemia: Code(s): E11.65 - Type 2 diabetes mellitus with hyperglycemia Category: Medical Plan: Decrease the amount of carbohydrates such as pasta, bread, rice, and potatoes and limit the amount of sweets. Although fruits are generally healthy they should be eaten in moderation as they are still high in sugar. Hemoglobin A1c goal of less than 7%. he will work on medication compliance and follow up in 3 months. (9) Obesity (BMI 30-39.9): Code(s): E66.9 - Obesity, unspecified Category: Medical Plan: Healthy diet and regular exercise is encouraged. (10) GERD (gastroesophageal reflux disease): Code(s): K21.9 - Gastro-esophageal reflux disease without esophagitis Category: Medical Plan: Avoid trigger foods such as citrus, tomato products, soda, caffeine, spicy foods and other foods that may be irritating to your stomach. Avoid laying flat 3-4 hours after eating and elevate the head of the bed 30 degrees to prevent acid from moving into the esophagus. Plan to restart on omeprazole. (11) Fatty liver: Comment: November 2022 Code(s): K76.0 - Fatty (change of) liver, not elsewhere classified Category: Medical Plan: Healthy diet and regular exercise is encouraged. Continue to monitor LFTS and last blood work WNL. (12) CKD (chronic kidney disease) stage 3, GFR 30-59 ml/min: Code(s): N18.30 - Chronic kidney disease, stage 3 unspecified Category: Medical Qualifiers: Chronic kidney disease stage 3 subtype: stage 3b (GFR 30-44) Qualified Code(s): N18.32 - Chronic kidney disease, stage 3b Plan: Work on strict control of blood sugars. Avoid kidney irritants such as NSAIDs and stay well hydrated. (13) CVA (cerebral vascular accident): Comment: January 2023 New area of right caudate nucleus hypodensity since the previous exam. Question acute versus old infarct. There is hypodensity along the anterior limb of right internal capsule which is unchanged likely chronic infarct. No acute intracranial bleed. No acute fracture, dislocation or subluxation seen the cervical spine. Small bone density of the tip of C2 dense likely an old fracture or an osteophyte. The prevertebral soft tissues are norm January 2023 Code(s): I63.9 - Cerebral infarction, unspecified Category: Medical Plan: Continue to monitor blood pressure, cholesterol and blood sugars. (14) COPD (chronic obstructive pulmonary disease): Code(s): J44.9 - Chronic obstructive pulmonary disease, unspecified Category: Medical Plan: Recommend compliance with inhalers and he is working this with his visiting nurse (15) EDUARDO (obstructive sleep apnea): Comment: cannot tolerate CPAP Code(s): G47.33 - Obstructive sleep apnea (adult) (pediatric) Category: Medical Plan: He will begin working with his nurse for compliance with CPAP and he will report if he needs any additional equipment for his machine (16) Tobacco abuse: Code(s): Z72.0 - Tobacco use Category: Medical Plan: Smoking cigarettes and the use of tobacco can be harmful. We discussed the importance of stopping and options to aid in smoking cessation. DEclines NRT today. Plan This note was constructed using voice recognition software. While every effort has been made to ensure accuracy and soap grinder, still areas may have been included sometimes these areas may affect the content or meeting of the given symptoms. Total time spent caring for the patient today was 30 minutes. This includes time spent before the visit reviewing the chart, time spent during the visit, and time spent after the visit and documentation. Patient was informed and verbally consented to the use of an ambient scribe for clinic note documentation during this visit. Orders: Orders Lipid Panel 3 Months E78.00 - Pure hypercholesterolemia, unspecified Hemoglobin A1c 3 Months E11.65 - Type 2 diabetes mellitus with hyperglycemia PSA, Ultra Sensitive 08/30/25 Z12.5 - Encounter for screening for malignant neoplasm of prostate Medications: Refilled aspirin (Adult Low Dose Aspirin) 81 mg PO DAILY 90 tabs 0RF I63.9 - Cerebral infarction, unspecified omeprazole 20 mg PO DAILY 90 caps 2RF 90 days K21.9 - Gastro-esophageal reflux disease without esophagitis rosuvastatin 40 mg PO DAILY 90 tabs 1RF trazodone 100 mg PO BEDTIME PRN 30 tabs 1RF for insomnia blood-glucose sensor (FreeStyle Gael 3 Plus Sensor device) Use daily As directed to monitor glucose 2 ea 5RF E08.29 - Diabetes mellitus due to underlying condition with other diabetic kidney complication, R80.9 - Proteinuria, unspecified, Z79.4 - termite treater (current) use of insulin cholecalciferol (vitamin D3) take one capsule daily at bedtime. 50 mcg PO DAILY 90 caps 3RF insufficient levels of vitamin D 90 days MDD 50mcg E55.9 - Vitamin D deficiency, unspecified mecobalamin (vitamin B12) take one 1000mcg tablet daily at bedtime. 1,000 mcg PO DAILY 90 tabs 0RF 3 months MDD 1000mcg E53.8 - Deficiency of other specified B group vitamins sertraline 25 mg PO BEDTIME 90 tabs 1RF Discontinued clotrimazole 1% Discontinued Reason: Patient no longer taking 1 appl topical BID 4 weeks 45 grams 1RF B35.3 - Tinea pedis miconazole nitrate 2% (Zeasorb AF) Discontinued Reason: Patient no longer taking 1 appl topical BID 85 grams 0RF B35.3 - Tinea pedis
[2025-08-30 15:34] VITALS: BP 158/90; PULSE 97; TEMP 36.3; O2SAT 98; BMI 38.4
== END 2025-08-30 16:12 | disposition home or self-care (01) ==
LOC: HO.HMCH 15:31
PROVIDERS: PCP Internal Medicine
DX: Z00.00 Encounter for general adult medical examination without abnormal findings (principal); I12.9 Hypertensive chronic kidney disease with stage 1 through stage 4 chronic kidney disease, or unspecified chronic kidney disease; F33.1 Major depressive disorder, recurrent, moderate; E11.65 Type 2 diabetes mellitus with hyperglycemia; N18.32 Chronic kidney disease, stage 3b; I63.9 Cerebral infarction, unspecified; J44.9 Chronic obstructive pulmonary disease, unspecified; Z68.38 Body mass index [BMI] 38.0-38.9, adult; E66.9 Obesity, unspecified; F41.1 Generalized anxiety disorder; Z91.148 Patient's other noncompliance with medication regimen for other reason; I25.10 Atherosclerotic heart disease of native coronary artery without angina pectoris; E78.00 Pure hypercholesterolemia, unspecified; K21.9 Gastro-esophageal reflux disease without esophagitis; K76.0 Fatty (change of) liver, not elsewhere classified; G47.33 Obstructive sleep apnea (adult) (pediatric); Z72.0 Tobacco use

== ENCOUNTER 2025-09-15 14:37 | Outpatient (AMB) | payer OTHER, SELFPAY ==
[2025-09-15 14:39] VITALS: BP 110/80; PULSE 103; O2SAT 97; BMI 37.9
--- NOTE | 2025-09-15 14:39 | HO.NEPHOV_ITS ---
Vital Signs 09/15/25 14:39 Height 5 ft 11 in Weight 272 lb BMI 37.9 BP 110/80 Blood Pressure Location Rt brachial Position Sitting Pulse 103 H Pulse Source Pulse Oximeter Pulse Oximetry (%) 97 Oxygen Delivery Method Room Air Intake Visit Reasons: 3 MO FU-LVM, r/s 07/09 Operations Systems Specialist Required: No Accompanied by: Self / Same As Patient Allergies soybean Allergy (Mild, Verified 09/15/25 14:40) hives No Known Drug Allergies Allergy (Unknown, Verified 09/15/25 14:40) none seasonal Allergy (Mild, Uncoded 08/26/25 13:08) congestion HPI Comments Details: 59-year-old male with poly substance abuse, ongoing cocaine use, prior DC, prior CVA, uncontrolled type 2 diabetes, hypertension, hyperlipidemia, tobacco use, EDUARDO on CPAP, obesity presented today in the office in follow up for HARESH on CKD. He sees [facility] [place]. He claims to have better blood sugar control. He denies nausea, vomiting, diarrhea, orthostatic symptoms, renal calculi, chest pain , SOB, PND, orthopnea, hematuria or any other systemic complaints. He has a new diagnosis of EDUARDO and is going to go on CPAP.He is abusing cocaine, [facility] Medical History Personal history of nicotine dependence Left elbow pain Left knee pain Left knee pain Left ankle pain Right shoulder pain Low back pain Renal insufficiency Acute kidney injury superimposed on CKD Colon cancer screening Colonoscopy refused Colon cancer screening Otitis media Cocaine abuse History of heroin abuse DOLL (dyspnea on exertion) Blood pressure elevated without history of HTN History of DC (myocardial infarction) Elevated blood sugar Uncontrolled type 2 diabetes mellitus with hyperglycemia, with long-term current use of insulin Opioid use disorder Cervical pain (neck) LFT elevation Impaired fasting blood sugar Numbness of right hand Sexually transmitted disease exposure Polysubstance abuse Osteoarthritis COPD (chronic obstructive pulmonary disease) Peripheral vascular disease History of renal calculi Anxiety and depression Tobacco abuse Insomnia Obesity (BMI 30-39.9) EDUARDO (obstructive sleep apnea) Hypercholesterolemia Vitamin D deficiency Surgical History History of extraction of renal calculus History of repair of rotator cuff Family History Father Medical history unknown Mother Seizure CVD (cerebrovascular disease) Hypertension Mental health disorder Brother Hypertension Diabetes Asthma Substance use disorder CVD (cerebrovascular disease) Son Murder Maternal Aunt Schizophrenia Social History Housing: Other Alcohol intake: current Alcohol intake frequency: a few times a month Patient Tobacco Use Status: Current everyday Tobacco user Tobacco use type: Cigarette Cigarette Packs Per Day: 1 Cigarettes Per Day: 8 e-Cigarette/Vaping Use: Currently Using Second Hand Smoke Exposure: Yes service: No Current occupational status: unemployed Cognitive needs: No Hearing needs: No Vision needs: Yes Review of Systems Const All systems reviewed & are unremarkable except as noted in HPI and below Physical Exam Vital Signs: Last Vital Signs Pulse 103 H 09/15/25 14:39 BP 110/80 09/15/25 14:39 Pulse Ox 97 09/15/25 14:39 Oxygen Delivery Method Room Air 09/15/25 14:39 BMI result Body Mass Index 37.9 Const General: comfortable and no acute distress Orientation/consciousness: patient oriented x3 HEENT Head: Yes normocephalic Mouth: Normal oral and palatal mucosa present Eyes EOM: EOMs intact bilaterally Neck Neck: Yes supple Resp Auscultation: clear to auscultation bilaterally Cardio Jugular venous distension: no JVD Rate: regular rate GI Palpation (GI): Soft to palpation Auscultation: normal bowel sounds General: Yes no CVA tenderness Back/Spine/Pelvis Back: no CVA tenderness Skin General skin exam: no rashes or lesions noted Neuro General: patient oriented x3 and moves all extremities Extrem General: Yes no pedal edema Results Reviewed Nephrology Results: Hgb, (14.0-18.0) 15.7 g/dl 08/30/25 WBC, (4.8-10.8) 7.4 X10*3/uL 08/30/25 Plt Count TNP 08/30/25 Sodium, (135-145) 137 mmol/L 08/30/25 Potassium, (3.3-5.1) 3.7 mmol/L 08/30/25 Chloride, (96-108) 108 mmol/L 08/30/25 Carbon Dioxide, (22-29) 19 mmol/L L 08/30/25 BUN, (9-16) 15 mg/dL 08/30/25 Creatinine, (0.5-1.4) 1.21 mg/dL 08/30/25 Calcium, (8.4-10.2) 10.0 mg/dL Δ 08/30/25 Urine Protein, (Neg-Trace) 30 (1+) mg/dL H 08/30/25 Urine Creatinine 235.21 mg/dL 08/30/25 Protein/Creatinin Ratio, (<0.2) 0.13 08/30/25 Renal US 09/04/24 Assessment & Plan Assessment & Plan (1) CKD (chronic kidney disease) stage 3, GFR 30-59 ml/min: Code(s): N18.30 - Chronic kidney disease, stage 3 unspecified Category: Medical Qualifiers: Chronic kidney disease stage 3 subtype: stage 3b (GFR 30-44) Qualified Code(s): N18.32 - Chronic kidney disease, stage 3b (2) Hypertension: Code(s): I10 - Essential (primary) hypertension Category: Medical Qualifiers: Hypertension type: primary hypertension Qualified Code(s): I10 - Ess ential (primary) hypertension Plan Jose E has 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 He is on ACEI. I am planning to initiate him on SGLT2i with time. He needs to lose weight. He should maintain good hydration, avoid cocaine as well as excess NSAID use. His urine out put is good. All these have been explained in detail. He does not need a renal biopsy now . F/U given Orders: Orders Creatinine 6 Months I10 - Essential (primary) hypertension, N18.32 - Chronic kidney disease, stage 3b Electrolytes 6 Months I10 - Essential (primary) hypertension, N18.32 - Chronic kidney disease, stage 3b Protein Creatinine Ratio, Ur 6 Months I10 - Essential (primary) hypertension, N18.32 - Chronic kidney disease, stage 3b Blood Urea Nitrogen 6 Months I10 - Essential (primary) hypertension, N18.32 - Chronic kidney disease, stage 3b Coding Level of Care Code Est Pt Level 4 (24584) Diagnoses Stage 3b chronic kidney disease N18.32 Chronic kidney disease stage 3 subtype: stage 3b (GFR 30-44) Primary hypertension I10 Hypertension type: primary hypertension
== END 2025-09-15 15:04 | disposition home or self-care (01) ==
LOC: HO.HKA 14:38
PROVIDERS: PCP Internal Medicine; Visit Provider Internal Medicine Nephrology
DX: N18.32 Chronic kidney disease, stage 3b (principal); I10 Essential (primary) hypertension
CPT/HCPCS: 99214

== ENCOUNTER → 2025-09-15 14:37 | Outpatient (BNVA) | payer OTHER, SELFPAY | PROVIDERS: PCP Internal Medicine; Visit Provider Internal Medicine Nephrology | DX: I12.9 Hypertensive chronic kidney disease with stage 1 through stage 4 chronic kidney disease, or unspecified chronic kidney disease (principal); E11.22 Type 2 diabetes mellitus with diabetic chronic kidney disease; N18.32 Chronic kidney disease, stage 3b; F14.10 Cocaine abuse, uncomplicated; F17.210 Nicotine dependence, cigarettes, uncomplicated; Z71.89 Other specified counseling; Z71.6 Tobacco abuse counseling | CPT/HCPCS: 99212 ==